=== PATIENT | female | born 1950 | race Caucasian/White ===

== ENCOUNTER 2016-10-23 12:01 | Outpatient (CLI) | payer MEDICAID, MEDICARE | END 2016-10-23 12:02 | disposition home or self-care (01) | DX: Z53.9 Procedure and treatment not carried out, unspecified reason (principal); N64.52 Nipple discharge; N64.4 Mastodynia ==

== ENCOUNTER 2016-10-30 15:55 | Outpatient (CLI) | payer MEDICARE, MEDICAID | END 2016-10-30 15:56 | disposition home or self-care (01) | DX: J44.9 Chronic obstructive pulmonary disease, unspecified (principal); R05 Cough ==

== ENCOUNTER 2016-12-09 07:22 | Day surgery (SDC) | payer MEDICARE, MEDICAID ==
[2016-12-09] MEDS ORDERED: LACTATED RINGERS 1,000 ML IV ONE (08:04)
[2016-12-09] MEDS ORDERED: BUPIVACAINE 0.25% PF 30 ML VIAL SUBQ ONE (09:28)
[2016-12-09] MEDS ORDERED: LIDOCAINE 1%-EPI 1:100000 20 ML MDV SUBQ ONE (09:28)
[2016-12-09] MEDS ORDERED: GLYCOPYRROLATE 1 MG/5 ML VIAL IVP ONE (09:30)
[2016-12-09] MEDS ORDERED: KETAMINE 500 MG/10 ML VIAL IVP ONE (09:30)
[2016-12-09] MEDS ORDERED: MIDAZOLAM 2 MG/2 ML VIAL IVP ONE (09:30)
[2016-12-09] MEDS ORDERED: ceFAZolin 1 GM VIAL IV ONE (09:30)
== END 2016-12-09 07:23 | disposition home or self-care (01) ==
PROC: 0JBL0ZZ Excision of Right Upper Leg Subcutaneous Tissue and Fascia, Open Approach (ICD-10-PCS; principal; 2016-12-09 08:30)
DX: D17.1 Benign lipomatous neoplasm of skin and subcutaneous tissue of trunk (principal); Z82.49 Family history of ischemic heart disease and other diseases of the circulatory system; Z81.1 Family history of alcohol abuse and dependence; Z87.891 Personal history of nicotine dependence; Z90.710 Acquired absence of both cervix and uterus; Z90.79 Acquired absence of other genital organ(s); Z90.722 Acquired absence of ovaries, bilateral; Z88.0 Allergy status to penicillin; J44.9 Chronic obstructive pulmonary disease, unspecified; E78.5 Hyperlipidemia, unspecified
CPT/HCPCS: 27043; 88304; J7120

== ENCOUNTER 2017-01-21 00:48 | Emergency (ER) | payer MEDICARE, MEDICAID | END 2017-01-21 03:19 | disposition home or self-care (01) | DX: N13.2 Hydronephrosis with renal and ureteral calculous obstruction (principal); Z87.442 Personal history of urinary calculi; K57.30 Diverticulosis of large intestine without perforation or abscess without bleeding; E78.00 Pure hypercholesterolemia, unspecified; J44.9 Chronic obstructive pulmonary disease, unspecified; E03.9 Hypothyroidism, unspecified; M19.90 Unspecified osteoarthritis, unspecified site ==

== ENCOUNTER 2017-02-20 17:52 | Outpatient (CLI) | payer MEDICARE, MEDICAID ==
[2017-02-20] MEDS ORDERED: IOPAMIDOL-300 100 ML VIAL IVP ONE (18:24)
--- NOTE | 2017-02-21 18:13 | CT Report ---
CONTRAST ENHANCED CT EXAM OF THE CHEST: 02/20/2017 CLINICAL HISTORY: Multiple pulmonary nodules. TECHNIQUE: Patient received 100 mL of Isovue-300 as a contrast agent. A CAT scan of the chest was o btained with axial, coronal and sagittal reconstruction images done at 5 x 5 mm intervals. FINDINGS: Mediastinum demonstrates no significant adenopathy is seen. Normal cardiac size is noted. No significant coronary artery calcification is seen. Axillary regions show no significant abnormality. Lung windows demonstrate multiple pulmonary nodules bilaterally. The largest nodule lies within the lateral aspect of the superior segment of the lingula. This nodule has spiculated margins. It measu res 1.3 cm x 1.2 cm. This finding may have been present on an old portable chest x-ray dated 014. It was certainly present on a chest x-ray from 10/30/2016. Its size is not dramatically change d. The spiculated margins of this lesion raise concern in regard to malignancy. Considering it was possibly present on 06/05/2014 without dramatic change in size, suggests the possibility that it may be an atypical appearing benign nodule with a secondary consideration being a very slow growing malig loan. Other possibilities, of course, include infectious processes such as TB. At least 17 additio nal nodules are noted in the left lung, all of them smaller than the ones seen in the lateral aspect of the superior segment of the lingula. Right lung demonstrates at least 12 nodules, the largest of which is in the lateral segment of the right middle lobe and measures 0.6 cm. Adrenal glands demonstrate a small left adrenal mass having CT numbers of 54 and measuring 1.5 cm. The right kidney shows four calculi in association with its pyelocalyceal system. Three calculi are associated with the upper pole calices. They measure 0.2 cm, 0.3 cm, 0.8 cm. There is a partially o bstructing calculus in the right renal pelvis. Bones show no significant abnormality. If patient has any old chest CTs or even older chest x-rays, they should be obtained for comparison w ith present study. Otherwise, chest consult should be considered for further evaluation. IMPRESSION: NUMEROUS SMALL PULMONARY NODULES ARE NOTED IN THE LUNG [place]. THE LARGEST ONE IS LOCAT ED WITHIN THE LATERAL SEGMENT OF THE LINGULA AND MEASURES 1.3 CM X 1.2 CM. THIS LESION IS SPICULATED . FINDINGS SUGGEST THAT IT MAY HAVE BEEN PRESENT ON AN OLD CHEST X-RAY DATED FAR BACK 06/05/20 14 WITHOUT CHANGE. THIS SUGGESTS THE POSSIBILITY OF A BENIGN LESION SUCH A NONCALCIFIED GRANULOMA OR SARCOID. SLOW GROWING CARCINOMA OR METASTATIC DISEASE CANNOT BE COMPLETELY EXCLUDED. RECOMMEND OLD CHEST X-RAYS AND/OR CHEST CTS BE OBTAINED FOR COMPARISON. IF NONE ARE AVAILABLE, THEN A CHEST CO NSULT SHOULD BE CONSIDERED. OTHER OPTIONS FOR FURTHER WORKUP INCLUDE BRONCHOSCOPY, PET/CT, AND/OR CT -GUIDED LUNG BIOPSY. JOB #: [id number] EXT JOB #:[id number]
== END 2017-02-20 17:53 | disposition home or self-care (01) ==
LOC: DI 17:52
PROVIDERS: ATTEND Family Medicine
DX: R91.8 Other nonspecific abnormal finding of lung field (principal)
CPT/HCPCS: 71260; Q9967

== ENCOUNTER 2017-03-12 14:19 | Outpatient (CLI) | payer MEDICARE, MEDICAID ==
--- NOTE | 2017-03-12 16:52 | Mammography Report ---
DIGITAL DIAGNOSTIC BILATERAL MAMMOGRAM: 03/12/2017 CLINICAL INDICATION: Left breast pain, nipple discharge. COMPARISON: 01/07/2014, 04/11/2010. TECHNIQUE: Bilateral CC and MLO views, left true lateral view, laterally exaggerated craniocaudal vie w, and spot magnification view. FINDINGS: The breasts again demonstrate postoperative changes of reduction. Heterogeneous fibrogland ular parenchyma is again seen. Postoperative changes are stable. No suspicious masses, clustered micr ocalcifications, or regions of architectural distortion are identified. IMPRESSION: BENIGN FINDINGS. RECOMMENDATION: ROUTINE ANNUAL SCREENING UNLESS OTHERWISE CLINICALLY INDICATED. BIRADS CATEGORY 2-BENIGN FINDINGS. STANDARD QUALIFYING STATEMENTS 1. This examination was reviewed with the aid of Computer-Aided Detection (CAD). 2. A negative or benign imaging report should not delay biopsy if clinically suspicious findings are present. Consider surgical consultation if warranted. More than 5% of cancers are not identified by i maging. 3. Dense breasts may obscure an underlying neoplasm. JOB #: [id number] EXT JOB #:[id number]
== END 2017-03-12 14:20 | disposition home or self-care (01) ==
LOC: DI 14:19
PROVIDERS: ATTEND Family Medicine
DX: N64.52 Nipple discharge (principal); N64.4 Mastodynia
CPT/HCPCS: 77066

== ENCOUNTER 2017-04-14 06:40 | Outpatient (CLI) | payer MEDICARE, MEDICAID ==
[2017-04-14 12:52] LABS: BASOPHILS % (AUTO) 0.4 %; EOSINOPHILS # (AUTO) 0.2 10^3/uL (0.0-0.7); EOSINOPHILS % (AUTO) 2.9 %; HGB - HEMOGLOBIN 14.4 g/dL (12.0-16.0); LYMPHOCYTES # (AUTO) 1.6 10^3/uL (1.5-3.5); MEAN CORPUSCULAR HEMOGLOBIN 30.9 pg (27.0-31.0); MEAN CORPUSCULAR HGB CONC 33.4 g/dL (32.0-36.0); MEAN CORPUSCULAR VOLUME 92.5 fL (81.0-99.0); MEAN PLATELET VOLUME 9.9 fL (7.9-10.8); MONOCYTES # (AUTO) 0.6 10^3/uL (0.0-1.0); MONOCYTES % (AUTO) 11.5 %; NEUTROPHILS # (AUTO) 3.1 10^3/uL (1.5-6.6); NEUTROPHILS % (AUTO) 56.2 %; NUCLEATED RED BLOOD CELLS AUTO 0.1 /100WBC; RED BLOOD COUNT 4.64 10^6/uL (4.20-5.40); RED CELL DISTRIBUTION WIDTH 12.7 % (12.0-15.0); UNCORRECTED WHITE BLOOD COUNT 5.6 x10^3/uL; WHITE BLOOD COUNT 5.6 x10^3/uL (4.8-10.8)
[2017-04-14 13:23] LABS: ALBUMIN/GLOBULIN RATIO 1.1 (1.0-2.2); BILIRUBIN,TOTAL 0.4 mg/dL (0.2-1.0); BUN - BLOOD UREA NITROGEN 14 mg/dL (6-20); CALCIUM 9.8 mg/dL (8.5-10.3); CARBON DIOXIDE - CO2 29 mmol/L (21-32); CHLORIDE 103 mmol/L (101-111); CHOL/HDL RATIO 4.6 (<4.4); CHOLESTEROL 251 mg/dL; CREATININE 0.6 mg/dL (0.4-1.0); GFR - MDRD 100 (>89); GLUCOSE 124 mg/dL (70-100); HDL CHOLESTEROL 55 mg/dL; LDL/HDL RATIO 2.9 (<4.4); POTASSIUM 4.1 mmol/L (3.5-5.0); SODIUM 141 mmol/L (135-145); TOTAL PROTEIN 7.6 g/dL (6.7-8.2); TRIGLYCERIDES 196 mg/dL; VLDL CHOLESTEROL 39 mg/dL
== END 2017-04-14 06:41 | disposition home or self-care (01) ==
LOC: LAB.N 06:40
PROVIDERS: ATTEND Family Medicine
DX: L40.9 Psoriasis, unspecified (principal); E78.5 Hyperlipidemia, unspecified
CPT/HCPCS: 36415; 80053; 80061; 85025

== ENCOUNTER 2017-06-18 12:43 | Outpatient (CLI) | payer MEDICARE, MEDICAID | END 2017-06-18 12:44 | disposition critical access hospital (66) | LOC: EMS 12:43 | PROVIDERS: ATTEND Surgery | DX: R10.9 Unspecified abdominal pain (principal); R11.2 Nausea with vomiting, unspecified | CPT/HCPCS: A0425; A0427 ==

== ENCOUNTER 2017-06-18 12:59 | Emergency (ER) | payer MEDICARE, MEDICAID ==
[2017-06-18] MEDS ORDERED: KETOROLAC 60 MG/2 ML VIAL IVP STA (13:22)
[2017-06-18] MEDS ORDERED: ONDANSETRON 4 MG/2 ML VIAL IVP STA (13:22)
[2017-06-18] MEDS ORDERED: SODIUM CHLORIDE 0.9% 1,000 ML IV ONE (13:31)
[2017-06-18] MEDS ORDERED: KETOROLAC 30 MG/ML VIAL ONE ×2 (13:35→13:36)
[2017-06-18] MEDS ORDERED: ONDANSETRON 4 MG/2 ML VIAL ONE (13:35)
[2017-06-18 14:06] LABS: BILIRUBIN,URINE NEGATIVE (NEGATIVE); PH,URINE 5.5 PH (5.0-7.5)
[2017-06-18 14:07] LABS: UA w/ MICROSCOPIC CHARGE YES
[2017-06-18 14:10] LABS: BASOPHILS % (AUTO) 0.3 %; EOSINOPHILS # (AUTO) 0.1 10^3/uL (0.0-0.7); EOSINOPHILS % (AUTO) 1.3 %; HCT - HEMATOCRIT 43.7 % (37.0-47.0); HGB - HEMOGLOBIN 14.7 g/dL (12.0-16.0); LYMPHOCYTES # (AUTO) 1.2 10^3/uL (1.5-3.5); LYMPHOCYTES % (AUTO) 16.6 %; MEAN CORPUSCULAR HEMOGLOBIN 31.5 pg (27.0-31.0); MEAN CORPUSCULAR HGB CONC 33.7 g/dL (32.0-36.0); MEAN CORPUSCULAR VOLUME 93.3 fL (81.0-99.0); MEAN PLATELET VOLUME 9.4 fL (7.9-10.8); MONOCYTES # (AUTO) 0.7 10^3/uL (0.0-1.0); NEUTROPHILS # (AUTO) 5.3 10^3/uL (1.5-6.6); NEUTROPHILS % (AUTO) 72.8 %; RED BLOOD COUNT 4.68 10^6/uL (4.20-5.40); RED CELL DISTRIBUTION WIDTH 12.9 % (12.0-15.0); UNCORRECTED WHITE BLOOD COUNT 7.3 x10^3/uL; WHITE BLOOD COUNT 7.3 x10^3/uL (4.8-10.8)
--- NOTE | 2017-06-18 14:13 | ED Physician Documentation ---
History of Present Illness - Stated complaint Stated Complaint: FLANK PX - Chief complaint Chief Complaint: Abd Pain - Additonal information Additional information: hx from pt difficult to obatin hx 2/2 her pain seems she developed severe R flank and diffuse abd pain at 1215, no fever or chills, + nausea, no diarrhea, no urinary sx she states no pior surgery or hx of similar sx per EMR hx renal colic Review of Systems Constitutional: denies: Fever, Chills Cardiac: denies: Chest pain / pressure Respiratory: denies: Dyspnea, Cough GI: reports: Abdominal Pain, Nausea : denies: Dysuria Musculoskeletal: reports: Back pain Endocrine: denies: Easy bruising / bleeding Immunocompromised: denies: Immunocompromised PD PAST MEDICAL HISTORY - Past Medical History Past Medical History: No Cardiovascular: High cholesterol Respiratory: COPD Neuro: None Endocrine/Autoimmune: HyPOthyroidism GI: None : Kidney stones HEENT: Other Psych: None Musculoskeletal: Osteoarthritis, Chronic back pain Derm: Psoriasis - Past Surgical History Past Surgical History: Yes /[employer]ENDANT: Hysterectomy, Oophrectomy, Breast reduction HEENT: Tonsil/Adenoidectomy - Present Medications Home Medications: Ambulatory Orders Medication Instructions Recorded Confirmed Ibuprofen [Advil] 200 mg PO BID 12/09/16 12/09/16 Ondansetron Odt [Zofran] 4 mg TL Q6H PRN #14 tablet 01/21/17 Tamsulosin [Flomax] 0.4 mg PO DAILY #7 capsule 01/21/17 HYDROcod/ACETAM 5/325 [[place] 5/325] 1 ea PO Q6H PRN #6 tablet 06/18/17 Sulfamethox/Trimeth 800/160 1 cap PO BID #14 06/18/17 [Bactrim Ds 800/160] - Allergies Allergies/Adverse Reactions: Allergies Allergy/AdvReac Type Severity Reaction Status Date / Time aspirin Allergy Nausea Verified 01/21/17 01:02 Penicillins Allergy vomiting, Verified 01/21/17 01:02 visual changes - Social History Does the pt smoke?: No Smoking Status: Never smoker Does the pt drink ETOH?: Yes Does the pt have substance abuse?: No - POLST Patient has POLST: No PD ED PE NORMAL - Vitals Vital signs reviewed: Yes - General General: Alert and oriented X 3 - HEENT HEENT: PERRL - Neck Neck: Supple, no meningeal sign - Cardiac Cardiac: RRR - Respiratory Respiratory: No respiratory distress, Clear bilaterally - Abdomen Abdomen: Soft, Other (mod diffuse TTP without peritoneal signs) - Back Back: No spinal TTP - Derm Derm: Other (psoriaos to hands and back, no shingles) - Extremities Extremities: No deformity - Neuro Neuro: No motor deficit, No sensory deficit - Psych Psych: Other (angry and in pain) Results - Vitals Vitals: Vital Signs - 24 hr 06/18/17 13:04 Temperature 36.4 C L Heart Rate 99 Respiratory 19 Rate Blood Pressure 137/83 H O2 Saturation 94 Oxygen O2 Source Room air - Labs Labs: Laboratory Tests 06/18/17 06/18/17 06/18/17 13:20 13:46 13:46 WBC 7.3 RBC 4.68 Hgb 14.7 Hct 43.7 MCV 93.3 MCH 31.5 H MCHC 33.7 RDW 12.9 Plt Count 205 MPV 9.4 Neut # 5.3 Lymph # 1.2 L [place] # 0.7 Eos # 0.1 Baso # 0.0 Absolute Nucleated RBC 0.00 Nucleated RBCs 0.0 Sodium 141 Potassium 4.4 Chloride 103 Carbon Dioxide 25 Anion Gap 13.0 BUN 22 H Creatinine 0.7 Estimated GFR (MDRD) 83 L Glucose 147 H Calcium 9.9 Total Bilirubin 0.7 AST 20 ALT 27 Alkaline Phosphatase 61 Total Protein 8.0 Albumin 4.1 Globulin 3.9 Albumin/Globulin Ratio 1.1 Lipase 27 Urine Color YELLOW Urine Clarity CLOUDY Urine pH 5.5 Ur Specific [place] >=1.030 H Urine Protein 30 H Urine Glucose (UA) NEGATIVE Urine Ketones NEGATIVE Urine Occult Blood LARGE H Urine Nitrite NEGATIVE Urine Bilirubin NEGATIVE Urine Urobilinogen 0.2 (NORMAL) Ur Leukocyte Esterase SMALL H Urine RBC 11-25 H Urine WBC 11-25 H Ur Squamous Epith Cells MOD Squamous H Urine Bacteria Moderate H Ur Microscopic Review INDICATED Urine Culture Comments NOT INDICATED - Rads (name of study) CT AP Radiology: See rad report PD MEDICAL DECISION MAKING - ED course ED course: large blood and renal stones and flank pain - but no dydro or ureteral stone on CT - may recently passed (pain has resolved) also + for infection since no obstructive process feel safe to dc with antibiotics Departure - Departure Disposition: 01 Home, Self Care Clinical Impression: Pyelonephritis, Renal colic on right side Instructions: ED Stone Renal W Colic, ED Kidney Infec Female Follow-Up: Renny Dumont MD [Primary Care Provider] - (Friday for a recheck before the weekend) Prescriptions: Sulfamethox/Trimeth 800/160 [Bactrim Ds 800/160] 1 cap PO BID #14 HYDROcod/ACETAM 5/325 [[place] 5/325] 1 ea PO Q6H PRN #6 tablet PRN Reason: Severe Pain Comments: The urine shows blood and well as infection. The CT scan shows many kidney stones but none presently being passed So I think it is safe for you to go home with pain medication and antibiotics And please get your blood pressure rechecked - it was high today
[2017-06-18 14:24] LABS: UR CULTURE IF IND NOT INDICATED
[2017-06-18 14:27] LABS: ALBUMIN/GLOBULIN RATIO 1.1 (1.0-2.2); BILIRUBIN,TOTAL 0.7 mg/dL (0.2-1.0); CALCIUM 9.9 mg/dL (8.5-10.3); CREATININE 0.7 mg/dL (0.4-1.0); POTASSIUM 4.4 mmol/L (3.5-5.0)
--- NOTE | 2017-06-18 16:10 | CT Preliminary Report ---
Exam: CT Abdomen/Pelvis W/O IMPRESSION: 1. Multiple bilateral renal calculi similar to previous study, the largest in the right renal pelvis. No hydronephrosis. 2. Moderate diverticulosis and other chronic or incidental findings. [facility] SITE ID: [id number]
--- NOTE | 2017-06-18 16:13 | CT Report ---
EXAM: CT ABDOMEN AND PELVIS (CT KUB) EXAM DATE: 06/18/2017 03:46 PM. CLINICAL HISTORY: R flank pain hx stones. COMPARISONS: None. TECHNIQUE: Routine axial helical CT imaging was performed through the abdomen and pelvis without IV c ontrast. Reconstructions: Coronal and sagittal. In accordance with CT protocol optimization, one or more of the following dose reduction techniques w ere utilized for this exam: automated exposure control, adjustment of mA and/or KV based on patient s ize, or use of iterative reconstructive technique. FINDINGS: Lung Bases: Numerous small nodules, the largest measuring 6 mm, similar to previous study. No acute i nfiltrate, consolidation, or effusion. Right Kidney/Ureter: UVJ stone measuring 14 x 9 mm, similar to previous study. At least 6 additional nonobstructing renal calculi, the largest measuring 6 mm. No ureteral stone. Otherwise unremarkable. Left Kidney/Ureter: Nonobstructing lower pole stone measuring about 6 x 3 mm. Otherwise unremarkable. No hydronephrosis. Other Solid Organs: Small left adrenal adenoma. Otherwise unremarkable adrenals. Unremarkable liver, spleen, and pancreas. Gallbladder/Bile Ducts: Unremarkable. Peritoneal Cavity: Moderate colonic diverticulosis. No diverticulitis at this time. Normal appendix. No bowel dilation. No free fluid, free air, or lymphadenopathy. Pelvic Organs: No bladder stones or wall thickening. Noncontrast images of the visualized pelvic orga ns are unremarkable. Vasculature: Unremarkable. Other: None. IMPRESSION: 1. Multiple bilateral renal calculi similar to previous study, the largest in the right renal pelvis. No hydronephrosis. 2. Moderate diverticulosis and other chronic or incidental findings. [facility] Referring Provider Line: [phone] SITE ID: [id number]
[2017-06-18 16:53] VITALS: BP 135/84
== END 2017-06-18 17:00 | disposition home or self-care (01) ==
LOC: EDUNIT# → ED 12:59
DX: N20.0 Calculus of kidney (principal); E03.9 Hypothyroidism, unspecified
CPT/HCPCS: 36415; 74176; 80053; 81001; 81003; 83690; 85025; 87086; 96374; 96375; 99283; 99284

== ENCOUNTER 2017-08-13 13:37 | Outpatient (CLI) | payer MEDICARE, MEDICAID ==
--- NOTE | 2017-08-13 16:16 | XRAY Report ---
TWO VIEW CHEST: 08/13/2017 CLINICAL INDICATION: Cough. COMPARISON: Chest CT of 02/20/2017, chest film of 10/30/2016. FINDINGS: Frontal and lateral views of the chest demonstrate a normal cardiac silhouette. The lungs remain hyperinflated, compatible with COPD. Pulmonary nodules are stable from previous. No new consol idation, effusion, or pneumothorax is present. IMPRESSION: STABLE HYPERINFLATION AND PULMONARY NODULES. NO EVIDENCE OF ACUTE CARDIOPULMONARY DISEAS E. JOB #: [id number] EXT JOB #:[id number]
== END 2017-08-13 13:38 | disposition home or self-care (01) ==
LOC: DI.N 13:37
PROVIDERS: ATTEND Family Medicine
DX: R91.8 Other nonspecific abnormal finding of lung field (principal)
CPT/HCPCS: 71020

== ENCOUNTER 2017-12-28 10:27 | Emergency (ER) | payer MEDICARE, MEDICAID ==
[2017-12-28 10:37] VITALS: BP 127/63
--- NOTE | 2017-12-28 13:34 | ED Physician Documentation ---
PD HPI Fall - Stated complaint Stated Complaint: HEAD PX/GLF - Chief complaint Chief Complaint: Trauma Hd/Nk - History obtained from History obtained from: Patient, Family - History of Present Illness Mechanism of injury: Lost balance Fall distance: Standing position Where injury occurred: Home Timing - onset: Today Injury(ies) location: Face, Neck, Right Upper Extremity Quality of pain: Pain, Throbbing Associated symptoms: Nasal drainage, Neck pain. No: LOC, AMS, Amnesia, Seizures , Ear drainage, Weakness, Paresthesias, Dyspnea, Nausea / vomiting, Hematemesis , Abdominal distension Symptoms improve with: Rest Worsens with: Movement, Palpation Contributing factors: No: Anticoagulated Similar symptoms before: Has not had sx before Recently seen: Not recently seen - Additional information Additional information: 67 y/o female was in her kitchen today when her knees gave out and she collapsed to the floor face first. She did not have LOC but she has pain in her face over the right maxillary sinus. She denies any visual changes and she denies nausea or dizziness. She did have a nose bleed. She has pain in her neck and in her right clavicle. Review of Systems Constitutional: denies: Fever, Chills Eyes: denies: Loss of vision, Decreased vision, Discharge, Irritation Ears: denies: Ear pain Nose: reports: Congestion, Sinus pressure / pain. denies: Rhinorrhea / runny nose Throat: denies: Sore throat Cardiac: denies: Chest pain / pressure, Palpitations Respiratory: denies: Dyspnea, Cough GI: denies: Abdominal Pain, Nausea, Vomiting : denies: Dysuria, Frequency Skin: denies: Rash Musculoskeletal: reports: Neck pain, Extremity pain, Joint pain. 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, Breast reduction HEENT: Tonsil/Adenoidectomy - Present Medications Home Medications: Ambulatory Orders Medication Instructions Recorded Confirmed Ibuprofen [Advil] 100 mg PO 12/28/17 cefUROXime axetil [Ceftin] 250 mg PO Q12H #10 tablet 12/28/17 - Allergies Allergies/Adverse Reactions: Allergies Allergy/AdvReac Type Severity Reaction Status Date / Time aspirin Allergy Nausea Verified 12/28/17 10:37 Penicillins Allergy vomiting, Verified 12/28/17 10:37 visual changes - Social History Does the pt smoke?: No Smoking Status: Never smoker Does the pt drink ETOH?: Yes Does the pt have substance abuse?: No - Immunizations Immunizations are current?: Yes - POLST Patient has POLST: No PD ED PE NORMAL - Vitals Vital signs reviewed: Yes (normal ) - General General: Alert and oriented X 3, No acute distress, Well developed/nourished - HEENT HEENT: PERRL, EOMI, Ears normal, Other (dry mucous membranes pain to palpation to the right maxillary sinus. There is no crepitance or deformity noticed and there is no entrapment present. There is not tenderness to the orbital rim except to the medial superior portion. ) - Neck Neck: Supple, no meningeal sign, Other (There is bony point tenderness to the right lower cervical spine. ) - Cardiac Cardiac: RRR, No murmur - Respiratory Respiratory: No respiratory distress, Clear bilaterally - Abdomen Abdomen: Soft, Non tender - Back Back: No CVA TTP, No spinal TTP - Derm Derm: Normal color, Warm and dry, No rash - Extremities Extremities: No deformity, No edema, Other (There is tenderness without deformity or crepitance to the right proximal clavicle. ) Results - Vitals Vitals: Vital Signs - 24 hr 12/28/17 10:32 Temperature 36.2 C L Heart Rate 89 Respiratory 16 Rate Blood Pressure 127/63 O2 Saturation 99 Oxygen O2 Source Room air - Rads (name of study) CT cervical spine without Radiology: Prelim report reviewed (Impression: 1. No acute osseous findings. Advanced multilevel cervical spondylosis, seen previously by MRI 12/08/2014. 2. Left carotid calcific atherosclerotic disease.), EMP read indepedently, See rad report Rt clavicle Radiology: Prelim report reviewed (Impression: No acute osseous abnormality.), EMP read indepedently, See rad report CT facial bones Radiology: Prelim report reviewed (Impression: 1. Slightly displaced, slightly depressed fracture of the anterior wall of the right maxillary sinus (series 3 image 83) with blood within the right maxillary sinus. 2. No CT evidence of additional facial fractures.), EMP read indepedently, See rad report Procedures - IVC sono (time) 1105 Bedside IVC sono: IVC measures (cm) (1.21), IVC collapsed c insp (cm) (complete) , Dehydration (mild est 1 liter) PD MEDICAL DECISION MAKING - ED course Complexity details: reviewed results, re-evaluated patient, considered differential, d/w patient, d/w family ED course: 67-year-old female with a face first fall does appear to have fracture through the right maxillary sinus with blood pooling in the sinus. Departure - Departure Disposition: 01 Home, Self Care Clinical Impression: Dehydration Fracture of maxillary sinus Qualifiers: Encounter type: initial encounter Fracture type: closed Qualified Code(s): S02.401A - Maxillary fracture, unspecified side, initial encounter for closed fracture Condition: Stable Instructions: ED Dehydration, ED Fx Face Follow-Up: Renny Dumont MD [Primary Care Provider] - Jerrell Rocha DMD [Physician No Access] - Prescriptions: cefUROXime axetil [Ceftin] 250 mg PO Q12H #10 tablet Discharge Date/Time: 12/28/17 14:16
--- NOTE | 2017-12-28 15:30 | CT Report ---
EXAM: CT CERVICAL SPINE WITHOUT CONTRAST DATE: 12/28/2017 11:47 AM. HISTORY: Fall with face injury, neck pain. COMPARISONS: Prior CT study chest 02/20/2017, prior plain film right clavicle 12/28/2017, prior MRI c ervical spine 12/08/2014. TECHNIQUE: Thin-section axial images were acquired of the cervical spine without contrast. Post-proce ssing: Coronal and sagittal reformats. Other: None. In accordance with CT protocol optimization, one or more of the following dose reduction techniques w ere utilized for this exam: automated exposure control, adjustment of mA and/or KV based on patient s ize, or use of iterative reconstructive technique. Findings: Relevant images are indicated (image number, series number). There is slight grade 1 anterolisthesis C2 on C3, grade 1 retrolisthesis C3 on C4, C4 and C5. There i s alignment C5-C6, C6-C7 with slight grade 1 anterolisthesis C7 on T1. There are no acute osseous findings. There is no fracture. There is mild left posterior atlantoaxial subluxation C1 on C2 with corresponding mild anterior subluxation on the right C1-C2 atlantoaxial art iculation. These degenerative changes appear present on the prior MRI cervical spine 12/08/2014. There is no prevertebral soft tissue swelling. Upper airway appears patent. There is no cervical para spinal mass or collection. Thyroid not enlarged. Mildly dense left carotid calcific atherosclerotic d isease. Impressions: 1. No acute osseous findings. Advanced multilevel cervical spondylosis, seen previously by MRI 2014. 2. Left carotid calcific atherosclerotic disease. [facility] Referring Provider Line: [phone] SITE ID: [id number]
--- NOTE | 2017-12-28 15:30 | XRAY Report ---
EXAM: RIGHT CLAVICLE RADIOGRAPHY EXAM DATE: 12/28/2017 11:59 AM. CLINICAL HISTORY: Fall right clavicle pain. COMPARISON: None. TECHNIQUE: 2 views. FINDINGS: Bones: No definite acute fracture. No focal osseous lesion. Joints: Moderate-severe acromioclavicular joint DJD. Soft Tissues: Unremarkable. IMPRESSION: No acute osseous abnormality. [facility] Referring Provider Line: [phone] SITE ID: [id number]
--- NOTE | 2017-12-28 15:30 | CT Preliminary Report ---
Exam: CT CERVICAL SPINE W/O Impressions: 1. No acute osseous findings. Advanced multilevel cervical spondylosis, seen previously by MRI 2014. 2. Left carotid calcific atherosclerotic disease. [facility] SITE ID: [id number]
--- NOTE | 2017-12-28 15:30 | CT Report ---
EXAM: CT MAXILLOFACIAL WITHOUT CONTRAST EXAM DATE: 12/28/2017 12:06 PM. CLINICAL HISTORY: Fall right maxillary and right orbital rim pain. COMPARISONS: CT sinuses 04/27/2014 TECHNIQUE: Thin-section axial images were acquired of the face without contrast. Post-processing: Cor onal and sagittal reformats. Other: None. In accordance with CT protocol optimization, one or more of the following dose reduction techniques w ere utilized for this exam: automated exposure control, adjustment of mA and/or KV based on patient s ize, or use of iterative reconstructive technique. FINDINGS: Soft Tissue: The infratemporal fossa and parapharyngeal spaces are unremarkable. Orbits: Status post right lens replacement surgery. Otherwise unremarkable. Bones/sinuses: There is a slightly displaced, slightly depressed fracture of the anterior wall of the right maxillary sinus (series 3 image 83) with blood within the right maxillary sinus. In addition, there is a large mucous retention cyst/polyp within the right maxillary sinus. Temporomandibular Joints: The temporomandibular joints are symmetric and normally located. Other: Moderate degenerative spondylosis visualized upper cervical spine. IMPRESSION: 1. Slightly displaced, slightly depressed fracture of the anterior wall of the right maxillary sinus (series 3 image 83) with blood within the right maxillary sinus. 2. No CT evidence of additional facial fractures. [facility] Referring Provider Line: [phone] SITE ID: [id number]
--- NOTE | 2017-12-28 15:30 | XRAY Preliminary Report ---
Exam: XR CLAVICLE RT IMPRESSION: No acute osseous abnormality. [facility] SITE ID: [id number]
== END 2017-12-28 14:16 | disposition home or self-care (01) ==
LOC: ED 10:27
DX: E86.0 Dehydration (principal); S02.401A Maxillary fracture, unspecified side, initial encounter for closed fracture; W18.30XA Fall on same level, unspecified, initial encounter; W22.09XA Striking against other stationary object, initial encounter; Y92.000 Kitchen of unspecified non-institutional (private) residence as the place of occurrence of the external cause; E05.90 Thyrotoxicosis, unspecified without thyrotoxic crisis or storm; E78.00 Pure hypercholesterolemia, unspecified
CPT/HCPCS: 70486; 72125; 99283; 99284

== ENCOUNTER 2018-03-18 14:26 | Outpatient (CLI) | payer MEDICARE, MEDICAID ==
--- NOTE | 2018-03-19 20:01 | CT Report ---
Procedure Date: 03/18/2018 Accession Number: [id number] / [id number] Procedure: CT - Chest W/O CPT Code: FULL RESULT: EXAM: CT CHEST WITHOUT CONTRAST. EXAM DATE: 03/18/2018 02:51 PM. CLINICAL HISTORY: Multiple pulmonary nodules. COMPARISONS: Chest CT 02/20/2017. TECHNIQUE: Routine helical CT imaging was performed through the chest. IV contrast: None. Reconstructions: Coronal and sagittal. In accordance with CT protocol optimization, one or more of the following dose reduction techniques were utilized for this exam: automated exposure control, adjustment of mA and/or KV based on patient size, or use of iterative reconstructive technique. FINDINGS: Lungs/Pleura: Multiple bilateral pulmonary nodules appear unchanged. Largest nodule in left upper lobe measures 12 x 10 mm (27/4), previously reported as superior lingular nodule. Other largest nodules 6 mm in right middle lobe (41) and left lower lobe (48). No new nodule or airspace opacity. Stable reticular scarring mainly of the lung bases. No central endobronchial obstructing lesion or bronchiectasis. No pneumothorax or pleural effusion. Mediastinum: No mediastinal or hilar adenopathy. Normal heart size without pericardial effusion. Stable caliber mediastinal vasculature. No esophageal dilatation. Bones: Mild scoliosis and degenerative changes of the spine. No aggressive bone destructive process. Visualized Abdomen: Stable low density left adrenal thickening including 1.5 cm nodular thickening of the body, likely benign adenoma. Unremarkable right adrenal. Other: Asymmetric fibroglandular tissue in the breasts. IMPRESSION: 1. Stable bilateral pulmonary nodules compared to 02/20/2017, largest 12 x 10 mm in left upper lobe. Recommend further follow-up at 18-24 months per Fleischner Society guidelines 2. No pathologic adenopathy. 3. Stable small left adrenal nodule compatible with benign adenoma. [facility]
== END 2018-03-18 14:27 | disposition home or self-care (01) ==
LOC: DI 14:26
PROVIDERS: ATTEND Family Medicine
DX: R91.8 Other nonspecific abnormal finding of lung field (principal); E27.8 Other specified disorders of adrenal gland
CPT/HCPCS: 71250

== ENCOUNTER 2018-04-06 15:44 | Emergency (ER) | payer MEDICARE, MEDICAID ==
--- NOTE | 2018-04-06 16:17 | ED Physician Documentation ---
PD HPI DYSPNEA - Stated complaint Stated Complaint: SOA - Chief complaint Chief Complaint: Cardiac - History obtained from History obtained from: Patient - History of Present Illness Timing - onset: How many days ago (3) Timing - onset during: Rest Timing - details: Intermittant Worsened by: Exertion. No: Laying flat, Coughing Similar symptoms before: No diagnosis Recently seen: Not recently seen - Additional information Additional information: Patient is a 67 year old female who is presenting to the emergency department for dyspnea on exertion. Patient states that it has been going on for over a few weeks. patient states that she followed up with her doctor and they did a ct and it was normal. Patient states that her symptoms persisted and so she came to the emergency department for evaluation. Review of Systems Ten Systems: 10 systems reviewed and negative Cardiac: reports: Chest pain / pressure. denies: Palpitations, Calf pain Respiratory: reports: Dyspnea. denies: Cough, Wheezing GI: reports: Abdominal Pain. 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 HEENT: Tonsil/Adenoidectomy - Present Medications Home Medications: Ambulatory Orders Medication Instructions Recorded Confirmed Ibuprofen [Advil] 100 mg PO 12/28/17 cefUROXime axetil [Ceftin] 250 mg PO Q12H #10 tablet 12/28/17 - Allergies Allergies/Adverse Reactions: Allergies Allergy/AdvReac Type Severity Reaction Status Date / Time aspirin Allergy Nausea Verified 12/28/17 10:37 Penicillins Allergy vomiting, Verified 12/28/17 10:37 visual changes - Social History Does the pt smoke?: No Smoking Status: Never smoker Does the pt drink ETOH?: Yes Does the pt have substance abuse?: No - Immunizations Immunizations are current?: Yes - POLST Patient has POLST: No PD ED PE NORMAL - Vitals Vital signs reviewed: Yes - General General: Alert and oriented X 3, No acute distress - HEENT HEENT: Atraumatic, PERRL, Moist mucous membranes - Neck Neck: No JVD - Cardiac Cardiac: RRR, No murmur - Respiratory Respiratory: No respiratory distress, Clear bilaterally - Abdomen Abdomen: Soft, Non tender, Non distended - Derm Derm: Normal color, Warm and dry, No rash - Extremities Extremities: No deformity, No calf tenderness / cord - Neuro Neuro: Alert and oriented X 3, No motor deficit, Normal speech Eye Opening: Spontaneous Results - Vitals Vitals: Vital Signs - 24 hr 04/06/18 04/06/18 15:49 19:22 Temperature 35.4 C L Heart Rate 109 H 88 Respiratory 26 H 18 Rate Blood Pressure 146/89 H 139/95 H O2 Saturation 96 95 Oxygen O2 Source Room air - EKG (time done) 1605 Rate: Rate (enter#) (105) Rhythm: Sinus tachycardia Libby: Normal Intervals: Normal VA Ischemia: Normal ST segments Compare to prior EKG: Unchanged from prior EKG 1839 Rate: Rate (enter#) (86) Rhythm: NSR [place]: Normal Intervals: Normal VA QRS: Normal Other comments: Other comments (tachycardia resolved) - Labs Labs: Laboratory Tests 04/06/18 04/06/18 04/06/18 16:30 16:30 16:30 WBC 4.3 L RBC 4.69 Hgb 14.7 Hct 44.1 MCV 93.9 MCH 31.3 H MCHC 33.3 RDW 12.9 Plt Count 205 MPV 9.4 Neut # (Auto) 2.8 Lymph # (Auto) 1.0 L [place] # (Auto) 0.4 Eos # (Auto) 0.1 Baso # (Auto) 0.0 Absolute Nucleated RBC 0.01 Nucleated RBC % 0.2 Sodium 140 Potassium 4.1 Chloride 102 Carbon Dioxide 29 Anion Gap 9.0 BUN 14 Creatinine 0.8 Estimated GFR (MDRD) 71 L Glucose 211 H Calcium 9.4 Phosphorus 3.6 Magnesium 1.8 Total Bilirubin 0.6 AST 25 ALT 24 Alkaline Phosphatase 51 Troponin I < 0.04 B-Natriuretic Peptide Total Protein 7.5 Albumin 3.7 Globulin 3.8 Albumin/Globulin Ratio 1.0 Lipase 27 04/06/18 04/06/18 16:30 18:35 WBC RBC Hgb Hct MCV MCH MCHC RDW Plt Count MPV Neut # (Auto) Lymph # (Auto) [place] # (Auto) Eos # (Auto) Baso # (Auto) Absolute Nucleated RBC Nucleated RBC % Sodium Potassium Chloride Carbon Dioxide Anion Gap BUN Creatinine Estimated GFR (MDRD) Glucose Calcium Phosphorus Magnesium Total Bilirubin AST ALT Alkaline Phosphatase Troponin I < 0.04 B-Natriuretic Peptide 24 Total Protein Albumin Globulin Albumin/Globulin Ratio Lipase - Rads (name of study) ct chest angio Radiology: Final report received (no PE appreciated) PD MEDICAL DECISION MAKING - ED course Complexity details: reviewed old records, reviewed results, re-evaluated patient , considered differential, d/w patient ED course: patient was seen and examined at bedside. IV access was gained and labs were drawn. ekg was performed and showed sinus tach, but no ischemic changes. Imaging was ordered. When patient returned from imaging results were reviewed. there was no acute pe. repeat ekg and troponin were unremarkable. patient's other diagnostics showed no acute abnormalities. Patient required no further inpatient work up and was stable for discharge with outpatient follow up. - Sepsis Event Vital Signs: Vital Signs - 24 hr 04/06/18 04/06/18 15:49 19:22 Temperature 35.4 C L Heart Rate 109 H 88 Respiratory 26 H 18 Rate Blood Pressure 146/89 H 139/95 H O2 Saturation 96 95 Oxygen O2 Source Room air Departure - Departure Disposition: 01 Home, Self Care Clinical Impression: Atypical chest pain Condition: Good Instructions: ED Chest Pain Atypical Unkn Cause Follow-Up: Renny Dumont MD [Primary Care Provider] - Within 3 Days Comments: Your diagnostics today were within normal limits. there was no sign of a heart attack or blood clots. the next steps in your care would be for an echocardiogram and a stress test. you should call your doctor tomorrow to schedule the follow up visits and tests. You may return to the emergency department at any time for new, worsening or uncontrollable symptoms. Discharge Date/Time: 04/06/18 19:57
[2018-04-06 16:36] LABS: BASOPHILS % (AUTO) 0.7 %; EOSINOPHILS # (AUTO) 0.1 10^3/uL (0.0-0.7); HGB - HEMOGLOBIN 14.7 g/dL (12.0-16.0); LYMPHOCYTES % (AUTO) 22.4 %; MEAN CORPUSCULAR HEMOGLOBIN 31.3 pg (27.0-31.0); MEAN CORPUSCULAR HGB CONC 33.3 g/dL (32.0-36.0); MEAN CORPUSCULAR VOLUME 93.9 fL (81.0-99.0); MEAN PLATELET VOLUME 9.4 fL (7.9-10.8); MONOCYTES # (AUTO) 0.4 10^3/uL (0.0-1.0); MONOCYTES % (AUTO) 9.5 %; NEUTROPHILS # (AUTO) 2.8 10^3/uL (1.5-6.6); NEUTROPHILS % (AUTO) 64.4 %; PLT - PLATELET COUNT 205 10^3/uL (130-450); RED BLOOD COUNT 4.69 10^6/uL (4.20-5.40); RED CELL DISTRIBUTION WIDTH 12.9 % (12.0-15.0); WHITE BLOOD COUNT 4.3 x10^3/uL (4.8-10.8)
[2018-04-06] MEDS ORDERED: IOPAMIDOL-300 100 ML VIAL ONE (16:42)
[2018-04-06 16:51] LABS: ALBUMIN 3.7 g/dL (3.2-5.5); BILIRUBIN,TOTAL 0.6 mg/dL (0.2-1.0); CALCIUM 9.4 mg/dL (8.5-10.3); CREATININE 0.8 mg/dL (0.4-1.0); MAGNESIUM 1.8 mg/dL (1.7-2.8); PHOSPHORUS 3.6 mg/dL (2.5-4.6); TOTAL PROTEIN 7.5 g/dL (6.7-8.2)
[2018-04-06] MEDS ORDERED: IOPAMIDOL-300 100 ML VIAL IVP ONE (17:42)
--- NOTE | 2018-04-06 18:22 | CT Report ---
Procedure Date: 04/06/2018 Accession Number: [id number] / [id number] Procedure: CT - Chest Angio (PE) CPT Code: FULL RESULT: EXAM: CT ANGIOGRAM CHEST EXAM DATE: 04/06/2018 05:26 PM. CLINICAL HISTORY: Dyspnea COMPARISON: 03/18/2018. TECHNIQUE: Routine helical imaging was performed through the chest in the pulmonary arterial phase. IV Contrast: 80 ML ISOVUE 300. Reconstructions: Coronal 3-D MIP reconstructions.Sagittal and coronal. In accordance with CT protocol optimization, one or more of the following dose reduction techniques were utilized for this exam: automated exposure control, adjustment of mA and/or KV based on patient size, or use of iterative reconstructive technique. FINDINGS: Pulmonary Arteries: Diagnostic quality: Adequate through the segmental arteries. No evidence for acute or chronic pulmonary emboli. Lungs/Pleura: No evidence of acute consolidation or effusion. There are numerous stable pulmonary nodules within the lungs. Index examples include left upper lobe 1.1 x 1.2 cm image 62 series 5,, left lower lobe 0.6 cm image 91, and right middle lobe 0.5 cm image 101. No central airway abnormalities are seen. No pneumothorax. Mediastinum: Normal. No cardiac enlargement or adenopathy. Thoracic Aorta: Unremarkable. Upper Abdomen: Unremarkable. Other: None. IMPRESSION: 1. No evidence of acute pulmonary embolism. 2. No acute pulmonary process. 3. No thoracic aortic dissection or aneurysm. 4. Stable pulmonary nodules within the lungs. RADIA
[2018-04-06 19:24] VITALS: BP 139/95
== END 2018-04-06 19:57 | disposition home or self-care (01) ==
LOC: ED 15:44
DX: R07.89 Other chest pain (principal); R00.0 Tachycardia, unspecified; E03.9 Hypothyroidism, unspecified; E78.00 Pure hypercholesterolemia, unspecified; J44.9 Chronic obstructive pulmonary disease, unspecified
CPT/HCPCS: 36415; 71275; 80053; 83690; 83735; 83880; 84100; 84484; 85025; 93005; 99283; 99284; Q9967

== ENCOUNTER 2018-04-12 11:33 | Emergency (ER) | payer MEDICARE, MEDICAID ==
[2018-04-12] MEDS ORDERED: MORPHINE 10 MG/ML VIAL IVP STA (12:17)
[2018-04-12] MEDS ORDERED: ONDANSETRON 4 MG/2 ML VIAL IVP STA (12:17)
--- NOTE | 2018-04-12 12:18 | ED Physician Documentation ---
PD HPI ABD PAIN - Stated complaint Stated Complaint: R SIDE PX - Chief complaint Chief Complaint: Abd Pain - History obtained from History obtained from: Patient - History of Present Illness Timing - onset: Last night (67-year-old woman with history of total hysterectomy and kidney stones presents with right-sided abdominal pain that started last night. It is very difficult for her to localize, sometimes she is grabbing in her right upper quadrant but when asked her to focus on the source of the pain she points the right lower quadrant. It radiates to the back and is associated with nausea and bloating but no vomiting or changes in bowel movements. She also has not had any urinary complaints. No fevers or chills. She says this is unlike prior renal colic.) Review of Systems Ten Systems: 10 systems reviewed and negative Constitutional: denies: Fever, Chills Cardiac: denies: Chest pain / pressure, Palpitations Respiratory: reports: Dyspnea GI: reports: Abdominal Pain, Nausea. 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 HEENT: Tonsil/Adenoidectomy - Present Medications Home Medications: Ambulatory Orders Medication Instructions Recorded Confirmed Ibuprofen [Advil] 100 mg PO 12/28/17 cefUROXime axetil [Ceftin] 250 mg PO Q12H #10 tablet 12/28/17 Ciprofloxacin HCl [Cipro] 500 mg PO BID #14 tablet 04/12/18 HYDROcod/ACETAM 5/325 [[place] 5/325] 1 - 2 ea PO Q6H PRN #15 tablet 04/12/18 - Allergies Allergies/Adverse Reactions: Allergies Allergy/AdvReac Type Severity Reaction Status Date / Time aspirin Allergy Nausea Verified 12/28/17 10:37 Penicillins Allergy vomiting, Verified 12/28/17 10:37 visual changes - Living Situation Living Situation: reports: With spouse/s.o. - Social History Does the pt smoke?: No Smoking Status: Never smoker Does the pt drink ETOH?: Yes Does the pt have substance abuse?: No - Family History Family history: reports: Non contributory - Immunizations Immunizations are current?: Yes - POLST Patient has POLST: No PD ED PE NORMAL - Vitals Vital signs reviewed: Yes - General General: Alert and oriented X 3, No acute distress - HEENT HEENT: PERRL, EOMI - Neck Neck: Supple, no meningeal sign, No bony TTP - Cardiac Cardiac: RRR, No murmur - Respiratory Respiratory: No respiratory distress, Clear bilaterally - Abdomen Abdomen: Normal bowel sounds, Soft, Other (I examined her several times, she seems most tender in the right upper quadrant but she points to the right lower quadrant as the source of pain. She is morbidly obese.) - Back Back: No CVA TTP, No spinal TTP - Derm Derm: Normal color, Warm and dry - Extremities Extremities: No edema, No calf tenderness / cord - Neuro Neuro: Alert and oriented X 3, Normal speech Results - Vitals Vitals: Vital Signs - 24 hr 04/12/18 04/12/18 04/12/18 11:37 13:26 16:17 Temperature 36.0 C L 36.7 C Heart Rate 84 84 83 Respiratory 18 16 20 Rate Blood Pressure 130/76 132/72 H 125/84 H O2 Saturation 95 92 93 Oxygen O2 Source Room air - Labs Labs: Laboratory Tests 04/12/18 04/12/18 04/12/18 12:24 12:24 12:45 WBC 8.4 RBC 4.54 Hgb 14.3 Hct 41.9 MCV 92.2 MCH 31.5 H MCHC 34.1 RDW 12.9 Plt Count 191 MPV 9.0 Neut # (Auto) 5.8 Lymph # (Auto) 1.4 L [place] # (Auto) 1.0 Eos # (Auto) 0.2 Baso # (Auto) 0.0 Absolute Nucleated RBC 0.01 Nucleated RBC % 0.1 Sodium 138 Potassium 3.9 Chloride 103 Carbon Dioxide 28 Anion Gap 7.0 BUN 17 Creatinine 0.9 Estimated GFR (MDRD) 62 L Glucose 116 H Calcium 9.5 Total Bilirubin 0.6 AST 17 ALT 21 Alkaline Phosphatase 59 Total Protein 7.5 Albumin 4.0 Globulin 3.5 Albumin/Globulin Ratio 1.1 Lipase 31 Urine Color YELLOW Urine Clarity SL. CLOUDY Urine pH 6.5 Ur Specific [place] 1.010 Urine Protein 30 H Urine Glucose (UA) NEGATIVE Urine Ketones NEGATIVE Urine Occult Blood LARGE H Urine Nitrite NEGATIVE Urine Bilirubin NEGATIVE Urine Urobilinogen 0.2 (NORMAL) Ur Leukocyte Esterase SMALL H Urine RBC TNTC H Urine WBC 11-25 H Ur Squamous Epith Cells MANY Squamous H Urine Bacteria Few Ur Microscopic Review INDICATED Urine Culture Comments NOT INDICATED 04/12/18 15:40 WBC RBC Hgb Hct MCV MCH MCHC RDW Plt Count MPV Neut # (Auto) Lymph # (Auto) [place] # (Auto) Eos # (Auto) Baso # (Auto) Absolute Nucleated RBC Nucleated RBC % Sodium Potassium Chloride Carbon Dioxide Anion Gap BUN Creatinine Estimated GFR (MDRD) Glucose Calcium Total Bilirubin AST ALT Alkaline Phosphatase Total Protein Albumin Globulin Albumin/Globulin Ratio Lipase Urine Color YELLOW Urine Clarity CLOUDY Urine pH 6.0 Ur Specific [place] 1.010 Urine Protein 30 H Urine Glucose (UA) NEGATIVE Urine Ketones NEGATIVE Urine Occult Blood LARGE H Urine Nitrite NEGATIVE Urine Bilirubin NEGATIVE Urine Urobilinogen 0.2 (NORMAL) Ur Leukocyte Esterase SMALL H Urine RBC TNTC H Urine WBC >25 H Ur Squamous Epith Cells NONE SEEN Urine Bacteria Few Ur Microscopic Review INDICATED Urine Culture Comments INDICATED - Rads (name of study) CT KUB Radiology: EMP read contemporaneously (Right-sided perinephric stranding and mild hydronephrosis with multiple stones noted bilaterally with a 1.4 cm stone in the right renal pelvis, stable pulmonary nodules and diverticula.) PD MEDICAL DECISION MAKING - ED course ED course: She presents with hard to localize his right-sided abdominal pain, after evaluation it seems likely this is related to the kidney, findings are not typical of renal colic, but likely business center representative of that. She has hydronephrosis. However she does not seem to have an obstructing kidney stone. She is very mild signs of urinary infection, trace leukocyte esterase and few bacteria. This really is not consistent with an infected kidney stone with normal white count no fever. She is certainly not septic. I will put her on Cipro pending the cultures though. - Sepsis Event Vital Signs: Vital Signs - 24 hr 04/12/18 04/12/18 04/12/18 11:37 13:26 16:17 Temperature 36.0 C L 36.7 C Heart Rate 84 84 83 Respiratory 18 16 20 Rate Blood Pressure 130/76 132/72 H 125/84 H O2 Saturation 95 92 93 Oxygen O2 Source Room air Departure - Departure Disposition: 01 Home, Self Care Clinical Impression: Renal colic on right side Condition: Good Record reviewed to determine appropriate education?: Yes Instructions: ED Stone Renal W Colic Prescriptions: Ciprofloxacin HCl [Cipro] 500 mg PO BID #14 tablet HYDROcod/ACETAM 5/325 [[place] 5/325] 1 - 2 ea PO Q6H PRN #15 tablet PRN Reason: Pain Comments: As discussed, the right kidney is inflamed, with large stones in its. Given the findings you will need to follow-up with urologist. The closest urology clinic is in [place], call [phone] for an appointment. Discharge Date/Time: 04/12/18 16:19
[2018-04-12 12:40] LABS: BASOPHILS % (AUTO) 0.4 %; EOSINOPHILS # (AUTO) 0.2 10^3/uL (0.0-0.7); HGB - HEMOGLOBIN 14.3 g/dL (12.0-16.0); LYMPHOCYTES # (AUTO) 1.4 10^3/uL (1.5-3.5); LYMPHOCYTES % (AUTO) 16.1 %; MEAN CORPUSCULAR HEMOGLOBIN 31.5 pg (27.0-31.0); MEAN CORPUSCULAR HGB CONC 34.1 g/dL (32.0-36.0); MEAN CORPUSCULAR VOLUME 92.2 fL (81.0-99.0); MONOCYTES % (AUTO) 12.4 %; NEUTROPHILS # (AUTO) 5.8 10^3/uL (1.5-6.6); NEUTROPHILS % (AUTO) 69.1 %; PLT - PLATELET COUNT 191 10^3/uL (130-450); RED BLOOD COUNT 4.54 10^6/uL (4.20-5.40); RED CELL DISTRIBUTION WIDTH 12.9 % (12.0-15.0); WHITE BLOOD COUNT 8.4 x10^3/uL (4.8-10.8)
[2018-04-12 12:49] LABS: ALBUMIN/GLOBULIN RATIO 1.1 (1.0-2.2); BILIRUBIN,TOTAL 0.6 mg/dL (0.2-1.0); CALCIUM 9.5 mg/dL (8.5-10.3); CREATININE 0.9 mg/dL (0.4-1.0); TOTAL PROTEIN 7.5 g/dL (6.7-8.2)
[2018-04-12 13:01] LABS: BILIRUBIN,URINE NEGATIVE (NEGATIVE); GLUCOSE, URINE (UA) NEGATIVE (NEGATIVE); KETONES,URINE (UA) NEGATIVE (NEGATIVE); LEUKOCYTE ESTERASE, URINE SMALL (NEGATIVE); NITRITE,URINE NEGATIVE (NEGATIVE); OCCULT BLOOD,URINE LARGE (NEGATIVE); PH,URINE 6.5 PH (5.0-7.5); PROTEIN,URINE 30 mg/dL (NEGATIVE); UROBILINOGEN,URINE 0.2 (NORMAL) E.U./dL (NORMAL)
[2018-04-12 13:03] LABS: CLARITY,URINE SL. CLOUDY (CLEAR)
[2018-04-12 13:16] LABS: RBC,URINE TNTC /HPF (0-5); SQUAMOUS EPITHELIAL CELL,UR MANY Squamous (<= Few)
[2018-04-12 13:17] LABS: BACTERIA,URINE Few /HPF (None Seen)
--- NOTE | 2018-04-12 14:43 | CT Report ---
Procedure Date: 04/12/2018 Accession Number: [id number] / [id number] Procedure: CT - Abdomen/Pelvis W/O CPT Code: FULL RESULT: EXAM: CT ABDOMEN AND PELVIS EXAM DATE: 04/12/2018 02:15 PM. CLINICAL HISTORY: Right lower quadrant pain. COMPARISONS: Previous exam of 06/18/2017. TECHNIQUE: Routine helical CT imaging was performed through the abdomen and pelvis. IV contrast: None. Enteric contrast: No. Reconstructions: Coronal and sagittal. In accordance with CT protocol optimization, one or more of the following dose reduction techniques were utilized for this exam: automated exposure control, adjustment of mA and/or KV based on patient size, or use of iterative reconstructive technique. FINDINGS: Lung Bases: Multiple noncalcified pulmonary nodules present, similar to exam of 04/06/2018. Liver: Normal. No masses. Gallbladder/Bile Ducts: Unremarkable. Spleen: Normal. Pancreas: Normal. Adrenal Glands: Right adrenal gland is unremarkable. Stable left adrenal gland adenoma measuring 1.6 cm. Kidneys: Stable appearance of the left kidney, with nonobstructing stones seen in the renal pelvis. There has been interval development of perinephric stranding adjacent to the right kidney, with dominant stone seen in the right renal pelvis measuring up to 1.4 cm. No evidence of distal ureteric stones seen. Peritoneal Cavity/Bowel: Scattered diverticulosis noted without evidence of acute diverticulitis. No free fluid, free air or adenopathy. No masses or acute inflammatory process. Appendix not conclusively seen. Pelvic Organs: Patient is status post NAYELI/BSO. Urinary bladder is unremarkable. Vasculature: No aneurysms or other significant abnormality. Bones: Mild bony degenerative changes present. Other: None. IMPRESSION: 1. Interval development of right-sided perinephric stranding and mild hydronephrosis, with multiple stones noted bilaterally, largest measuring up to 1.4 cm and the right renal pelvis. No evidence of ureteric or urinary bladder stones noted. 2. Stable multiple pulmonary nodules, compared to CT scan from 04/06/2018. 3. Stable left adrenal adenoma. 4. Scattered diverticulosis without evidence of acute diverticulitis. 5. Mild bony degenerative changes noted. RADIA
[2018-04-12 15:48] LABS: BILIRUBIN,URINE NEGATIVE (NEGATIVE); GLUCOSE, URINE (UA) NEGATIVE (NEGATIVE); KETONES,URINE (UA) NEGATIVE (NEGATIVE); LEUKOCYTE ESTERASE, URINE SMALL (NEGATIVE); NITRITE,URINE NEGATIVE (NEGATIVE); OCCULT BLOOD,URINE LARGE (NEGATIVE); PROTEIN,URINE 30 mg/dL (NEGATIVE); UROBILINOGEN,URINE 0.2 (NORMAL) E.U./dL (NORMAL)
[2018-04-12 15:50] LABS: CLARITY,URINE CLOUDY (CLEAR)
[2018-04-12 16:01] LABS: BACTERIA,URINE Few /HPF (None Seen); RBC,URINE TNTC /HPF (0-5); SQUAMOUS EPITHELIAL CELL,UR NONE SEEN (<= Few)
[2018-04-12] MEDS ORDERED: CIPROFLOXACIN 250 MG TABLET PO STA (16:08)
[2018-04-12 16:19] VITALS: BP 125/84
== END 2018-04-12 16:19 | disposition home or self-care (01) ==
LOC: ED 11:33
DX: N23 Unspecified renal colic (principal); N13.30 Unspecified hydronephrosis; N20.0 Calculus of kidney; E66.01 Morbid (severe) obesity due to excess calories; Z87.442 Personal history of urinary calculi
CPT/HCPCS: 36415; 74176; 80053; 81001; 83690; 85025; 87086; 96374; 96375; 99283; A9270; 81003

== ENCOUNTER 2018-04-27 12:59 | Outpatient (CLI) | payer MEDICARE, MEDICAID ==
[2018-04-27 19:24] LABS: HB2 TOTAL 16.6 g/dL; HEMOGLOBIN A1C 0.67 g/dL; HEMOGLOBIN A1C % 5.8 % (4.6-6.2)
[2018-04-27 20:00] LABS: ALBUMIN 3.7 g/dL (3.2-5.5); ALBUMIN/GLOBULIN RATIO 0.9 (1.0-2.2); ALKALINE PHOSPHATASE 52 IU/L (42-121); ALT ALANINE AMINOTRANSFERASE 22 IU/L (10-60); AST ASPARTATE AMINOTRANSFERASE 20 IU/L (10-42); BUN - BLOOD UREA NITROGEN 14 mg/dL (6-20); CALCIUM 9.7 mg/dL (8.5-10.3); CARBON DIOXIDE - CO2 30 mmol/L (21-32); CHLORIDE 103 mmol/L (101-111); CHOL/HDL RATIO 4.7 (<4.4); CHOLESTEROL 264 mg/dL; CREATININE 0.7 mg/dL (0.4-1.0); GFR - MDRD 83 (>89); GLUCOSE 124 mg/dL (70-100); HDL CHOLESTEROL 56 mg/dL; LDL CHOLESTEROL,CALCULATED 159 mg/dL; LDL/HDL RATIO 2.8 (<4.4); SODIUM 140 mmol/L (135-145); TOTAL PROTEIN 7.7 g/dL (6.7-8.2); VLDL CHOLESTEROL 49 mg/dL
== END 2018-04-27 13:00 | disposition home or self-care (01) ==
LOC: LAB.N 12:59
PROVIDERS: ATTEND Family Medicine
DX: R73.01 Impaired fasting glucose (principal); E78.5 Hyperlipidemia, unspecified
CPT/HCPCS: 36415; 80053; 80061; 83036; 83721

== ENCOUNTER 2018-05-15 11:51 | Emergency (ER) | payer MEDICARE, MEDICAID ==
[2018-05-15 12:28] VITALS: BP 138/91
[2018-05-15] MEDS ORDERED: MINERAL OIL ENEMA 133 ML BOTTLE RC STA ×2 (13:33→14:59)
[2018-05-15] MEDS ORDERED: KETOROLAC 60 MG/2 ML VIAL IVP STA (13:33)
[2018-05-15] MEDS ORDERED: ACETAMINOPHEN 325 MG TABLET PO STA (13:34)
[2018-05-15 13:44] LABS: BASOPHILS % (AUTO) 0.2 %; EOSINOPHILS # (AUTO) 0.1 10^3/uL (0.0-0.7); EOSINOPHILS % (AUTO) 1.7 %; HGB - HEMOGLOBIN 15.9 g/dL (12.0-16.0); LYMPHOCYTES # (AUTO) 1.2 10^3/uL (1.5-3.5); LYMPHOCYTES % (AUTO) 17.7 %; MEAN CORPUSCULAR HEMOGLOBIN 31.3 pg (27.0-31.0); MEAN CORPUSCULAR HGB CONC 33.6 g/dL (32.0-36.0); MEAN CORPUSCULAR VOLUME 93.1 fL (81.0-99.0); MEAN PLATELET VOLUME 9.4 fL (7.9-10.8); MONOCYTES # (AUTO) 0.7 10^3/uL (0.0-1.0); MONOCYTES % (AUTO) 10.6 %; NEUTROPHILS # (AUTO) 4.5 10^3/uL (1.5-6.6); NEUTROPHILS % (AUTO) 69.8 %; PLT - PLATELET COUNT 237 10^3/uL (130-450); RED BLOOD COUNT 5.08 10^6/uL (4.20-5.40); RED CELL DISTRIBUTION WIDTH 13.8 % (12.0-15.0); WHITE BLOOD COUNT 6.5 x10^3/uL (4.8-10.8)
[2018-05-15 13:51] LABS: ALBUMIN 4.5 g/dL (3.2-5.5); ALBUMIN/GLOBULIN RATIO 1.2 (1.0-2.2); CALCIUM 10.2 mg/dL (8.5-10.3); CREATININE 0.7 mg/dL (0.4-1.0); TOTAL PROTEIN 8.3 g/dL (6.7-8.2)
[2018-05-15 15:28] LABS: GLUCOSE, URINE (UA) NEGATIVE (NEGATIVE); KETONES,URINE (UA) TRACE mg/dL (NEGATIVE); LEUKOCYTE ESTERASE, URINE MODERATE (NEGATIVE); NITRITE,URINE NEGATIVE (NEGATIVE); OCCULT BLOOD,URINE LARGE (NEGATIVE); PH,URINE 6.5 PH (5.0-7.5); PROTEIN,URINE >=300 mg/dL (NEGATIVE); UROBILINOGEN,URINE 0.2 (NORMAL) E.U./dL (NORMAL)
[2018-05-15 15:31] LABS: CLARITY,URINE CLOUDY (CLEAR)
[2018-05-15 15:32] LABS: BILIRUBIN,URINE NEGATIVE (NEGATIVE); ICTOTEST,URINE NEGATIVE
[2018-05-15 16:08] LABS: BACTERIA,URINE Rare /HPF (None Seen); RBC,URINE TNTC /HPF (0-5); SQUAMOUS EPITHELIAL CELL,UR FEW Squamous (<= Few)
--- NOTE | 2018-05-15 17:01 | ED Physician Documentation ---
PD HPI ABD PAIN - Stated complaint Stated Complaint: CONSTIPATION/SHAKING/POST OP - Chief complaint Chief Complaint: Abd Pain - History obtained from History obtained from: Patient - History of Present Illness Timing - onset: How many days ago (5) Timing - duration: Days (5) Timing - details: Gradual onset, Still present (she had cystoscopy and stent placed 5 days ago. Had had BM the day before that but none sicne. Some pain med use at the time of recovery room and the few days after. Stopped pain meds and is taking stool softeners to try to have BM. Having feeling of rectal fullness/ pain with pushing for BM. No general abd pain nor vomiting. Having blood in urine.) Quality: Cramping, Aching (lower abd and rectal area. Not generally painful.) Location: Suprapubic, Other (lower) Radiation: No: Lower back Associated symptoms: Hematuria. No: Fever, Nausea, Vomiting, Dysuria Recently seen: Surgery (cystoscopy with stent placement and attempt to get to stone, but not able to get it out. Will get lithopripsy in about 2 weeks.) Review of Systems Constitutional: denies: Fever, Chills Nose: denies: Rhinorrhea / runny nose, Congestion Throat: denies: Sore throat Cardiac: denies: Chest pain / pressure Respiratory: denies: Cough GI: reports: Abdominal Pain, Constipation. denies: Nausea, Vomiting, Diarrhea, Bloody / black stool : reports: Hematuria. 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 HEENT: Tonsil/Adenoidectomy - Present Medications Home Medications: Ambulatory Orders Medication Instructions Recorded Confirmed Ibuprofen [Advil] 100 mg PO 12/28/17 cefUROXime axetil [Ceftin] 250 mg PO Q12H #10 tablet 12/28/17 Ciprofloxacin HCl [Cipro] 500 mg PO BID #14 tablet 04/12/18 HYDROcod/ACETAM 5/325 [[place] 5/325] 1 - 2 ea PO Q6H PRN #15 tablet 04/12/18 Sulfamethox/Trimeth 800/160 1 each PO BID #14 tablet 05/15/18 [Bactrim Ds 800/160] - Allergies Allergies/Adverse Reactions: Allergies Allergy/AdvReac Type Severity Reaction Status Date / Time aspirin Allergy Nausea Verified 12/28/17 10:37 Penicillins Allergy vomiting, Verified 12/28/17 10:37 visual changes - Social History Does the pt smoke?: No Smoking Status: Current every day smoker Does the pt drink ETOH?: Yes Does the pt have substance abuse?: No - Immunizations Immunizations are current?: Yes - POLST Patient has POLST: No PD ED PE NORMAL - Vitals Vital signs reviewed: Yes - General General: Alert and oriented X 3, No acute distress, Well developed/nourished - HEENT HEENT: Pharynx benign - Neck Neck: Supple, no meningeal sign, No adenopathy - Cardiac Cardiac: RRR, No murmur - Respiratory Respiratory: Clear bilaterally - Abdomen Abdomen: Soft, Non tender, Non distended. No: Normal bowel sounds (diminished) - Female Female : Deferred - Rectal Rectal: Other (baseball sized firm stool ball at rectal opening, digitally broken up by me. Guiac negative. ) - Back Back: No CVA TTP - Derm Derm: Normal color, Warm and dry, No rash - Neuro Neuro: Alert and oriented X 3, No motor deficit, Normal speech Results - Vitals Vitals: Oxygen O2 Source Room air - Labs Labs: Microbiology 05/15/18 15:10 Urine Culture - Final Urine,Clean Catch >100,000 COLONIES/ML Polymicrobial growth including potential pathogens. This is suggestive of skin or other contamination. Laboratory Tests 05/15/18 05/15/18 05/15/18 12:40 12:40 15:10 WBC 6.5 RBC 5.08 Hgb 15.9 Hct 47.3 H MCV 93.1 MCH 31.3 H MCHC 33.6 RDW 13.8 Plt Count 237 MPV 9.4 Neut # (Auto) 4.5 Lymph # (Auto) 1.2 L [place] # (Auto) 0.7 Eos # (Auto) 0.1 Baso # (Auto) 0.0 Absolute Nucleated RBC 0.00 Nucleated RBC % 0.1 Sodium 141 Potassium 3.8 Chloride 103 Carbon Dioxide 26 Anion Gap 12.0 BUN 13 Creatinine 0.7 Estimated GFR (MDRD) 83 L Glucose 142 H Calcium 10.2 Total Bilirubin 1.0 AST 22 ALT 23 Alkaline Phosphatase 52 Total Protein 8.3 H Albumin 4.5 Globulin 3.8 Albumin/Globulin Ratio 1.2 Lipase 29 Urine Color LT RED Urine Clarity CLOUDY Urine pH 6.5 Ur Specific [place] 1.025 Urine Protein >=300 H Urine Glucose (UA) NEGATIVE Urine Ketones TRACE Urine Occult Blood LARGE H Urine Nitrite NEGATIVE Urine Bilirubin NEGATIVE Urine Urobilinogen 0.2 (NORMAL) Ur Leukocyte Esterase MODERATE H Urine RBC TNTC H Urine WBC 11-25 H Ur Squamous Epith Cells FEW Squamous Urine Bacteria Rare Ur Microscopic Review INDICATED Urine Culture Comments INDICATED PD MEDICAL DECISION MAKING - ED course Complexity details: reviewed results (some WBCs in urine (RBCs as expected). Does not seem septic. Main issue was the constipation. She had stool impaction that was broken up digitally and then sequentially better stool out with enemas. Feeling improved at time of discharge.), re-evaluated patient (having some stool out with enemas and then felt blocked again. Repeat digital exam found another smaller ball of stool, also digitially broken up and repeat enema getting lots of stool out per patient.), considered differential, d/w patient - Sepsis Event Vital Signs: Oxygen O2 Source Room air Departure - Departure Disposition: 01 Home, Self Care Clinical Impression: Lower abdominal pain, Status post placement of ureteral stent Constipation Qualifiers: Constipation type: drug induced constipation Qualified Code(s): K59.03 - Drug induced constipation UTI (urinary tract infection) Qualifiers: Urinary tract infection type: site unspecified Hematuria presence: with hematuria Qualified Code(s): N39.0 - Urinary tract infection, site not specified Condition: Stable Record reviewed to determine appropriate education?: Yes Instructions: ED Constipation, ED UTI Cystitis Female Follow-Up: Renny Dumont MD [Primary Care Provider] - Chapis Jeffrey MD [Physician No Access] - Prescriptions: Sulfamethox/Trimeth 800/160 [Bactrim Ds 800/160] 1 each PO BID #14 tablet Comments: There were some white cells and a few bacteria in your urine test suggestive of early infection. Take Bactrim twice daily for a week for that. Drink lots of fluids and continue the stool softeners for the constipation. I think now that it is starting to have some good stool output it will continue. Naproxen or ibuprofen is okay for pains. Add Tylenol if needed. Follow-up with the urologist as planned. Discharge Date/Time: 05/15/18 18:37
[2018-05-15] MEDS ORDERED: SULFAMETH/TRIMETH DS 800/160 MG TABLET PO STA (17:02)
[2018-05-15] MEDS ORDERED: SALINE ENEMA 133 ML BOTTLE RC STA (17:42)
== END 2018-05-15 18:37 | disposition home or self-care (01) ==
LOC: ED 11:51
DX: K59.03 Drug induced constipation (principal); N39.0 Urinary tract infection, site not specified; N20.0 Calculus of kidney; Z96.0 Presence of urogenital implants; F17.200 Nicotine dependence, unspecified, uncomplicated
CPT/HCPCS: 36415; 80053; 81001; 83690; 85025; 87086; 96374; 99283; A9270; 81003

== ENCOUNTER 2019-04-02 11:14 | Emergency (ER) | payer MEDICARE, MEDICAID ==
--- NOTE | 2019-04-02 12:57 | ED Physician Documentation ---
PD HPI UPPER EXT INJURY - Stated complaint Stated Complaint: R SHOULDER INJ - Chief complaint Chief Complaint: Ext Problem - History obtained from History obtained from: Patient - History of Present Illness Location: Right (Slip and fall at home on the stairs 2 weeks ago with persistent upper humeral and right elbow pain that is limiting her function. Its not improving, but not getting worse either today. The change that necessitated a visit today was that she was in too much pain to write a check but she was able to drive here.) Review of Systems Constitutional: denies: Fever, Chills Cardiac: denies: Chest pain / pressure, Palpitations Respiratory: denies: Dyspnea, Cough GI: denies: Abdominal Pain PD PAST MEDICAL HISTORY - Past Medical History Cardiovascular: High cholesterol Respiratory: COPD Neuro: None Endocrine/Autoimmune: HyPOthyroidism GI: None SHANK SANDER: None : Kidney stones HEENT: Other Psych: None Musculoskeletal: Osteoarthritis, Chronic back pain Derm: Eczema, Psoriasis - Past Surgical History Past Surgical History: Yes /SHANK SANDER: Hysterectomy, Oophrectomy, Breast reduction HEENT: Tonsil/Adenoidectomy - Present Medications Home Medications: Ambulatory Orders Medication Instructions Recorded Confirmed Ibuprofen [Advil] 100 mg PO 12/28/17 Hydrocodone/Acetaminophen 1 - 2 each PO Q6H PRN #14 tablet 04/02/19 [Hydrocodon-Acetaminophen 5-325] tiZANidine [Zanaflex] 04/02/19 - Allergies Allergies/Adverse Reactions: Allergies Allergy/AdvReac Type Severity Reaction Status Date / Time aspirin Allergy Nausea Verified 04/02/19 11:20 Penicillins Allergy vomiting, Verified 12/28/17 10:37 visual changes - Social History Does the pt smoke?: No Smoking Status: Never smoker Does the pt drink ETOH?: Yes Does the pt have substance abuse?: No - Immunizations Immunizations are current?: Yes - POLST Patient has POLST: No PD ED PE NORMAL - Vitals Vital signs reviewed: Yes - General General: Alert and oriented X 3, No acute distress - Neck Neck: Other (There is no cervical spine bony tenderness. Mild tenderness of the right sternocleidomastoid) - Cardiac Cardiac: Other (No rib tenderness) - Abdomen Abdomen: Non tender - Extremities Extremities: Other (She is tender to the upper humerus and the supracondylar area of the right elbow. She is unable to abduct more than about 30 degrees actively. Normal neurovascular function in the hand.) - Neuro Neuro: Alert and oriented X 3, Normal speech Results - Vitals Vitals: Vital Signs - 24 hr 04/02/19 11:16 Temperature 36.1 C L Heart Rate 120 H Respiratory 20 Rate Blood Pressure 144/97 H O2 Saturation 96 Oxygen O2 Source Room air - Rads (name of study) XR R shoulder/elbow Radiology: EMP read contemporaneously (NAD) PD MEDICAL DECISION MAKING - ED course ED course: 68-year-old woman with injuries to the right arm 2 weeks after a fall. No clinical evidence of cervical spine or rib injury. X-rays negative for acute fracture. Rotator cuff pathology is a possibility, but unable to test due to lack of range of motion to get her into the necessary clinical positions to test. Placed in a sling and advised on exercises to do to maintain range of motion and prevent a frozen shoulder. Referred to orthopedics. Departure - Departure Disposition: 01 Home, Self Care Clinical Impression: Shoulder injury Qualifiers: Encounter type: initial encounter Laterality: right Qualified Code(s): S49.91XA - Unspecified injury of right shoulder and upper arm, initial encounter Contusion of elbow, right Qualifiers: Encounter type: initial encounter Qualified Code(s): S50.01XA - Contusion of right elbow, initial encounter Condition: Good Record reviewed to determine appropriate education?: Yes Health Concerns: Injuries to the right arm after a fall 2 weeks ago Plan of Treatment: X-rays done and negative for fracture. Rotator cuff issue is a possibility. Referral to orthopedics and pain control. Return if worse. Do not drink or drive while taking narcotic pain medication. Note that many narcotic pain relievers also contain Tylenol/acetaminophen. Please ensure that your total dose of acetaminophen from all sources does not exceed 3 g (3000 mg) per day. You may get constipated while on this medication. Take a stool softener such as Colace twice a day while you are on it. Also add an [id number]-[id number] laxative such as senna or MiraLAX on any day that you do not have a bowel movement. If you received a narcotic pain medication or sedative while in the emergency department, do not drive for the next 24 hours. Care Goals: pain control Assessment: as above Instructions: ED Contusion Shoulder Follow-Up: [facility] [Provider Group] Prescriptions: Hydrocodone/Acetaminophen [Hydrocodon-Acetaminophen 5-325] 1 - 2 each PO Q6H PRN #14 tablet PRN Reason: pain
[2019-04-02] MEDS: IBUPROFEN 800 MG TABLET PO STA ×2 (12:59→13:00)
[2019-04-02] MEDS: ACETAMINOPHEN 325 MG TABLET PO STA ×2 (12:59→13:00)
--- NOTE | 2019-04-02 13:49 | XRAY Report ---
Reason: shoulder/elbow inj Procedure Date: 04/02/2019 Accession Number: [id number] / [id number] Procedure: XR - Shoulder 3 View RT CPT Code: FULL RESULT: EXAM: RIGHT SHOULDER RADIOGRAPHY EXAM DATE: 04/02/2019 01:28 PM. CLINICAL HISTORY: Shoulder/elbow inj. Persistent pain after injury COMPARISON: None. TECHNIQUE: 4 views. FINDINGS: Bones: Normal. No fracture or bone lesion. Joints: AC joint hypertrophy. Glenohumeral osteophyte without joint space narrowing. Soft tissues: The visualized hemithorax is unremarkable. No soft tissue swelling. IMPRESSION: Mild DJD RADIA
--- NOTE | 2019-04-02 13:56 | XRAY Report ---
Reason: shoulder/elbow inj Procedure Date: 04/02/2019 Accession Number: [id number] / [id number] Procedure: XR - Elbow 3 View RT CPT Code: FULL RESULT: EXAM: RIGHT ELBOW RADIOGRAPHY EXAM DATE: 04/02/2019 01:36 PM. CLINICAL HISTORY: Right elbow injury. COMPARISON: None available. TECHNIQUE: 3 views. FINDINGS: Bones: No acute fracture or dislocation. There is some mild ossific irregularity at the lateral epicondyle of the distal humerus, which is likely chronic. Joints: No joint effusion visualized, although no true lateral image was obtained. Joint spaces appear preserved. Soft Tissues: Unremarkable. IMPRESSION: No acute fracture or dislocation visualized. RADIA
[2019-04-02 14:26] VITALS: BP 129/88
== END 2019-04-02 14:28 | disposition home or self-care (01) ==
LOC: ED 11:14
DX: S50.01XA Contusion of right elbow, initial encounter (principal); S49.91XA Unspecified injury of right shoulder and upper arm, initial encounter; W10.9XXA Fall (on) (from) unspecified stairs and steps, initial encounter; Y92.009 Unspecified place in unspecified non-institutional (private) residence as the place of occurrence of the external cause
CPT/HCPCS: 73030; 73080; 99283; A9270

== ENCOUNTER 2019-07-29 13:00 | Outpatient (CLI) | payer MEDICARE, MEDICAID ==
[2019-07-29 13:36] LABS: BASOPHILS % (AUTO) 0.5 %; EOSINOPHILS # (AUTO) 0.1 10^3/uL (0.0-0.7); EOSINOPHILS % (AUTO) 2.1 %; HGB - HEMOGLOBIN 14.6 g/dL (12.0-16.0); LYMPHOCYTES # (AUTO) 1.3 10^3/uL (1.5-3.5); LYMPHOCYTES % (AUTO) 20.8 %; MEAN CORPUSCULAR HEMOGLOBIN 31.4 pg (27.0-31.0); MEAN CORPUSCULAR HGB CONC 33.4 g/dL (32.0-36.0); MEAN PLATELET VOLUME 10.4 fL (7.9-10.8); MONOCYTES # (AUTO) 0.7 10^3/uL (0.0-1.0); MONOCYTES % (AUTO) 11.4 %; PLT - PLATELET COUNT 253 10^3/uL (130-450); RED BLOOD COUNT 4.65 10^6/uL (4.20-5.40); RED CELL DISTRIBUTION WIDTH 11.9 % (12.0-15.0); WHITE BLOOD COUNT 6.1 x10^3/uL (4.8-10.8)
[2019-07-29 13:43] LABS: ALBUMIN 4.5 g/dL (3.2-5.5); ALBUMIN/GLOBULIN RATIO 1.3 (1.0-2.2); BILIRUBIN,TOTAL 0.9 mg/dL (0.2-1.0); CALCIUM 9.9 mg/dL (8.5-10.3); CREATININE 0.8 mg/dL (0.4-1.0)
[2019-07-29] MEDS ORDERED: IOVERSOL 320 100 ML VIAL IVP ONE ×2 (13:46→13:50)
[2019-07-29 14:26] LABS: CA 125 8.6 U/mL (0.0-35.0)
[2019-07-29 15:17] LABS: CA 15-3 6.7 U/mL (0.0-31.3)
--- NOTE | 2019-07-29 15:28 | CT Report ---
Reason: MULTIPLE LUNG NODULES Procedure Date: 07/29/2019 Accession Number: [id number] / [id number] Procedure: CT - CHEST W CPT Code: Final Report FULL RESULT: EXAM: CT CHEST EXAM DATE: 07/29/2019 01:48 PM. CLINICAL HISTORY: MULTIPLE LUNG NODULES. COMPARISONS: CHEST ANGIO 04/06/2018 5:26 PM. TECHNIQUE: Routine helical CT imaging was performed through the chest. IV contrast: None. Reconstructions: Coronal and sagittal. In accordance with CT protocol optimization, one or more of the following dose reduction techniques were utilized for this exam: automated exposure control, adjustment of mA and/or KV based on patient size, or use of iterative reconstructive technique. FINDINGS: Lungs/Pleura: Lung nodules: Right upper lobe, 3 mm, image 106 of series 4, unchanged. Middle lobe, 7 mm, image 2 of 6 of series 4, unchanged. Right lower lobe, 4 mm, image 218 of series 4, unchanged. Left lower lobe, 3 mm, image 249 of series 4, unchanged. Left lower lobe, 5 mm, image 240 series 4, unchanged. Right upper lobe, 13 x 10 mm, image 145 series 4, unchanged. Multiple other nodules are noted without significant change. There is no infiltrate, pleural effusion or pneumothorax seen. Mediastinum: No mediastinal mass is identified. There is [place] since of the aorta. Bones: There are degenerative changes of the thoracic spine. Visualized Abdomen: The visualized upper abdominal organs are without evidence of an enhancing mass. IMPRESSION: Multiple stable bilateral pulmonary nodules. RADIA
[2019-07-30 07:26] LABS: CA 19-9 <3 U/mL (<34); CA 27.29 14 U/mL (<38)
== END 2019-07-29 13:01 | disposition home or self-care (01) ==
LOC: DI 13:00
PROVIDERS: ATTEND Internal Medicine Hematology & Oncology
DX: R91.8 Other nonspecific abnormal finding of lung field (principal)
CPT/HCPCS: 36415; 71260; 80053; 82378; 83615; 85025; 86300; 86301; 86304; Q9967

== ENCOUNTER 2019-08-05 13:16 | Outpatient (CLI) | payer MEDICARE, MEDICAID ==
[~2019-08-05 13:16] MED LIST: ALBUTEROL NEB 2.5 MG/3 ML INH SCH
== END 2019-08-05 13:17 | disposition home or self-care (01) ==
LOC: RT 13:16
PROVIDERS: ATTEND Thoracic Surgery (Cardiothoracic Vascular Surgery)
DX: R91.1 Solitary pulmonary nodule (principal)
CPT/HCPCS: 94010; 94727; 94729

== ENCOUNTER 2019-11-10 01:49 | Emergency (ER) | payer MEDICARE, MEDICAID ==
[2019-11-10] MEDS ORDERED: ALBUTEROL NEB 2.5 MG/3 ML INH STA (02:04)
--- NOTE | 2019-11-10 03:40 | ED Physician Documentation ---
PD HPI DYSPNEA - Stated complaint Stated Complaint: DIFF BREATHING - Chief complaint Chief Complaint: Resp - History obtained from History obtained from: Patient - History of Present Illness Timing - onset: How many hours ago (2) Timing - onset during: Light activity Timing - details: Abrupt onset Pain level now: 0 Inciting event(s): Other (patient feels Strongly that her symptoms are due to exposure to smoke; specifically, she states that her symptoms started when he son was smoking marijuana in the house tonight) Associated symptoms: Cough, Wheezing. No: Fever, Hemoptysis, Bilateral edema, Unilateral edema (asthma) Similar symptoms before: Diagnosis (S[place]ia) Recently seen: Not recently seen Review of Systems Constitutional: reports: Reviewed and negative Cardiac: reports: Reviewed and negative Respiratory: reports: Dyspnea, Cough, Wheezing, Reviewed and negative. 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: None : Kidney stones HEENT: Other Psych: None Musculoskeletal: Osteoarthritis, Chronic back pain Derm: Eczema, Psoriasis - Past Surgical History Past Surgical History: Yes /LOCKSTITCHER: Hysterectomy, Oophrectomy, Breast reduction HEENT: Tonsil/Adenoidectomy - Present Medications Home Medications: Ambulatory Orders Medication Instructions Recorded Confirmed Ibuprofen [Advil] 100 mg PO 12/28/17 Hydrocodone/Acetaminophen 1 - 2 each PO Q6H PRN #14 tablet 04/02/19 [Hydrocodon-Acetaminophen 5-325] tiZANidine [Zanaflex] 04/02/19 Albuterol Sulf [Ventolin Hfa 1 - 2 puffs INH Q4HR PRN #1 inhaler 11/10/19 Inhaler] predniSONE [Prednisone] 40 mg PO DAILY 3 Days #6 tablet 11/10/19 - Allergies Allergies/Adverse Reactions: Allergies Allergy/AdvReac Type Severity Reaction Status Date / Time aspirin Allergy Nausea Verified 04/02/19 11:20 Penicillins Allergy vomiting, Verified 12/28/17 10:37 visual changes - Social History Does the pt smoke?: No Smoking Status: Never smoker Does the pt drink ETOH?: Yes Does the pt have substance abuse?: No - Immunizations Immunizations are current?: Yes - POLST Patient has POLST: No PD ED PE NORMAL - Vitals Vital signs reviewed: Yes - General General: Alert and oriented X 3, No acute distress, Well developed/nourished - Neck Neck: Supple, no meningeal sign - Cardiac Cardiac: RRR, No murmur, No gallop, No rub - Respiratory Respiratory: No respiratory distress, Clear bilaterally Results - Vitals Vitals: Oxygen O2 Source Room air PD MEDICAL DECISION MAKING - ED course Complexity details: re-evaluated patient, considered differential, d/w patient Departure - Departure Disposition: 01 Home, Self Care Clinical Impression: Dyspnea Condition: Good Instructions: ED Dyspnea Shortness of Breath Follow-Up: Roseline Rogers MD [Primary Care Provider] - Prescriptions: Albuterol Sulf [Ventolin Hfa Inhaler] 1 - 2 puffs INH Q4HR PRN #1 inhaler PRN Reason: Shortness Of Air/Wheezing predniSONE [Prednisone] 40 mg PO DAILY 3 Days #6 tablet Comments: Start the steroid (prednisone) only if the inhaler alone fails to control your symptoms (difficulty breathing, wheezing) Discharge Date/Time: 11/10/19 04:04
[2019-11-10 04:04] VITALS: BP 121/69
== END 2019-11-10 04:04 | disposition home or self-care (01) ==
LOC: ED 01:49
DX: J44.9 Chronic obstructive pulmonary disease, unspecified (principal)
CPT/HCPCS: 94640; 99283

== ENCOUNTER 2020-02-29 04:59 | Inpatient (IN) | payer MEDICARE, MEDICAID ==
[2020-02-29 05:15] LABS: BASOPHILS % (AUTO) 0.3 %; EOSINOPHILS # (AUTO) 0.2 10^3/uL (0.0-0.7); EOSINOPHILS % (AUTO) 1.9 %; HGB - HEMOGLOBIN 14.2 g/dL (12.0-16.0); LYMPHOCYTES # (AUTO) 1.4 10^3/uL (1.5-3.5); LYMPHOCYTES % (AUTO) 13.9 %; MEAN CORPUSCULAR HGB CONC 33.3 g/dL (32.0-36.0); MEAN CORPUSCULAR VOLUME 93.2 fL (81.0-99.0); MEAN PLATELET VOLUME 10.2 fL (7.9-10.8); MONOCYTES # (AUTO) 1.1 10^3/uL (0.0-1.0); MONOCYTES % (AUTO) 10.9 %; NEUTROPHILS # (AUTO) 7.5 10^3/uL (1.5-6.6); NEUTROPHILS % (AUTO) 72.7 %; PLT - PLATELET COUNT 242 10^3/uL (130-450); RED BLOOD COUNT 4.58 10^6/uL (4.20-5.40); RED CELL DISTRIBUTION WIDTH 12.6 % (12.0-15.0); WHITE BLOOD COUNT 10.3 x10^3/uL (4.8-10.8)
[2020-02-29] MEDS ORDERED: MORPHINE 2 MG/ML CARPUJECT IVP STA (05:37)
[2020-02-29 05:47] LABS: ALBUMIN 4.3 g/dL (3.2-5.5); ALBUMIN/GLOBULIN RATIO 1.2 (1.0-2.2); ALKALINE PHOSPHATASE 62 IU/L (42-121); ALT ALANINE AMINOTRANSFERASE 124 IU/L (10-60); AST ASPARTATE AMINOTRANSFERASE 196 IU/L (10-42); BILIRUBIN,TOTAL 1.3 mg/dL (0.2-1.0); BUN - BLOOD UREA NITROGEN 17 mg/dL (6-20); CALCIUM 10.3 mg/dL (8.5-10.3); CARBON DIOXIDE - CO2 26 mmol/L (21-32); CHLORIDE 104 mmol/L (101-111); CREATININE 0.8 mg/dL (0.4-1.0); GLUCOSE 151 mg/dL (70-100); LIPASE > 4800 U/L (22-51); SODIUM 140 mmol/L (135-145); TOTAL PROTEIN 7.9 g/dL (6.7-8.2)
[2020-02-29 05:51] LABS: GLUCOSE, URINE (UA) NEGATIVE (NEGATIVE); KETONES,URINE (UA) NEGATIVE (NEGATIVE); LEUKOCYTE ESTERASE, URINE TRACE (NEGATIVE); NITRITE,URINE NEGATIVE (NEGATIVE); OCCULT BLOOD,URINE LARGE (NEGATIVE); PROTEIN,URINE NEGATIVE (NEGATIVE); UROBILINOGEN,URINE 0.2 (NORMAL) E.U./dL (NORMAL)
[2020-02-29 05:52] LABS: BILIRUBIN,URINE NEGATIVE (NEGATIVE); CLARITY,URINE CLEAR (CLEAR); ICTOTEST,URINE NEGATIVE
[2020-02-29 05:57] LABS: BACTERIA,URINE Rare /HPF (None Seen); SQUAMOUS EPITHELIAL CELL,UR MOD Squamous (<= Few)
[2020-02-29] MEDS ORDERED: HYDROmorphone 1 MG/ML CARPUJECT IVP STA ×2 (06:08→07:51)
[2020-02-29] MEDS ORDERED: KETOROLAC 30 MG/ML VIAL IVP STA (06:08)
--- NOTE | 2020-02-29 06:28 | ED Physician Documentation ---
History of Present Illness - Stated complaint Stated Complaint: ABD PX - Chief complaint Chief Complaint: Abd Pain - Additonal information Additional information: Patient comes emergency department complaining of mid abdominal pain that is go tten progressively worse since yesterday. Patient states she felt nauseated earlier in the course and did vomit a little, but is not currently nauseated. She did dysuria or back pain. No chest pain or shortness of breath. Patient denies any fevers or chills. She states that she ate a pizza 2 days ago but thinks this is too long ago to have caused her symptoms. Patient states she still has her gallbladder. No other complaints at this time. Review of Systems Ten Systems: 10 systems reviewed and negative Constitutional: reports: Reviewed and negative Eyes: reports: Reviewed and negative Ears: reports: Reviewed and negative Nose: reports: Reviewed and negative Throat: reports: Reviewed and negative Cardiac: reports: Reviewed and negative Respiratory: reports: Reviewed and negative GI: reports: Abdominal Pain, Nausea : reports: Reviewed and negative Skin: reports: Reviewed and negative Musculoskeletal: reports: Reviewed and negative Neurologic: reports: Reviewed and negative Psychiatric: reports: Reviewed and negative Endocrine: reports: Reviewed and negative Immunocompromised: reports: Reviewed and negative PD PAST MEDICAL HISTORY - Past Medical History Cardiovascular: High cholesterol Respiratory: COPD Neuro: None Endocrine/Autoimmune: HyPOthyroidism GI: None 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: None : Kidney stones HEENT: Other Psych: None Musculoskeletal: Osteoarthritis, Chronic back pain Derm: Eczema, Psoriasis - Past Surgical History Past Surgical History: Yes /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: Hysterectomy, Oophrectomy, Breast reduction HEENT: Tonsil/Adenoidectomy - Present Medications Home Medications: Ambulatory Orders Medication Instructions Recorded Confirmed Ibuprofen [Advil] 100 mg PO 12/28/17 Hydrocodone/Acetaminophen 1 - 2 each PO Q6H PRN #14 tablet 04/02/19 [Hydrocodon-Acetaminophen 5-325] tiZANidine [Zanaflex] 04/02/19 Albuterol Sulf [Ventolin Hfa 1 - 2 puffs INH Q4HR PRN #1 inhaler 11/10/19 Inhaler] predniSONE [Prednisone] 40 mg PO DAILY 3 Days #6 tablet 11/10/19 - Allergies Allergies/Adverse Reactions: Allergies Allergy/AdvReac Type Severity Reaction Status Date / Time aspirin Allergy Nausea Verified 04/02/19 11:20 Penicillins Allergy vomiting, Verified 12/28/17 10:37 visual changes - Social History Does the pt smoke?: No Smoking Status: Never smoker Does the pt drink ETOH?: Yes Does the pt have substance abuse?: No - Immunizations Immunizations are current?: Yes - POLST Patient has POLST: No PD ED PE NORMAL - Vitals Vital signs reviewed: Yes - General General: Alert and oriented X 3 - HEENT HEENT: Atraumatic, PERRL, EOMI, Moist mucous membranes - Neck Neck: Supple, no meningeal sign - Cardiac Cardiac: RRR, No murmur - Respiratory Respiratory: Clear bilaterally - Abdomen Abdomen: Soft, Other (Marked tenderness over the epigastric region with moderate tenderness over the left upper quadrant and right upper quadrant. No CVA tenderness. 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, No motor deficit, No sensory deficit, Normal speech - Psych Psych: Normal mood, Normal affect Results - Vitals Vitals: Vital Signs - 24 hr 02/29/20 05:05 Temperature 36.7 C Heart Rate 105 H Respiratory 22 Rate Blood Pressure 181/92 H O2 Saturation 94 Oxygen O2 Source Room air - Labs Labs: Laboratory Tests 02/29/20 02/29/20 02/29/20 05:08 05:08 05:08 WBC 10.3 RBC 4.58 Hgb 14.2 Hct 42.7 MCV 93.2 MCH 31.0 MCHC 33.3 RDW 12.6 Plt Count 242 MPV 10.2 Neut # (Auto) 7.5 H Lymph # (Auto) 1.4 L [place] # (Auto) 1.1 H Eos # (Auto) 0.2 Baso # (Auto) 0.0 Absolute Nucleated RBC 0.00 Nucleated RBC % 0.0 Sodium 140 Potassium 4.1 Chloride 104 Carbon Dioxide 26 Anion Gap 10.0 BUN 17 Creatinine 0.8 Estimated GFR (MDRD) 71 L Glucose 151 H Calcium 10.3 Total Bilirubin 1.3 H AST 196 H ALT 124 H Alkaline Phosphatase 62 Troponin I High Sens 5.2 Total Protein 7.9 Albumin 4.3 Globulin 3.6 Albumin/Globulin Ratio 1.2 Lipase > 4800 H Urine Color Urine Clarity Urine pH Ur Specific [place] Urine Protein Urine Glucose (UA) Urine Ketones Urine Occult Blood Urine Nitrite Urine Bilirubin Urine Urobilinogen Ur Leukocyte Esterase Urine RBC Urine WBC Ur Squamous Epith Cells Urine Bacteria Ur Microscopic Review Urine Culture Comments 02/29/20 05:35 WBC RBC Hgb Hct MCV MCH MCHC RDW Plt Count MPV Neut # (Auto) Lymph # (Auto) [place] # (Auto) Eos # (Auto) Baso # (Auto) Absolute Nucleated RBC Nucleated RBC % Sodium Potassium Chloride Carbon Dioxide Anion Gap BUN Creatinine Estimated GFR (MDRD) Glucose Calcium Total Bilirubin AST ALT Alkaline Phosphatase Troponin I High Sens Total Protein Albumin Globulin Albumin/Globulin Ratio Lipase Urine Color YELLOW Urine Clarity CLEAR Urine pH 6.0 Ur Specific [place] 1.020 Urine Protein NEGATIVE Urine Glucose (UA) NEGATIVE Urine Ketones NEGATIVE Urine Occult Blood LARGE H Urine Nitrite NEGATIVE Urine Bilirubin NEGATIVE Urine Urobilinogen 0.2 (NORMAL) Ur Leukocyte Esterase TRACE H Urine RBC 6-10 H Urine WBC 4-5 Ur Squamous Epith Cells MOD Squamous H Urine Bacteria Rare Ur Microscopic Review INDICATED Urine Culture Comments NOT INDICATED PD MEDICAL DECISION MAKING - ED course Complexity details: reviewed old records, reviewed results, re-evaluated patient, considered differential, d/w patient ED course: Patient was worked up with labs, which showed an elevated lipase at 4800 and elevated bilirubin and LFTs. I felt it was likely that the patient gallstone pancreatitis, and as such, I did order an ultrasound of the patient's upper abdomen. Patient was given first morphine and then Dilaudid and Toradol for symptomatic relief. She signed out to the oncoming emergency physician, pending this, and for reevaluation and final disposition.
[2020-02-29] MEDS ORDERED: SODIUM CHLORIDE 0.9% 1,000 ML IV STA ×2 (07:51→08:53)
--- NOTE | 2020-02-29 08:42 | Ultrasound Report ---
Reason: upper abd pain, elevated LFT's Procedure Date: 02/29/2020 Accession Number: [id number] / [id number] Procedure: US - Abdomen Limited CPT Code: Final Report FULL RESULT: PROCEDURE: Abdomen Limited INDICATIONS: upper abd pain, elevated LFT's TECHNIQUE: Real-time focused scanning was performed of the right upper quadrant no gallstones, gallbladder wall thickening, or pericholecystic fluid., with image documentation. COMPARISON: CT abdomen pelvis 04/12/2018. FINDINGS: The liver demonstrates diffusely increased parenchymal echogenicity with coarse sonographic echotexture compatible with fatty infiltration. There is a small oval hypoechoic focus within the left lobe measuring up to 0.7 x 0.7 x 0.7 cm. No definitive posterior acoustic enhancement demonstrated. No internal vascularity on color Doppler interrogation. Gallbladder demonstrates no definite stones or gallbladder wall thickening. There is internal hypoechoic debris compatible with biliary sludge. No pericholecystic fluid. No intrahepatic biliary ductal dilatation. The visualized common bile duct is within normal size limits measuring 0.6 to 0.7 cm. The visualized pancreatic head appears unremarkable sonographically. Right kidney measures 11.4 cm. No hydronephrosis. No discrete shadowing renal stones identified. IMPRESSION: 1. Increased hepatic echogenicity with coarse sonographic echotexture likely represents steatosis. 2. Biliary sludge without evidence of cholelithiasis or cholecystitis. Reviewed by: Tr Davis MD on 02/29/2020 8:41 AM PDT Approved by: Tr Davis MD on 02/29/2020 8:41 AM PDT Station ID: [id number]
[2020-02-29] MEDS ORDERED: ACETAMINOPHEN 325 MG TABLET PO PRN (08:56)
[2020-02-29] MEDS ORDERED: ZOLPIDEM 5 MG TABLET PO PRN (08:56)
[2020-02-29] MEDS ORDERED: SODIUM CHLORIDE FLUSH 0.9% 10 ML SYRINGE IVP PRN (08:56)
--- NOTE | 2020-02-29 08:57 | ED Physician Documentation ---
ED Addendum - Addendum Addendum: 02/29/20 08:55 The patient needed repeat dosing of pain medicine. This was provided IV. She is not nauseous at this time. Her pain is better improved again. Her labs are showing significant pancreatitis. Her ultrasound report was showing some perhaps sludge in the gallbladder but no stones and no ductal dilatation. No signs of acute cholecystitis. The pancreatic duct appeared normal. At this point would presume primary pancreatitis. She is not a drinker. Her medications including gabapentin and primidone as well as a new supplement K MARGE are not associated with pancreatitis (the Internet does suggest possible liver involvement with kava). I talked with the hospitalist who will admit the patient for further treatment. Diagnoses acute pancreatitis #2 upper abdominal pain, and severe note Disposition the patient is admitted to the hospital and the hospitalist care
[2020-02-29] MEDS ORDERED: SODIUM CHLORIDE 0.9% 1,000 ML IV SCH (09:00)
[2020-02-29] MEDS ORDERED: ALBUTEROL NEB 2.5 MG/3 ML INH PRN (09:01)
[2020-02-29 09:19] LABS: CHOL/HDL RATIO 4.3 (<4.4); CHOLESTEROL 257 mg/dL; HDL CHOLESTEROL 60 mg/dL; LDL CHOLESTEROL,CALCULATED 153 mg/dL; LDL/HDL RATIO 2.6 (<4.4); VLDL CHOLESTEROL 44 mg/dL
--- NOTE | 2020-02-29 10:02 | HISTORY & PHYSICAL EXAMINATION ---
Chief Complaint - Chief Complaint Chief Complaint: abdominal pain History of Present Illness - History Obtained From History obtained from: pt - History of Present Illness HPI Comment/Other: This is a 89- years old female with a past medical history significant for hyperlipidemia, hypothyroidism, COPD, chronic back pain, psoriasis, who Who presents ER for complaint of abdominal pain. patient report she had onset of abdominal pain early this morning in the home, patient report there was nothing unusual before she started to have abdominal pain. She reported nauseated, and a small amount vomiting, no diarrhea. She reports abdominal pain located in up GI then radiated to bilateral abdomen.She denies fever chill, chest pain, difficulty breathing without other complaints. In routine test lab Lipase is over 4800. Her total bilirubin, AST, ALT all elevated. Her ultrasound report was showing some perhaps sludge in the gallbladder but without stones or ductal dilatation, and no signs of acute cholecystitis. The pancreatic duct appeared normal. pt refused to have CXR. pt report her pain is controlled now after pt was given pain medications in ER. pt is admitted for further medical management. History - Past Medical History Cardiovascular: reports: High cholesterol Respiratory: reports: COPD Neuro: reports: None Endocrine/Autoimmune: reports: HyPOthyroidism GI: reports: None ABE TEACHER: reports: None : reports: Kidney stones HEENT: reports: Other Psych: reports: None Musculoskeletal: reports: Osteoarthritis, Chronic back pain Derm: reports: Eczema, Psoriasis MRSA Hx?: No - Past Surgical History /ABE TEACHER: reports: Hysterectomy, Oophrectomy, Breast reduction HEENT: reports: Tonsil/Adenoidectomy - Family & Social History Family History: Mother: , Father: Family History Comment/Other: Her mother had a RI 70 years old, at the age 83 from CAD. her father at age 91 due to age related multiple medical problems Social History Notes: Patient smoke half of a pack per day for many years she quit in September 2013, she drink an occatinal glass of wine, denies any drug use. 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, - POLST Patient has POLST: No Meds/Allgy - Home Medications Home Medications: Ambulatory Orders Medication Instructions Recorded Confirmed Ibuprofen [Advil] 100 mg PO 12/28/17 Hydrocodone/Acetaminophen 1 - 2 each PO Q6H PRN #14 tablet 04/02/19 [Hydrocodon-Acetaminophen 5-325] tiZANidine [Zanaflex] 04/02/19 Albuterol Sulf [Ventolin Hfa 1 - 2 puffs INH Q4HR PRN #1 inhaler 11/10/19 Inhaler] predniSONE [Prednisone] 40 mg PO DAILY 3 Days #6 tablet 11/10/19 - Allergies Allergies/Adverse Reactions: Allergies Allergy/AdvReac Type Severity Reaction Status Date / Time aspirin Allergy Nausea Verified 04/02/19 11:20 Penicillins Allergy vomiting, Verified 12/28/17 10:37 visual changes Review of Systems - Constitutional Constitutional: denies: Fatigue, Fever, Chills, Malaise, Weakness, Poor appetite, Diaphoresis, Night sweats - Eyes Eyes: denies: Pain, Blurred vision, Spots in vision, Field loss, Vision loss, Dipolpia - Ears, Nose & Throat Ears, Nose & Throat: denies: Ear pain, Hearing loss, Tinnitus, Vertigo, Nasal pain, Nosebleeds, Nasal obstruction, Nasal congestion, Sore throat, Mouth lesions, Bleeding gums - Cardiovascular Cariovascular: denies: Irregular heart rate, Palpitations, Chest pain, Edema, Lightheadedness, Syncope, Exertional dyspnea, Decr. exercise tolerance - Respiratory Respiratory: denies: Cough, Sputum production, Wheezing, Snoring, Hemoptysis, Orthopnea, SOB at rest, SOB with exertion - Gastrointestinal Gastrointestinal: reports: Abdominal pain, Nausea, Vomiting. denies: Abdominal distention, Constipation, Diarrhea, Change in bowel habits, Rectal bleeding, Black stools, Bloody stools, Bile emesis, Christopher blood emesis, Coffee grounds emesis, Reflux/heartburn, Bloating, Poor appetite - Genitourinary Genitourinary: denies: Dysuria, Frequency, Urgency, Hematuria, Incontinence, Flank pain, Nocturia, Urethral discharge - Musculoskeletal Musculoskeletal: denies: Muscle pain, Back pain, Muscle aches, Stiffness, Limited range of motion, Muscle weakness, Gout, Joint pain - Integumentary Integumentary: denies: Rash, Pruritis, Dryness, Lumps - Neurological Neurological: denies: General weakness, Focal weakness, Headache, Dizziness, Numbness, Memory problems, Pre-existing deficit, Abnormal gait, Seizures, Incoordination, Slurred speech - Psychiatric Psychiatric: denies: Depression, Anxiety, Suicidal, Delusions, Hallucinations - Endocrine Endocrine: denies: Polyuria, Polydypsia, Polyphagia - Hematologic/Lymphatic Hematologic/Lymphatic: denies: Anemia, Bruising, Petechiae, Blood clots, Lymphadenopathy, Bleeding tendencies Exam - Vital Signs Vital Signs: Vital Signs x48h Temp Pulse Pulse Resp BP BP Pulse Ox 02/29/20 09:51 36.6 C 101 H 20 151/92 H 92 02/29/20 09:22 36.7 C 91 16 139/64 H 100 02/29/20 08:23 100 02/29/20 08:22 85 16 112/98 H 88 L 02/29/20 07:31 36.9 C 97 18 143/84 H 94 02/29/20 05:05 36.7 C 105 H 22 181/92 H 94 - Physical Exam General Appearance: positive: No acute distress, Alert Eyes Bilateral: positive: Normal inspection, PERRL, No lid inflammation ENT: positive: ENT inspection nml, No signs of dehydration. negative: Purulent nasal drainage Neck: positive: Nml inspection, Thyroid nml, No JVD, Trachea midline. negative: Thyromegaly, Stiff neck, Tracheal deviation Respiratory: positive: Chest non-tender, No respiratory distress, Wheezes. negative: Breath sounds nml, Rales, Rhonchi Cardiovascular: positive: Regular rate & rhythm, No murmur, No gallop. negative: Tachycardia, Bradycardia, Systolic murmur, Diastolic murmur Peripheral Pulses: positive: 2+ Abdomen: positive: Non-tender, No organomegaly, Nml bowel sounds. negative: Tenderness, Guarding, Rebound, Abnml bowel sounds, Bruit Back: positive: Nml inspection. negative: CVA tenderness (R), CVA tenderness ( L) Skin: positive: Color nml, No rash, Warm, Dry. negative: Cyanosis, Diaphoresis, Pallor Extremities: positive: Non-tender, Nml appearance. negative: Calf tenderness, Shelly's sign/cords Neurologic/Psychiatric: positive: Oriented x3, Motor nml, Sensation nml. negative: Weakness, Sensory loss, Facial droop, Slurred/abnml speech, Depressed mood/affect Sepsis Event Note (H) - Evaluation Current Stage of Sepsis: Ruled out Conclusion/Plan - Problem List (1) Pancreatitis Conclusion/Plan: Patient report this is a first-time she has pancreatitis, patient denies she have alcohol issue, she report she did take some supplement called Kava. home medication list pt took muscle relaxants zanaflex. Kava can cause Hepatic toxical and elevated liver enzyme. We will test Lipid panel, we will have bowel rest and intravenous IV fluids, lipase daily test, glucose check when patient is n.p.o. and vital signs check. Patient is a NPO now, will gradually advance patient's diet as tolerated Qualifiers: Chronicity: acute Pancreatitis type: unspecified pancreatitis type Acute pancreatitis complication: no infection or necrosis Qualified Code(s): K85.90 - Acute pancreatitis without necrosis or infection, unspecified (2) Abdominal pain Conclusion/Plan: Patient abdominal pain is likely secondary to acute pancreatitis, ultrasound of abdomen review resolved without acute cholecystitis or dilation of the common bile duct. the tail of the pancreas seems normal in the ultrasound. Plan, bowel rest, pain control, intravenous IV fluids Qualifiers: Abdominal location: upper abdomen, unspecified Qualified Code(s): R10.10 - Upper abdominal pain, unspecified (3) History of COPD Conclusion/Plan: Patient has history of COPD, patient show slightly wheez, patient has a sats 92% on room air, unfortunately patient refused have chest x-ray , we will start with albuterol and duoneb with breathing treatment, consult with RT.We will start with patient home medications after verification by the pharmacy (4) HLD (hyperlipidemia) Conclusion/Plan: Patient has a history of hyperlipidemia, will check lipid panel, will follow up the test study. pancreatitis can be caused by high level of triglycerides, we will followup the test result. (5) Chronic pain Conclusion/Plan: Patient has history of for chronic pain, we will use pain medication to control the pain in the abdomen - Lab Results Fish Bones: 02/29/20 05:08 02/29/20 05:08 Core Measures - Anticipated LOS I expect patient to be DC'd or transferred within 96 hours.: Yes - DVT/VTE - Prophylaxis VTE/DVT Device ordered at admit?: Yes VTE/DVT Prophylaxis med ordered at admit?: Yes
[2020-02-29] MEDS: HYDROmorphone 0.5 MG/0.5 ML SYRINGE IVP PRN ×3 (10:13→17:30)
[2020-02-29] MEDS ORDERED: IPRATROPIUM/ALBUTEROL 3 ML NEB INH PRN (10:17)
[2020-02-29] MEDS: SODIUM CHLORIDE 0.9% 1,000 ML IV SCH ×2 (10:42→18:25)
[2020-02-29] MEDS: BENZOCAINE/MENTHOL LOZENGE MM PRN ×2 (11:45→17:30)
[2020-02-29] MEDS: SODIUM CHLORIDE FLUSH 0.9% 10 ML SYRINGE IVP SCH ×2 (12:06→17:26)
[2020-02-29] MEDS: ENOXAPARIN 40 MG/0.4 ML SYRINGE SUBQ SCH (12:06)
--- NOTE | 2020-02-29 12:08 | PHARMACY PROGRESS NOTE ---
- Best Possible Medication History Admit Date and Time: 02/29/20 0856 Processed by: Pharmacy Medication History completed: Yes Patient Interview: Completed Secondary Source(s): Pharmacy records, Insurance records As the person ultimately responsible for medication therapy, providers are able to order a medication from an existing home medication list in [facility] via the "Reconcile Routine" prior to Confirmation of that medication by direct support professional home health. Such practice is discouraged except when the physician, in their clinical judgment, deems that a medical need exists for a medication without regard to previous use.
[2020-02-29] MEDS ORDERED: SALIVA STIMULANT SPRAY 44.3 ML BOTTLE PO PRN (12:16)
[2020-02-29] MEDS: ACETAMINOPHEN 1,000 MG/100 ML 100 ML IV PRN (18:26)
[2020-02-29] MEDS: HYDROmorphone 1 MG/ML CARPUJECT IVP PRN (18:32)
[2020-02-29] MEDS: ATORVASTATIN 10 MG TABLET PO SCH (21:09)
[2020-02-29] MEDS: ACETAMINOPHEN 325 MG TABLET PO PRN (21:47)
[2020-02-29] MEDS: GABAPENTIN 100 MG CAPSULE PO PRN (21:56)
[2020-02-29] MEDS ORDERED: diphenhydrAMINE 25 MG CAPSULE PO PRN (22:17)
[2020-02-29] MEDS ORDERED: GABAPENTIN 100 MG CAPSULE PO STA (22:41)
[2020-03-01] MEDS: CALCIUM CARBONATE CHEW 500 MG TABLET PO PRN ×2 (00:15→02:34)
[2020-03-01] MEDS: ONDANSETRON 4 MG/2 ML VIAL IVP PRN ×3 (00:15→22:14)
[2020-03-01] MEDS: SODIUM CHLORIDE FLUSH 0.9% 10 ML SYRINGE IVP SCH ×3 (00:21→20:39)
[2020-03-01] MEDS: HYDROmorphone 1 MG/ML CARPUJECT IVP PRN (00:39)
[2020-03-01] MEDS: oxyCODONE 5 MG TABLET PO PRN ×2 (02:33→17:50)
[2020-03-01] MEDS: SODIUM CHLORIDE 0.9% 1,000 ML IV SCH ×3 (04:16→18:00)
[2020-03-01 05:12] LABS: BASOPHILS % (AUTO) 0.3 %; EOSINOPHILS # (AUTO) 0.2 10^3/uL (0.0-0.7); EOSINOPHILS % (AUTO) 2.3 %; HGB - HEMOGLOBIN 12.6 g/dL (12.0-16.0); MEAN CORPUSCULAR HGB CONC 31.4 g/dL (32.0-36.0); MEAN CORPUSCULAR VOLUME 95.5 fL (81.0-99.0); MEAN PLATELET VOLUME 10.6 fL (7.9-10.8); MONOCYTES # (AUTO) 0.7 10^3/uL (0.0-1.0); MONOCYTES % (AUTO) 10.3 %; NEUTROPHILS % (AUTO) 72.8 %; PLT - PLATELET COUNT 200 10^3/uL (130-450); RED CELL DISTRIBUTION WIDTH 12.9 % (12.0-15.0); WHITE BLOOD COUNT 6.9 x10^3/uL (4.8-10.8)
[2020-03-01 05:28] LABS: ALBUMIN 3.7 g/dL (3.2-5.5); CREATININE 0.6 mg/dL (0.4-1.0); TOTAL PROTEIN 7.3 g/dL (6.7-8.2)
[2020-03-01] MEDS: PANTOPRAZOLE 40 MG TABLET PO SCH (06:25)
[2020-03-01] MEDS ORDERED: HYDROmorphone 1 MG/ML CARPUJECT IVP PRN (07:19)
[2020-03-01] MEDS: ENOXAPARIN 40 MG/0.4 ML SYRINGE SUBQ SCH (08:19)
[2020-03-01] MEDS: ACETAMINOPHEN 1,000 MG/100 ML 100 ML IV PRN ×2 (08:20→23:55)
[2020-03-01] MEDS ORDERED: PROCHLORPERAZINE 10 MG/2 ML VIAL IVP PRN (08:45)
--- NOTE | 2020-03-01 09:57 | PROVIDER PROGRESS NOTE ---
Assessment/Plan - Problem List (1) Pancreatitis Qualifiers: Chronicity: acute Pancreatitis type: unspecified pancreatitis type Acute pancreatitis complication: no infection or necrosis Qualified Code(s): K85.90 - Acute pancreatitis without necrosis or infection, unspecified Assessment/Plan: 6/ Patient report abdominal pain is better, but she still complains nauseated and the headache, and a complain constipation for 2 days. Patient's lipase is running down to the 270 from over 4800 in the admission. Patient report she have abdominal pain after she started the Kava, Kava can affect the liver, can cause liver enzyme going up, also could affect to have pancreatitis. Kava has over 40 compounds, unknown which compounds could affect people to cause pancreatitis, patient reported she will stop take Kava. Continue intravenous of normal saline, continue with clear liquid diet we will advance diet as the patient tolerated, continue pain control, Continue lab monitor and lipase monitor, Tylenol for headache as needed, started on bowel movement protocol Patient report this is a first-time she has pancreatitis, patient denies she have alcohol issue, she report she did take some supplement called Kava. home medication list pt took muscle relaxants zanaflex. Kava can cause Hepatic tox ical and elevated liver enzyme. We will test Lipid panel, we will have bowel rest and intravenous IV fluids, lipase daily test, glucose check when patient is n.p.o. and vital signs check. Patient is a NPO now, will gradually advance patient's diet as tolerated (2) Abdominal pain Conclusion/Plan: 6/ Patient report abdominal pain is better, not like before squeezing pain in the abdomen, will continue pain control, continue intravenous of normal saline, continue lipase monitor Patient abdominal pain is likely secondary to acute pancreatitis, ultrasound of abdomen review resolved without acute cholecystitis or dilation of the common bile duct. the tail of the pancreas seems normal in the ultrasound. Plan, bowel rest, pain control, intravenous IV fluids (3) History of COPD Conclusion/Plan: 6/3 stable Patient has history of COPD, patient show slightly wheez, patient has a sats 92% on room air, unfortunately patient refused have chest x-ray , we will start with albuterol and duoneb with breathing treatment, consult with RT.We will start with patient home medications after verification by the pharmacy (4) HLD (hyperlipidemia) Conclusion/Plan: 6 Because patient has hyperlipidemia in the test, patient started on low dosage of Lipitor. Patient has a history of hyperlipidemia, will check lipid panel, will follow up the test study. pancreatitis can be caused by high level of triglycerides, we will followup the test result. (5) Chronic pain Conclusion/Plan: Patient has history of for chronic pain, we will use pain medication to control the pain in the abdomen (6)constipation pt report She had a 2 days no bowel movement, patient take opiates in the hospital, patient also take [place] in the home as her chronic pain, which also could affect the patient for bowel movement, discussed with pt and nurse, we will started with a bowel protocol. we will closely watch the patient if pt has bowel movement, will order meds if pt continue to have this problem (7) headache pt report she has chronic migraine headache,Patient had worsening headache after she was admitted to the hospital, with pancreatitis. we will start intravenous Tylenol as needed because of the patient nauseated with PO medication. patient does not show any unilateral focal neurological deficit at this point. (2) Abdominal pain Qualifiers: Abdominal location: upper abdomen, unspecified Qualified Code(s): R10.10 - Upper abdominal pain, unspecified - Current Meds Current Meds: Current Medications Generic Name Dose Route Start Last Admin Trade Name Freq PRN Reason Stop Dose Admin Acetaminophen 650 mg 02/29/20 21:37 02/29/20 21:47 Tylenol PO 650 mg Q6HR PRN Administration Pain or Fever > 38C (100.4F) Atorvastatin Calcium 20 mg 02/29/20 21:00 02/29/20 21:09 Lipitor PO 20 mg QPM XAVIER Administration Calcium Carbonate/Glycine 500 mg 02/29/20 23:17 03/01/20 02:34 Tums PO 500 mg BID PRN Administration Heartburn Enoxaparin Sodium 40 mg 02/29/20 09:00 03/01/20 08:19 Lovenox SUBQ 40 mg DAILY XAVIER Administration Gabapentin 100 mg 02/29/20 13:10 02/29/20 21:56 Neurontin PO 100 mg BID PRN Administration PAIN Sodium Chloride 1,000 mls @ 125 mls/hr 02/29/20 10:04 03/01/20 04:16 Normal Saline 0.9% IV 125 mls/hr .Q8H XAVIER Administration Acetaminophen 100 mls @ 400 mls/hr 02/29/20 18:08 03/01/20 08:20 Ofirmev IV 400 mls/hr Q8HR PRN Administration PAIN Ondansetron HCl 4 mg 02/29/20 08:56 03/01/20 08:19 Zofran Inj IVP 4 mg Q6HR PRN Administration Nausea / Vomiting Oxycodone HCl 5 mg 02/29/20 08:56 03/01/20 02:33 Roxicodone PO 5 mg Q4HR PRN Administration Pain 5 to 7 Pantoprazole Sodium 40 mg 03/01/20 07:00 03/01/20 06:25 Protonix PO Not Given QDAC XAVIER Saliva Substitute 2 sprays 02/29/20 12:16 02/29/20 17:30 Biotene Moisturizing Mouth [place] PO 2 sprays Q4H PRN Administration DRY MOUTH Sodium Chloride 10 ml 02/29/20 09:00 03/01/20 00:21 Normal Saline Flush 0.9% IVP 10 ml 0100,0900,1700 XAVIER Administration Throat Lozenges 1 lozenge 02/29/20 10:41 02/29/20 17:30 Cepacol MM 1 lozenge Q2HR PRN Administration Throat pain - Lab Result Fish Bone Diagrams: 03/01/20 04:35 03/01/20 04:35 - Additional Planning My Orders: My Active Orders 02/29/20 08:58 SCDs [RC] QSHIFT 02/29/20 09:00 Enoxaparin [Lovenox] 40 mg SUBQ DAILY Sodium Chloride Flush 0.9% [Normal Saline Flush 0.9%] 10 ml IVP 0100,0900,1700 02/29/20 09:01 Albuterol 2.5 mg INH RTQ4H PRN 02/29/20 10:04 Sodium Chloride 0.9% [Normal Saline 0.9%] 1,000 ml IV 125 mls/hr 02/29/20 10:17 Nebulizer/MDI Tx. [RC] .QID Resp Teach Nebulizer/MDI [RC] .ONCE Ipratropium/Albuterol [Duoneb] 3 ml INH RTQID PRN 02/29/20 10:41 Benzocaine/Menthol [Cepacol] 1 lozenge MM Q2HR PRN 02/29/20 12:16 Saliva Stimulant [place] [Biotene Moisturizing Mouth [place]] 2 sprays PO Q4H PRN 02/29/20 13:10 Gabapentin [Neurontin] 100 mg PO BID PRN Primidone [Mysoline] 50 mg PO BID PRN 02/29/20 18:08 Acetaminophen 1,000 mg/100 ml [Ofirmev] 100 ml IV Q8HR 02/29/20 21:00 Atorvastatin [Lipitor] 20 mg PO QPM 03/01/20 07:00 Pantoprazole [Protonix] 40 mg PO QDAC 03/01/20 07:19 HYDROmorphone INJ CARP [Dilaudid Inj Carp] 1 mg IVP Q4H PRN 03/01/20 08:45 Prochlorperazine Inj [Compazine Inj] 10 mg IVP Q6HR PRN 03/01/20 09:00 polyethylene glycoL 3350 [Miralax] 17 gm PO DAILY 03/02/20 05:00 CBC - COMP BLD CT W/AUTO DIFF [HEME] DAILYLAB CMP [COMPREHENSIVE METABOLIC PANEL] [CHEM] DAILYLAB LIPASE [CHEM] DAILYLAB 03/03/20 05:00 CBC - COMP BLD CT W/AUTO DIFF [HEME] DAILYLAB CMP [COMPREHENSIVE METABOLIC PANEL] [CHEM] DAILYLAB LIPASE [CHEM] DAILYLAB 03/04/20 05:00 CBC - COMP BLD CT W/AUTO DIFF [HEME] DAILYLAB CMP [COMPREHENSIVE METABOLIC PANEL] [CHEM] DAILYLAB LIPASE [CHEM] DAILYLAB Subjective - Subjective Patient Reports: Feeling Better Objective Vital Signs: Vital Signs - 24 hr 02/29/20 03/01/20 03/01/20 17:23 00:00 08:28 Temperature 36.7 C 36.8 C 36.7 C Heart Rate [ 94 90 97 Brachial] Respiratory 20 18 18 Rate Blood Pressure 148/89 H 143/74 H 157/83 H [Right Brachial artery] O2 Saturation 95 94 94 Oxygen O2 Source Room air I&O (Last 24 Hrs): Intake and Output Totals x24h 02/28/20 02/29/20 03/01/20 23:59 23:59 23:59 Intake Total 2064.583 1000 Balance 2064.583 1000 General: Alert, Oriented x3, No acute distress HEENT: Atraumatic Neck: Supple Lymphatic: no adenopathy Neuro: Alert, Non Focal, Oriented Times 3 Cardiovascular: Regular rate, Normal S1, Normal S2 Respiratory: Chest non-tender, No respiratory distress Abdomen: Normal bowel sounds, Soft, No tenderness Extremities: Normal pulses - Results Results: Laboratory Results WBC 6.9 x10^3/uL (4.8-10.8) 03/01/20 04:35 RBC 4.20 10^6/uL (4.20-5.40) 03/01/20 04:35 Hgb 12.6 g/dL (12.0-16.0) 03/01/20 04:35 Hct 40.1 % (37.0-47.0) 03/01/20 04:35 MCV 95.5 fL (81.0-99.0) 03/01/20 04:35 MCH 30.0 pg (27.0-31.0) 03/01/20 04:35 MCHC 31.4 g/dL (32.0-36.0) L 03/01/20 04:35 RDW 12.9 % (12.0-15.0) 03/01/20 04:35 Plt Count 200 10^3/uL (130-450) 03/01/20 04:35 MPV 10.6 fL (7.9-10.8) 03/01/20 04:35 Neut # (Auto) 5.0 10^3/uL (1.5-6.6) 03/01/20 04:35 Lymph # (Auto) 1.0 10^3/uL (1.5-3.5) L 03/01/20 04:35 [place] # (Auto) 0.7 10^3/uL (0.0-1.0) 03/01/20 04:35 Eos # (Auto) 0.2 10^3/uL (0.0-0.7) 03/01/20 04:35 Baso # (Auto) 0.0 10^3/uL (0.0-0.1) 03/01/20 04:35 Absolute Nucleated RBC 0.00 x10^3/uL 03/01/20 04:35 Nucleated RBC % 0.0 /100WBC 03/01/20 04:35 Sodium 138 mmol/L (135-145) 03/01/20 04:35 Potassium 4.0 mmol/L (3.5-5.0) 03/01/20 04:35 Chloride 103 mmol/L (101-111) 03/01/20 04:35 Carbon Dioxide 27 mmol/L (21-32) 03/01/20 04:35 Anion Gap 8.0 (6-13) 03/01/20 04:35 BUN 11 mg/dL (6-20) 03/01/20 04:35 Creatinine 0.6 mg/dL (0.4-1.0) 03/01/20 04:35 Estimated GFR (MDRD) 99 (>89) 03/01/20 04:35 Glucose 120 mg/dL (70-100) H 03/01/20 04:35 Calcium 9.0 mg/dL (8.5-10.3) 03/01/20 04:35 Total Bilirubin 1.0 mg/dL (0.2-1.0) 03/01/20 04:35 AST 62 IU/L (10-42) H 03/01/20 04:35 ALT 109 IU/L (10-60) H 03/01/20 04:35 Alkaline Phosphatase 58 IU/L (42-121) 03/01/20 04:35 Troponin I High Sens 5.2 ng/L (2.3-14.8) 02/29/20 05:08 Total Protein 7.3 g/dL (6.7-8.2) 03/01/20 04:35 Albumin 3.7 g/dL (3.2-5.5) 03/01/20 04:35 Globulin 3.6 g/dL (2.1-4.2) 03/01/20 04:35 Albumin/Globulin Ratio 1.0 (1.0-2.2) 03/01/20 04:35 Triglycerides 219 mg/dL (-149) H 02/29/20 05:08 Cholesterol 257 mg/dL (-199) H 02/29/20 05:08 LDL Cholesterol, Calc 153 mg/dL (-129) H 02/29/20 05:08 VLDL Cholesterol 44 mg/dL 02/29/20 05:08 HDL Cholesterol 60 mg/dL (60-) 02/29/20 05:08 LDL/HDL Ratio 2.6 (<4.4) 02/29/20 05:08 Cholesterol/HDL Ratio 4.3 (<4.4) 02/29/20 05:08 Lipase 277 U/L (22-51) H 03/01/20 04:35 TSH 1.47 uIU/mL (0.34-5.60) 03/01/20 04:35 Urine Color YELLOW 02/29/20 05:35 Urine Clarity CLEAR (CLEAR) 02/29/20 05:35 Urine pH 6.0 PH (5.0-7.5) 02/29/20 05:35 Ur Specific [place] 1.020 (1.002-1.030) 02/29/20 05:35 Urine Protein NEGATIVE mg/dL (NEGATIVE) 02/29/20 05:35 Urine Glucose (UA) NEGATIVE mg/dL (NEGATIVE) 02/29/20 05:35 Urine Ketones NEGATIVE mg/dL (NEGATIVE) 02/29/20 05:35 Urine Occult Blood LARGE (NEGATIVE) H 02/29/20 05:35 Urine Nitrite NEGATIVE (NEGATIVE) 02/29/20 05:35 Urine Bilirubin NEGATIVE (NEGATIVE) 02/29/20 05:35 Urine Urobilinogen 0.2 (NORMAL) E.U./dL (NORMAL) 02/29/20 05:35 Ur Leukocyte Esterase TRACE (NEGATIVE) H 02/29/20 05:35 Urine RBC 6-10 /HPF (0-5) H 02/29/20 05:35 Urine WBC 4-5 /HPF (0-5) 02/29/20 05:35 Ur Squamous Epith Cells MOD Squamous (<= Few) H 02/29/20 05:35 Urine Bacteria Rare /HPF (None Seen) 02/29/20 05:35 Ur Microscopic Review INDICATED 02/29/20 05:35 Urine Culture Comments NOT INDICATED 02/29/20 05:35 Ethyl Alcohol < 5.0 mg/dL 02/29/20 05:08 - Procedures Procedures: Procedures EXCISION OF R UP LEG SUBCU/FASCIA, OPEN APPROACH (12/09/16) Sepsis Event Note (H) - Evaluation Current Stage of Sepsis: Ruled out ABX Reporting Has patient been on IV antibiotics over the past 48 hours?: No Current Medications - Current Medications Current Medications: Active Medications Acetaminophen (Tylenol) 650 mg PO Q6HR PRN PRN Reason: Pain or Fever > 38C (100.4F) Last Admin: 02/29/20 21:47 Dose: 650 mg Albuterol () 2.5 mg INH RTQ4H PRN PRN Reason: Wheezing Albuterol/Ipratropium (Duoneb) 3 ml INH RTQID PRN PRN Reason: Shortness of Air/Wheezing Atorvastatin Calcium (Lipitor) 20 mg PO QPM [facility] Last Admin: 02/29/20 21:09 Dose: 20 mg Calcium Carbonate/Glycine (Tums) 500 mg PO BID PRN PRN Reason: Heartburn Last Admin: 03/01/20 02:34 Dose: 500 mg Diphenhydramine HCl (Benadryl) 25 mg PO Q4HR PRN PRN Reason: Allergy Symptoms Enoxaparin Sodium (Lovenox) 40 mg SUBQ DAILY [facility] Last Admin: 03/01/20 08:19 Dose: 40 mg Gabapentin (Neurontin) 100 mg PO BID PRN PRN Reason: PAIN Last Admin: 02/29/20 21:56 Dose: 100 mg Hydromorphone HCl (Dilaudid Inj Carp) 1 mg IVP Q4H PRN PRN Reason: Pain 8 to 10 Sodium Chloride (Normal Saline 0.9%) 1,000 mls @ 125 mls/hr IV .Q8H [facility] Last Admin: 03/01/20 04:16 Dose: 125 mls/hr Acetaminophen (Ofirmev) 100 mls @ 400 mls/hr IV Q8HR PRN PRN Reason: PAIN Last Infusion: 03/01/20 10:03 Dose: Infused Ondansetron HCl (Zofran Inj) 4 mg IVP Q6HR PRN PRN Reason: Nausea / Vomiting Last Admin: 03/01/20 08:19 Dose: 4 mg Oxycodone HCl (Roxicodone) 5 mg PO Q4HR PRN PRN Reason: Pain 5 to 7 Last Admin: 03/01/20 02:33 Dose: 5 mg Pantoprazole Sodium (Protonix) 40 mg PO QDAC [facility] Last Admin: 03/01/20 06:25 Dose: Not Given Polyethylene Glycol (Miralax) 17 gm PO DAILY [facility] Primidone (Mysoline) 50 mg PO BID PRN PRN Reason: PAIN Prochlorperazine Edisylate (Compazine Inj) 10 mg IVP Q6HR PRN PRN Reason: Nausea / Vomiting Saliva Substitute (Biotene Moisturizing Mouth [place]) 2 sprays PO Q4H PRN PRN Reason: DRY MOUTH Last Admin: 02/29/20 17:30 Dose: 2 sprays Sodium Chloride (Normal Saline Flush 0.9%) 10 ml IVP PRN PRN PRN Reason: NEEDED PER PROVIDER ORDERS Sodium Chloride (Normal Saline Flush 0.9%) 10 ml IVP 0100,0900,1700 XAVIER Last Admin: 03/01/20 10:10 Dose: Not Given Throat Lozenges (Cepacol) 1 lozenge MM Q2HR PRN PRN Reason: Throat pain Last Admin: 02/29/20 17:30 Dose: 1 lozenge Acetaminophen [Tylenol Extra Strength] 500 mg PO QID PRN 02/29/20 Gabapentin 100 mg PO BID PRN 02/29/20 Ibuprofen [Advil] 200 mg PO DAILY PRN 02/29/20 Naproxen [Naprosyn] 500 mg PO DAILY PRN 02/29/20 Primidone [Mysoline] 50 mg PO BID PRN 02/29/20 Tizanidine HCl 4 mg PO DAILY PRN 02/29/20
[2020-03-01] MEDS: GABAPENTIN 100 MG CAPSULE PO PRN ×2 (10:41→20:38)
[2020-03-01] MEDS: polyethylene glycoL 3350 17 GM PACKET PO SCH (10:48)
[2020-03-01] MEDS: ACETAMINOPHEN 325 MG TABLET PO PRN ×2 (14:20→20:38)
[2020-03-01] MEDS: PRIMIDONE 50 MG TABLET PO PRN (16:50)
[2020-03-01] MEDS: ATORVASTATIN 10 MG TABLET PO SCH (20:38)
[2020-03-01] MEDS ORDERED: GABAPENTIN 100 MG CAPSULE PO SCH (22:00)
[2020-03-02] MEDS: SODIUM CHLORIDE FLUSH 0.9% 10 ML SYRINGE IVP SCH ×3 (00:01→16:01)
[2020-03-02] MEDS: SODIUM CHLORIDE 0.9% 1,000 ML IV SCH (01:40)
[2020-03-02] MEDS: ONDANSETRON 4 MG/2 ML VIAL IVP PRN (04:14)
[2020-03-02 05:08] LABS: BASOPHILS % (AUTO) 0.3 %; EOSINOPHILS # (AUTO) 0.1 10^3/uL (0.0-0.7); EOSINOPHILS % (AUTO) 1.8 %; HGB - HEMOGLOBIN 12.2 g/dL (12.0-16.0); LYMPHOCYTES # (AUTO) 0.7 10^3/uL (1.5-3.5); LYMPHOCYTES % (AUTO) 10.6 %; MEAN CORPUSCULAR HEMOGLOBIN 31.1 pg (27.0-31.0); MEAN CORPUSCULAR HGB CONC 32.2 g/dL (32.0-36.0); MEAN CORPUSCULAR VOLUME 96.7 fL (81.0-99.0); MEAN PLATELET VOLUME 10.6 fL (7.9-10.8); MONOCYTES # (AUTO) 0.7 10^3/uL (0.0-1.0); MONOCYTES % (AUTO) 10.6 %; NEUTROPHILS # (AUTO) 5.1 10^3/uL (1.5-6.6); NEUTROPHILS % (AUTO) 76.6 %; PLT - PLATELET COUNT 196 10^3/uL (130-450); RED BLOOD COUNT 3.92 10^6/uL (4.20-5.40); RED CELL DISTRIBUTION WIDTH 12.8 % (12.0-15.0); WHITE BLOOD COUNT 6.7 x10^3/uL (4.8-10.8)
[2020-03-02 05:19] LABS: ALBUMIN 3.7 g/dL (3.2-5.5); ALBUMIN/GLOBULIN RATIO 1.1 (1.0-2.2); BILIRUBIN,TOTAL 0.9 mg/dL (0.2-1.0); CALCIUM 8.9 mg/dL (8.5-10.3); CREATININE 0.6 mg/dL (0.4-1.0); TOTAL PROTEIN 7.2 g/dL (6.7-8.2)
[2020-03-02] MEDS: PANTOPRAZOLE 40 MG TABLET PO SCH (06:18)
[2020-03-02] MEDS ORDERED: SODIUM CHLORIDE 0.9% 1,000 ML IV SCH ×3 (07:20→13:05)
[2020-03-02] MEDS: ACETAMINOPHEN 325 MG TABLET PO PRN (07:28)
[2020-03-02] MEDS: ENOXAPARIN 40 MG/0.4 ML SYRINGE SUBQ SCH (08:33)
[2020-03-02] MEDS: polyethylene glycoL 3350 17 GM PACKET PO SCH (08:35)
[2020-03-02] MEDS: SACCHAROMYCES BOULARDII 250 MG CAPSULE PO SCH (08:37)
[2020-03-02] MEDS: ACETAMINOPHEN 1,000 MG/100 ML 100 ML IV PRN (10:35)
[2020-03-02] MEDS: CALCIUM CARBONATE CHEW 500 MG TABLET PO PRN (10:39)
[2020-03-02] MEDS: GABAPENTIN 100 MG CAPSULE PO PRN ×2 (11:16→18:21)
[2020-03-02] MEDS: HYDROcod/ACETAM 5/325 MG TABLET PO PRN ×2 (13:58→20:30)
--- NOTE | 2020-03-02 15:32 | PROVIDER PROGRESS NOTE ---
Subjective - Prog Note Date Prog Note Date: 03/02/20 - Subjective Pt reports feeling: Improved Subjective: pt complain of worsening headache, and still complain of some nausea. she denies fever, chill, focal neurological deficits, chest pain, shortness of breath. Current Medications - Current Medications Current Medications: Active Medications Hydrocodone Bitart/Acetaminophen ([place] 5/325) 1 tab PO Q4HR PRN PRN Reason: PAIN Last Admin: 03/02/20 13:58 Dose: 1 tab Albuterol () 2.5 mg INH RTQ4H PRN PRN Reason: Wheezing Albuterol/Ipratropium (Duoneb) 3 ml INH RTQID PRN PRN Reason: Shortness of Air/Wheezing Atorvastatin Calcium (Lipitor) 20 mg PO QPM [facility] Last Admin: 03/01/20 20:38 Dose: 20 mg Calcium Carbonate/Glycine (Tums) 500 mg PO BID PRN PRN Reason: Heartburn Last Admin: 03/02/20 10:39 Dose: 500 mg Diphenhydramine HCl (Benadryl) 25 mg PO Q4HR PRN PRN Reason: Allergy Symptoms Enoxaparin Sodium (Lovenox) 40 mg SUBQ DAILY [facility] Last Admin: 03/02/20 08:33 Dose: 40 mg Gabapentin (Neurontin) 100 mg PO TID PRN PRN Reason: neuropathy Last Admin: 03/02/20 11:16 Dose: 100 mg Sodium Chloride (Normal Saline 0.9%) 1,000 mls @ 85 mls/hr IV .[id number] [facility] Stop: 03/03/20 12:36 Last Admin: 03/02/20 13:40 Dose: Not Given Ondansetron HCl (Zofran Inj) 4 mg IVP Q6HR PRN PRN Reason: Nausea / Vomiting Last Admin: 03/02/20 04:14 Dose: 4 mg Pantoprazole Sodium (Protonix) 40 mg PO QDAC [facility] Last Admin: 03/02/20 06:18 Dose: Not Given Polyethylene Glycol (Miralax) 17 gm PO DAILY [facility] Last Admin: 03/02/20 08:35 Dose: 17 gm Primidone (Mysoline) 50 mg PO BID PRN PRN Reason: PAIN Last Admin: 03/01/20 16:50 Dose: 50 mg Prochlorperazine Edisylate (Compazine Inj) 10 mg IVP Q6HR PRN PRN Reason: Nausea / Vomiting Last Admin: 03/01/20 10:41 Dose: 10 mg Saccharomyces Boulardii (Florastor) 250 mg PO DAILY [facility] Last Admin: 03/02/20 08:37 Dose: 250 mg Saliva Substitute (Biotene Moisturizing Mouth [place]) 2 sprays PO Q4H PRN PRN Reason: DRY MOUTH Last Admin: 02/29/20 17:30 Dose: 2 sprays Sodium Chloride (Normal Saline Flush 0.9%) 10 ml IVP PRN PRN PRN Reason: NEEDED PER PROVIDER ORDERS Sodium Chloride (Normal Saline Flush 0.9%) 10 ml IVP 0100,0900,1700 [facility] Last Admin: 03/02/20 08:19 Dose: Not Given Throat Lozenges (Cepacol) 1 lozenge MM Q2HR PRN PRN Reason: Throat pain Last Admin: 02/29/20 17:30 Dose: 1 lozenge Acetaminophen [Tylenol Extra Strength] 500 mg PO QID PRN 02/29/20 Gabapentin 100 mg PO TID PRN 02/29/20 Ibuprofen [Advil] 200 mg PO DAILY PRN 02/29/20 Naproxen [Naprosyn] 500 mg PO BID PRN 02/29/20 Primidone [Mysoline] 50 mg PO BID PRN 02/29/20 Tizanidine HCl 4 mg PO DAILY PRN 02/29/20 Objective - Vital Signs/Intake & Output Reviewed Vital Signs: Yes Intake & Output: Intake & Output 02/28/20 02/29/20 03/01/20 03/02/20 23:59 23:59 23:59 23:59 Intake Total 4.583 4099.167 1655.833 Balance 4.583 4099.167 1655.833 - Objective General Appearance: positive: Alert, Mild distress. negative: Lethargic Eyes Bilateral: positive: Normal inspection, PERRL, No lid inflammation ENT: positive: ENT inspection nml, No signs of dehydration. negative: Purulent nasal drainage Neck: positive: Nml inspection, Thyroid nml, Trachea midline. negative: Thyromegaly, Stiff neck, Tracheal deviation Respiratory: positive: Chest non-tender, No respiratory distress, Breath sounds nml. negative: Wheezes, Rales, Rhonchi Cardiovascular: positive: Regular rate & rhythm, No murmur, No gallop. negative: Irregularly irregular, Tachycardia, Bradycardia, Systolic murmur, Diastolic murmur Peripheral Pulses: 2+ Radial (R), 2+ Radial (L) Abdomen: positive: Non-tender, No organomegaly, Nml bowel sounds, No distention. negative: Tenderness, Guarding, Rebound Back: positive: Nml inspection. negative: CVA tenderness (R), CVA tenderness (L) Skin: positive: Color nml, No rash, Warm, Dry. negative: Cyanosis, Diaphoresis, Pallor Extremities: positive: Non-tender, Full ROM, Nml appearance. negative: Calf tenderness, Shelly's sign/cords Neurologic/Psychiatric: positive: Oriented x3, Motor nml, Sensation nml. negative: Weakness, Facial droop, Slurred/abnml speech, Depressed mood/affect - Lab Results Fish Bones: 03/02/20 04:40 03/02/20 04:40 Other Labs: Lab Results x24hrs 03/02/20 03/02/20 Range/Units 04:40 04:40 WBC 6.7 (4.8-10.8) x10^3/uL RBC 3.92 L (4.20-5.40) 10^6/uL Hgb 12.2 (12.0-16.0) g/dL Hct 37.9 (37.0-47.0) % MCV 96.7 (81.0-99.0) fL MCH 31.1 H (27.0-31.0) pg MCHC 32.2 (32.0-36.0) g/dL RDW 12.8 (12.0-15.0) % Plt Count 196 (130-450) 10^3/uL MPV 10.6 (7.9-10.8) fL Neut # (Auto) 5.1 (1.5-6.6) 10^3/uL Lymph # (Auto) 0.7 L (1.5-3.5) 10^3/uL Wirt # (Auto) 0.7 (0.0-1.0) 10^3/uL Eos # (Auto) 0.1 (0.0-0.7) 10^3/uL Baso # (Auto) 0.0 (0.0-0.1) 10^3/uL Absolute Nucleated RBC 0.00 x10^3/uL Nucleated RBC % 0.0 /100WBC Sodium 141 (135-145) mmol/L Potassium 3.6 (3.5-5.0) mmol/L Chloride 103 (101-111) mmol/L Carbon Dioxide 29 (21-32) mmol/L Anion Gap 9.0 (6-13) BUN 7 (6-20) mg/dL Creatinine 0.6 (0.4-1.0) mg/dL Estimated GFR (MDRD) 99 (>89) Glucose 142 H (70-100) mg/dL Calcium 8.9 (8.5-10.3) mg/dL Total Bilirubin 0.9 (0.2-1.0) mg/dL AST 36 (10-42) IU/L ALT 72 H (10-60) IU/L Alkaline Phosphatase 59 (42-121) IU/L Total Protein 7.2 (6.7-8.2) g/dL Albumin 3.7 (3.2-5.5) g/dL Globulin 3.5 (2.1-4.2) g/dL Albumin/Globulin Ratio 1.1 (1.0-2.2) Lipase 93 H (22-51) U/L ABX Reporting Has patient been on IV antibiotics over the past 48 hours?: No Sepsis Event Note (H) - Evaluation Current Stage of Sepsis: Ruled out Assessment/Plan - Problem List (1) Pancreatitis Impression: / Patient report abdominal pain is better, but still report mild pain, and she is still complaining some nauseated, her lipase is 93 today, will continue intravenous IV fluids, continue anti-emesis as needed. pt tolerate diet. / Patient report abdominal pain is better, but she still complains nauseated and the headache, and a complain constipation for 2 days. Patient's lipase is running down to the 270 from over 4800 in the admission. Patient report she have abdominal pain after she started the Kava, Kava can affect the liver, can cause liver enzyme going up, also could affect to have pancreatitis. Kava has over 40 compounds, unknown which compounds could affect people to cause pancreatitis, patient reported she will stop take Kava. Continue intravenous of normal saline, continue with clear liquid diet we will advance diet as the patient tolerated, continue pain control, Continue lab mon itor and lipase monitor, Tylenol for headache as needed, started on bowel movement protocol Patient report this is a first-time she has pancreatitis, patient denies she have alcohol issue, she report she did take some supplement called Kava. home medication list pt took muscle relaxants zanaflex. Kava can cause Hepatic toxical and elevated liver enzyme. We will test Lipid panel, we will have bowel rest and intravenous IV fluids, lipase daily test, glucose check when patient is n.p.o. and vital signs check. Patient is a NPO now, will gradually advance patient's diet as tolerated (2) headache 03/02 Patient still complain headache, patient reported she have a chronic h eadache, she reported she usually takes [place]. it would be good control for her headache so we will resume patient home [place] for the patient, hopefully we could control patient headache, patient denies any focal neuro deficit, patient's headache is likely acute on chronic. 03/01 pt report she has chronic migraine headache,Patient had worsening headache after she was admitted to the hospital, with pancreatitis. we will start intravenous Tylenol as needed because of the patient nauseated with PO m edication. patient does not show any unilateral focal neurological deficit at this point. (3) Abdominal pain Conclusion/Plan: 03/02 Patient report abdominal pain is better, her lipase is down to 93 today, patient tolerated diet, continue pain control 03/01 Patient report abdominal pain is better, not like before squeezing pain in the abdomen, will continue pain control, continue intravenous of normal saline, continue lipase monitor Patient abdominal pain is likely secondary to acute pancreatitis, ultrasound of abdomen review resolved without acute cholecystitis or dilation of the common bile duct. the tail of the pancreas seems normal in the ultrasound. Plan, bowel rest, pain control, intravenous IV fluids (4) History of COPD Conclusion/Plan: 6 stable Patient has history of COPD, patient show slightly wheez, patient has a sats 92% on room air, unfortunately patient refused have chest x-ray , we will start with albuterol and duoneb with breathing treatment, consult with RT.We will start with patient home medications after verification by the pharmacy (5) HLD (hyperlipidemia) Conclusion/Plan: 6/3 Because patient has hyperlipidemia in the test, patient started on low dosage of Lipitor. Patient has a history of hyperlipidemia, will check lipid panel, will follow up the test study. pancreatitis can be caused by high level of triglycerides, we will followup the test result. (6) Chronic pain Conclusion/Plan: Patient has history of for chronic pain, we will use pain medication to control the pain in the abdomen (7)constipation pt report She had a 2 days no bowel movement, patient take opiates in the hospital, patient also take [place] in the home as her chronic pain, which also could affect the patient for bowel movement, discussed with pt and nurse, we will started with a bowel protocol. we will closely watch the patient if pt has bowel movement, will order meds if pt continue to have this problem Qualifiers: Chronicity: acute Pancreatitis type: unspecified pancreatitis type Acute pancreatitis complication: no infection or necrosis Qualified Code(s): K85.90 - Acute pancreatitis without necrosis or infection, unspecified (2) Abdominal pain Qualifiers: Abdominal location: upper abdomen, unspecified Qualified Code(s): R10.10 - Upper abdominal pain, unspecified
[2020-03-02] MEDS ORDERED: LACTULOSE 10 GM /15 ML UDC PO ONE (19:45)
[2020-03-02] MEDS: PRIMIDONE 50 MG TABLET PO PRN (19:48)
[2020-03-02] MEDS: ATORVASTATIN 10 MG TABLET PO SCH (20:31)
[2020-03-03] MEDS: SODIUM CHLORIDE FLUSH 0.9% 10 ML SYRINGE IVP SCH ×2 (00:32→07:50)
[2020-03-03] MEDS: HYDROcod/ACETAM 5/325 MG TABLET PO PRN ×3 (00:33→09:19)
[2020-03-03] MEDS: GABAPENTIN 100 MG CAPSULE PO PRN (00:33)
[2020-03-03 04:43] LABS: BASOPHILS % (AUTO) 0.4 %; EOSINOPHILS # (AUTO) 0.2 10^3/uL (0.0-0.7); EOSINOPHILS % (AUTO) 2.7 %; HGB - HEMOGLOBIN 11.5 g/dL (12.0-16.0); LYMPHOCYTES # (AUTO) 1.1 10^3/uL (1.5-3.5); LYMPHOCYTES % (AUTO) 14.5 %; MEAN CORPUSCULAR HEMOGLOBIN 30.3 pg (27.0-31.0); MEAN CORPUSCULAR HGB CONC 32.3 g/dL (32.0-36.0); MEAN CORPUSCULAR VOLUME 93.7 fL (81.0-99.0); MEAN PLATELET VOLUME 10.8 fL (7.9-10.8); MONOCYTES % (AUTO) 13.4 %; NEUTROPHILS # (AUTO) 5.1 10^3/uL (1.5-6.6); NEUTROPHILS % (AUTO) 68.6 %; PLT - PLATELET COUNT 187 10^3/uL (130-450); RED CELL DISTRIBUTION WIDTH 12.5 % (12.0-15.0); WHITE BLOOD COUNT 7.4 x10^3/uL (4.8-10.8)
[2020-03-03 04:58] LABS: ALBUMIN 3.5 g/dL (3.2-5.5); BILIRUBIN,TOTAL 0.4 mg/dL (0.2-1.0); CALCIUM 8.9 mg/dL (8.5-10.3); CREATININE 0.6 mg/dL (0.4-1.0); TOTAL PROTEIN 6.9 g/dL (6.7-8.2)
[2020-03-03] MEDS: PANTOPRAZOLE 40 MG TABLET PO SCH (05:59)
[2020-03-03] MEDS ORDERED: ACETAMINOPHEN 325 MG TABLET PO PRN (07:19)
[2020-03-03] MEDS: polyethylene glycoL 3350 17 GM PACKET PO SCH (07:50)
[2020-03-03] MEDS: ENOXAPARIN 40 MG/0.4 ML SYRINGE SUBQ SCH (07:50)
[2020-03-03] MEDS: SACCHAROMYCES BOULARDII 250 MG CAPSULE PO SCH (07:50)
[2020-03-03] MEDS ORDERED: POTASSIUM CHLORIDE 20 MEQ TABLET PO ONE (08:00)
[2020-03-03 08:25] VITALS: BP 140/80
--- NOTE | 2020-03-03 08:33 | Discharge Plan ---
Discharge Plan Problem Reviewed?: Yes Disposition: Home, Self Care Condition: Stable Prescriptions: Atorvastatin [Lipitor] 10 mg PO QPM #10 tablet Diet: Regular Activity Restrictions: Activity as Tolerated Shower Restrictions: No (fall precaution) Instruction Topics: Pancreatitis, Meds Cholesterol, Atorvastatin tablets Health Concerns: pancreatitis and hyperlipidemia Plan of Treatment: Your acute pancreatitis is resolved now. As you mentioned, your acute pancreatitis was likely caused by your dietary supplements such as Kava, advise you hold these home dietary and herbal supplements, and you agreed you will hold. Your triglycerides, cholesterol and LDL level had slight elevated, lower dosage of Lipitor is prescribed for you. Advised and Discussed with you about your health life style, safely exercise, and continue followup your PCP to monitor and manage your cholesterol level. Your liver enzyme was elevated in the admission, now it become normal, advised and discussed with you about safely taking your home medications. Care Goals: stabilization and improvement/resolve of your medical conditions. Assessment: discussed with you about the care plan, you understood. Additional Instructions or Follow Up instructions: you may followup your PCP in one week, and have CMP and lipid panel test to monitor your liver enzyme and lipid level. Should your symptoms return or worsen, you may present ER or call 911 for help. No Smoking: If you smoke, Please STOP! Call for help. Follow-up with: Roseline Rogers MD [Primary Care Provider] -
--- NOTE | 2020-03-03 08:56 | DISCHARGE SUMMARY ---
Discharge Summary Admit Date: 02/29/20 Discharge Date: 03/03/20 Discharging Provider: Jarret keyes Primary Care Provider: Russell Saldana Condition at Discharge: Stable Discharge Disposition: 01 Home, Self Care Discharge Facility Name: home - DIAGNOSES Admission Diagnoses: (1) Pancreatitis (2) Abdominal pain (3) History of COPD (4) HLD (hyperlipidemia) (5) Chronic pain Discharge Diagnoses with Status of Each Condition: (1) Pancreatitis resolved. lipase is normal. pt denies abdominal pain. pt tolerate diet without abdominal, nausea or vomiting. advise pt hold her home dietary supplements such as Kava, pt agreed. pt refused any change to her home meds. Pt had two NSAIDs PRN and Tylenol PRN, she state she took her home meds for long time and refused for any adjust. (2) headache chronic (3) Abdominal pain resolved (4) History of COPD stable, 98% sats on room air. (5) HLD (hyperlipidemia) pt has slight elevated triglycerides, cholesterol, and LDL. pt is prescribed lower dosage of lipitor. (6) Chronic pain chronic (7)constipation resolved. (8)elevated liver enzyme resolved. pt refused any change to her home medications. Pt had two NSAIDs PRN and Tylenol PRN, she state she took her home meds for long time, and refused for any adjust. advise pt hold her home dietary supplements such as Kava, pt agreed. - HPI History of Present Illness: This is a 89- years old female with a past medical history significant for hyperlipidemia, hypothyroidism, COPD, chronic back pain, psoriasis, who Who presents ER for complaint of abdominal pain. patient report she had onset of abdominal pain early this morning in the home, patient report there was nothing unusual before she started to have abdominal pain. She reported nauseated, and a small amount vomiting, no diarrhea. She reports abdominal pain located in up GI then radiated to bilateral abdomen.She denies fever chill, chest pain, difficulty breathing without other complaints. In routine test lab Lipase is over 4800. Her total bilirubin, AST, ALT all elevated. Her ultrasound report was showing some perhaps sludge in the gallbladder but without stones or ductal dilatation, and no signs of acute cholecystitis. The pancreatic duct appeared normal. pt refused to have CXR. pt report her pain is controlled now after pt was given pain medications in ER. pt is admitted for further medical management. - HOSPITAL COURSE Hospital Course: Patient was admitted for abdominal pain, patient was found her lipase was over 4800. pt was diagnosis of pancreatitis. patient was treated with bowel rest, intravenous of IV fluids. After treatment, patient abdominal pain was resolved, patient tolerated diet, without nausea vomiting,Lipase become normal. pt also w as found to have HLD. pt is prescribed lipitor. The detail hospital course is as the below. (1) Pancreatitis resolved. lipase is normal. pt denies abdominal pain. pt tolerate diet without abdominal, nausea or vomiting. advise pt hold her home dietary supplements such as Kava, pt agreed. pt refused any change to her home meds. Pt had two NSAIDs PRN and Tylenol PRN, she state she took her home meds for long time and refused for any adjust. (2) headache chronic (3) Abdominal pain resolved (4) History of COPD stable, 98% sats on room air. (5) HLD (hyperlipidemia) pt has slight elevated triglycerides, cholesterol, and LDL. pt is prescribed lower dosage of lipitor. (6) Chronic pain chronic (7)constipation resolved. (8)elevated liver enzyme resolved. pt refused any change to her home medications. Pt had two NSAIDs PRN and Tylenol PRN, she state she took her home meds for long time, and refused for any adjust. - ALLERGIES Allergies/Adverse Reactions: Allergies Allergy/AdvReac Type Severity Reaction Status Date / Time aspirin Allergy Nausea Verified 04/02/19 11:20 Penicillins Allergy vomiting, Verified 12/28/17 10:37 visual changes - MEDICATIONS Home Medications: Ambulatory Orders Medication Instructions Recorded Confirmed Acetaminophen [Tylenol Extra 500 mg PO QID PRN 02/29/20 02/29/20 Strength] Gabapentin 100 mg PO TID PRN 02/29/20 03/01/20 Ibuprofen [Advil] 200 mg PO DAILY PRN 02/29/20 02/29/20 Naproxen [Naprosyn] 500 mg PO BID PRN 02/29/20 03/01/20 Primidone [Mysoline] 50 mg PO BID PRN 02/29/20 02/29/20 Tizanidine HCl 4 mg PO DAILY PRN 02/29/20 02/29/20 Atorvastatin [Lipitor] 10 mg PO QPM #10 tablet 03/03/20 - PHYSICAL EXAM AT DISCHARGE General Appearance: positive: No acute distress, Alert. negative: Lethargic Eyes Bilateral: positive: Normal inspection, PERRL, No lid inflammation ENT: positive: ENT inspection nml, Pharynx nml, No signs of dehydration. negative: Purulent nasal drainage Neck: positive: Nml inspection, Thyroid nml, Trachea midline. negative: Thyromegaly, Stiff neck, Tracheal deviation Respiratory: positive: Chest non-tender, No respiratory distress, Breath sounds nml. negative: Wheezes, Rales, Rhonchi Cardiovascular: positive: Regular rate & rhythm, No murmur, No gallop. negative: Tachycardia, Bradycardia, Systolic murmur, Diastolic murmur Peripheral Pulses: positive: 2+ Abdomen: positive: Non-tender, No organomegaly, Nml bowel sounds, No distention. negative: Tenderness, Guarding, Rebound Back: positive: Nml inspection. negative: CVA tenderness (R), CVA tenderness (L) Skin: positive: Color nml, No rash, Warm, Dry. negative: Cyanosis, Diaphoresis, Pallor Extremities: positive: Non-tender, Full ROM, Nml appearance. negative: Calf tenderness, Shelly's sign/cords Neurologic/Psychiatric: positive: Oriented x3, Motor nml, Sensation nml. negative: Weakness, Sensory loss, Facial droop, Slurred/abnml speech, Depressed mood/affect - LABS Result Diagrams: 03/03/20 04:10 03/03/20 04:10 - SEPSIS Current Stage of Sepsis: Ruled out - FOLLOW UP Follow Up: Your acute pancreatitis is resolved now. As you mentioned, your acute pancreatitis was likely caused by your dietary supplements such as Kava, advise you hold these home dietary and herbal supplements, and you agreed you will hold. Your triglycerides, cholesterol and LDL level had slight elevated, lower dosage of Lipitor is prescribed for you. Advised and Discussed with you about your health life style, safely exercise, and continue followup your PCP to monitor and manage your cholesterol level. Your liver enzyme was elevated in the admission, now it become normal, advised and discussed with you about safely taking your home medications. you declined to have any adjustment. you may followup your PCP in one week, and have CMP and lipid panel test to monitor your liver enzyme and lipid level. Should your symptoms return or worsen, you may present ER or call 911 for help. - TIME SPENT Time Spent in Discharge (Minutes): 30
== END 2020-03-03 12:45 | disposition home or self-care (01) | DRG 440 ==
LOC: EDUNIT# → ED 04:59 → MS2 08:56
PROVIDERS: ADMIT Nurse Practitioner Gerontology; ATTEND Nurse Practitioner Gerontology
DX: K85.90 Acute pancreatitis without necrosis or infection, unspecified (principal); T50.995A Adverse effect of other drugs, medicaments and biological substances, initial encounter; Y92.009 Unspecified place in unspecified non-institutional (private) residence as the place of occurrence of the external cause; E78.00 Pure hypercholesterolemia, unspecified; J44.9 Chronic obstructive pulmonary disease, unspecified; E03.9 Hypothyroidism, unspecified; G89.29 Other chronic pain; R51 Headache; E78.5 Hyperlipidemia, unspecified; K59.00 Constipation, unspecified; M54.9 Dorsalgia, unspecified; M19.90 Unspecified osteoarthritis, unspecified site; Z91.14 Patient's other noncompliance with medication regimen; Z87.442 Personal history of urinary calculi; Z79.1 Long term (current) use of non-steroidal anti-inflammatories (NSAID)
CPT/HCPCS: 36415; 76705; 80053; 80061; 81001; 83690; 84443; 84484; 85025; 93005; 96361; 96374; 96375; 96376; 99285; A9270; J0131; J1170; J1650; 80320; 81003; 83721; 87086

== ENCOUNTER 2020-03-16 08:46 | Inpatient (IN) | payer MEDICARE, MEDICAID ==
[2020-03-16] MEDS ORDERED: MORPHINE 2 MG/ML CARPUJECT IVP STA ×3 (09:11→14:05)
[2020-03-16] MEDS ORDERED: ONDANSETRON 4 MG/2 ML VIAL IVP STA (09:11)
[2020-03-16] MEDS ORDERED: SODIUM CHLORIDE 0.9% 1,000 ML IV STA ×2 (09:11→09:27)
[2020-03-16 09:15] LABS: BASOPHILS % (AUTO) 0.2 %; EOSINOPHILS # (AUTO) 0.2 10^3/uL (0.0-0.7); EOSINOPHILS % (AUTO) 1.7 %; HGB - HEMOGLOBIN 14.6 g/dL (12.0-16.0); LYMPHOCYTES # (AUTO) 1.7 10^3/uL (1.5-3.5); LYMPHOCYTES % (AUTO) 12.5 %; MEAN CORPUSCULAR HEMOGLOBIN 30.9 pg (27.0-31.0); MEAN CORPUSCULAR HGB CONC 32.6 g/dL (32.0-36.0); MEAN CORPUSCULAR VOLUME 94.7 fL (81.0-99.0); MEAN PLATELET VOLUME 10.8 fL (7.9-10.8); MONOCYTES # (AUTO) 1.1 10^3/uL (0.0-1.0); MONOCYTES % (AUTO) 8.3 %; NEUTROPHILS # (AUTO) 10.3 10^3/uL (1.5-6.6); NEUTROPHILS % (AUTO) 76.9 %; PLT - PLATELET COUNT 302 10^3/uL (130-450); RED BLOOD COUNT 4.73 10^6/uL (4.20-5.40); RED CELL DISTRIBUTION WIDTH 12.3 % (12.0-15.0); WHITE BLOOD COUNT 13.4 x10^3/uL (4.8-10.8)
--- NOTE | 2020-03-16 09:18 | ED Physician Documentation ---
PD HPI ABD PAIN - Stated complaint Stated Complaint: ABD PX - Chief complaint Chief Complaint: Abd Pain - History obtained from History obtained from: Patient, Family - History of Present Illness Timing - onset: Enter time (629) Timing - duration: Hours Timing - details: Gradual onset, Still present Quality: Sharp, Pain Location: Epigastric Improved by: Laying still Worsened by: Eating, Moving, Breathing, Position, Palpation Associated symptoms: Nausea, Vomiting Similar symptoms before: Diagnosis (pancreatitis) Recently seen: Admitted - Additional information Additional information: 69-year-old female with a history of pancreatitis was recently admitted in the hospital. She had no evidence of gallstone pancreatitis and her pancreatitis was attributed possibly to the use of kava. She did discontinue the use of this and this morning at 630 she awoke again with pain and nausea. The pain is severe and she has come back to the emergency department. She last ate ice cream at about midnight. Review of Systems Constitutional: denies: Fever Eyes: denies: Decreased vision Ears: denies: Ear pain Nose: denies: Rhinorrhea / runny nose, Congestion Throat: denies: Sore throat Cardiac: denies: Chest pain / pressure, Palpitations Respiratory: denies: Dyspnea, Cough GI: reports: Abdominal Pain, Nausea. denies: Vomiting, Constipation, Diarrhea : denies: Dysuria, Frequency Skin: denies: Rash Musculoskeletal: reports: Back pain. 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 CARPENTER: None : Kidney stones HEENT: Other Psych: None Musculoskeletal: Osteoarthritis, Chronic back pain Derm: Eczema, Psoriasis - Past Surgical History Past Surgical History: Yes /APPRENTICE CARPENTER: Hysterectomy, Oophrectomy, Breast reduction HEENT: Tonsil/Adenoidectomy - Present Medications Home Medications: Ambulatory Orders Medication Instructions Recorded Confirmed Acetaminophen [Tylenol Extra 500 mg PO QID PRN 02/29/20 02/29/20 Strength] Gabapentin 100 mg PO TID PRN 02/29/20 03/01/20 Ibuprofen [Advil] 200 mg PO DAILY PRN 02/29/20 02/29/20 Naproxen [Naprosyn] 500 mg PO BID PRN 02/29/20 03/01/20 Primidone [Mysoline] 50 mg PO BID PRN 02/29/20 02/29/20 Tizanidine HCl 4 mg PO DAILY PRN 02/29/20 02/29/20 Atorvastatin [Lipitor] 10 mg PO QPM #10 tablet 03/03/20 - Allergies Allergies/Adverse Reactions: Allergies Allergy/AdvReac Type Severity Reaction Status Date / Time aspirin Allergy Nausea Verified 03/16/20 08:51 Penicillins Allergy vomiting, Verified 03/16/20 08:51 visual changes - Social History Does the pt smoke?: No Smoking Status: Never smoker Does the pt drink ETOH?: Yes Does the pt have substance abuse?: No - Immunizations Immunizations are current?: Yes - POLST Patient has POLST: No PD ED PE NORMAL - Vitals Vital signs reviewed: Yes (tachy and with diastolic hypertension mild) - General General: Alert and oriented X 3, Well developed/nourished, Other (overweight 69 y/o female with a short temper appears to be in pain ) - HEENT HEENT: Atraumatic, PERRL, EOMI - Neck Neck: Supple, no meningeal sign, No bony TTP - Cardiac Cardiac: No murmur, Other (tachy to 110) - Respiratory Respiratory: No respiratory distress, Clear bilaterally - Abdomen Abdomen: Soft, Other (obese with epigastric tenderness with mild garding. There is no other specific tenderness. ) - Back Back: No CVA TTP, No spinal TTP - Derm Derm: Normal color, Warm and dry, No rash - Extremities Extremities: No deformity, No tenderness to palpate, No edema, No calf tenderness / cord - Neuro Neuro: Alert and oriented X 3, steam gigger 2-12 intact, No motor deficit, No sensory deficit, Normal speech Eye Opening: Spontaneous Motor: Obeys Commands Verbal: Oriented GCS Score: 15 - Psych Psych: Normal mood, Normal affect Results - Vitals Vitals: Vital Signs - 24 hr 03/16/20 03/16/20 08:51 10:54 Temperature 36.4 C L Heart Rate 103 H 98 Respiratory 19 19 Rate Blood Pressure 107/88 H 149/101 H O2 Saturation 96 97 Oxygen O2 Source Room air - Labs Labs: Laboratory Tests 03/16/20 03/16/20 03/16/20 09:05 09:05 10:33 WBC 13.4 H RBC 4.73 Hgb 14.6 Hct 44.8 MCV 94.7 MCH 30.9 MCHC 32.6 RDW 12.3 Plt Count 302 MPV 10.8 Neut # (Auto) 10.3 H Lymph # (Auto) 1.7 Armstrong # (Auto) 1.1 H Eos # (Auto) 0.2 Baso # (Auto) 0.0 Absolute Nucleated RBC 0.00 Nucleated RBC % 0.0 Sodium 140 Potassium 4.0 Chloride 102 Carbon Dioxide 29 Anion Gap 9.0 BUN 20 Creatinine 0.7 Estimated GFR (MDRD) 83 L Glucose 150 H Calcium 10.1 Total Bilirubin 0.8 AST 165 H ALT 112 H Alkaline Phosphatase 71 Total Protein 8.3 H Albumin 4.5 Globulin 3.8 Albumin/Globulin Ratio 1.2 Lipase > 4800 H Urine Color YELLOW Urine Clarity CLEAR Urine pH 6.0 Ur Specific [place] 1.015 Urine Protein NEGATIVE Urine Glucose (UA) NEGATIVE Urine Ketones NEGATIVE Urine Occult Blood MODERATE H Urine Nitrite NEGATIVE Urine Bilirubin NEGATIVE Urine Urobilinogen 0.2 (NORMAL) Ur Leukocyte Esterase NEGATIVE Urine RBC 0-5 Urine WBC 0-3 Ur Squamous Epith Cells MOD Squamous H Urine Bacteria Few Ur Microscopic Review INDICATED Urine Culture Comments NOT INDICATED - Rads (name of study) CT ab/pel w Radiology: Prelim report reviewed (Impression: 1. Multiple small pulmonary nodules are present at each lung base. This was previously also identified during CT scanning on 07/29/2019. Please correlate clinically for etiology of this abnormality. Both granulomatous disease and multifocal stable metastatic disease could produce thi), EMP read indepedently, See rad report Procedures - Bedside sono Bedside sono by EMP: With use of bedside ultrasound the gallbladder is imaged it does appear distended there are no obvious stones there is no obvious pericholecystic fluid. It is sonographically tender but not the source of the patient's pain. - IVC sono (time) 0925 Bedside IVC sono: IVC measures (cm) (0.96), Dehydration (est 1-2 liter deficit) PD MEDICAL DECISION MAKING - ED course Complexity details: reviewed old records, reviewed results, re-evaluated patient, considered differential, d/w patient, d/w family ED course: 69-year-old female with a history of pancreatitis recently admitted has developed symptoms again and today her lipase is again over 4800 her alkaline phosphatase and bilirubin are normal and a CT scan of the abdomen and pelvis is obtained with results below. Impression: 1. Multiple small pulmonary nodules are present at each lung base. This was previously also identified during CT scanning on 07/29/2019. Please correlate clinically for etiology of this abnormality. Both granulomatous disease and multifocal stable metastatic disease could produce this appearance. 2 Asymmetric left-sided breast tissue, with only partial visualization of the breast parenchyma. Please correlate for whether a mass lesion at the left breast could be present. 3 Note is made of no sign of pancreatic duct distention or gallstones within the gallbladder lumen but there is acute pancreatitis involving the pancreatic head, neck and body and to a minimal degree the panc reatic tail. Etiology is uncertain. I did question the patient about her left breast she states that she has had a mammogram done on the left breast last year prior to having surgery done for tumors in her chest. Her impression of the tumors in her chest where they were cancerous surgically removed and her tumor markers have come down. Her oncologist was pleased with the result. She has had multiple pulmonary nodules that are being followed and they have been stable. Today in the emergency department she has relief with use of intravenous morphine and Zofran. She is administered intravenous saline and will need admission for bowel rest and pain control. Departure - Departure Disposition: [facility] DC/Mine Clinical Impression: Pancreatitis Qualifiers: Chronicity: acute Pancreatitis type: unspecified pancreatitis type Acute pavon creatitis complication: no infection or necrosis Qualified Code(s): K85.90 - Acute pancreatitis without necrosis or infection, unspecified Condition: Stable
[2020-03-16] MEDS ORDERED: IOVERSOL 320 100 ML VIAL IVP ONE ×2 (09:22→16:56)
[2020-03-16 10:21] LABS: ALBUMIN 4.5 g/dL (3.2-5.5); ALBUMIN/GLOBULIN RATIO 1.2 (1.0-2.2); ALKALINE PHOSPHATASE 71 IU/L (42-121); ALT ALANINE AMINOTRANSFERASE 112 IU/L (10-60); AST ASPARTATE AMINOTRANSFERASE 165 IU/L (10-42); BILIRUBIN,TOTAL 0.8 mg/dL (0.2-1.0); BUN - BLOOD UREA NITROGEN 20 mg/dL (6-20); CALCIUM 10.1 mg/dL (8.5-10.3); CARBON DIOXIDE - CO2 29 mmol/L (21-32); CHLORIDE 102 mmol/L (101-111); CREATININE 0.7 mg/dL (0.4-1.0); GLUCOSE 150 mg/dL (70-100); LIPASE > 4800 U/L (22-51); SODIUM 140 mmol/L (135-145); TOTAL PROTEIN 8.3 g/dL (6.7-8.2)
[2020-03-16 10:42] LABS: BILIRUBIN,URINE NEGATIVE (NEGATIVE); GLUCOSE, URINE (UA) NEGATIVE (NEGATIVE); KETONES,URINE (UA) NEGATIVE (NEGATIVE); LEUKOCYTE ESTERASE, URINE NEGATIVE (NEGATIVE); NITRITE,URINE NEGATIVE (NEGATIVE); OCCULT BLOOD,URINE MODERATE (NEGATIVE); PROTEIN,URINE NEGATIVE (NEGATIVE); UROBILINOGEN,URINE 0.2 (NORMAL) E.U./dL (NORMAL)
[2020-03-16 10:44] LABS: CLARITY,URINE CLEAR (CLEAR)
[2020-03-16 10:55] LABS: RBC,URINE 0-5 /HPF (0-5); SQUAMOUS EPITHELIAL CELL,UR MOD Squamous (<= Few)
[2020-03-16 10:56] LABS: BACTERIA,URINE Few /HPF (None Seen)
--- NOTE | 2020-03-16 12:01 | CT Report ---
PROCEDURE: Abdomen/Pelvis W INDICATIONS: pancreatitis CONTRAST: IV CONTRAST: Optiray 320 ml: 100 PO CONTRAST: *NO PO CONTRAST TECHNIQUE: After the administration of oral and intravenous contrast, 5 mm thick sections acquired from the diap hragms to the symphysis. 5 mm thick coronal and sagittal reformats were acquired. For radiation dos e reduction, the following was used: automated exposure control, adjustment of mA and/or kV accordin g to patient size. COMPARISON: Prior abdominal ultrasound 02/29/2020 reviewed, 04/12/2018 CT abdomen/pelvis, 07/29/[address] FINDINGS: Image quality: Excellent. ABDOMEN: Lung bases: Lung bases are abnormal with scattered small rounded nodules largest of which included i n the [id number] 6 mm. A number of these clearly were present on prior CT scanning of the chest . Heart size is normal. Note is made of asymmetric left-sided breast tissue, incompletely e valuated. Solid organs: Liver and spleen are normal in size and enhancement. Gallbladder appears normal Bili sidney system is non dilated. Pancreas enhances with indistinct margination and peripancreatic edema is present, consistent with pancreatitis extending along the pancreatic head, neck, body and to a lesse r degree the pancreatic tail. No abnormal peripancreatic fluid collection or ductal distention is fou nd.. No adrenal nodules. Kidneys demonstrate normal size and enhancement, without hydronephrosis bu t there are bilateral renal calculi the largest of which appears abnormal left renal pelvis measuring up to 6 x 9 mm.. Peritoneum and bowel: Bowel loops demonstrate normal wall thickness and caliber. No free fluid or a ir. Nodes and vessels: No retroperitoneal or mesenteric adenopathy by size criteria. Aorta and inferior vena cava are normal in size. Miscellaneous: No ventral hernias. PELVIS: Genitourinary: Bladder wall thickness is normal. Miscellaneous: No inguinal hernias or adenopathy. Bones: No suspicious bony lesions. No vertebral body compression fractures. IMPRESSION: 1. Multiple small pulmonary nodules are present at each lung base. This was previously also identifie d during CT scanning 07/29/2019. Please correlate clinically for etiology of this abnormality. Both g ranulomatous disease and multifocal stable metastatic disease could produce this appearance. 2. Asymmetric left-sided breast tissue, with only partial visualization of the breast parenchyma. Ple ase correlate for whether a mass lesion at the left breast could be present. 3. Note is made of no sign of pancreatic duct distention or gallstones within the gallbladder lumen b ut there is acute pancreatitis involving the pancreatic head, neck and body and to a minimal degree t he pancreatic tail. Etiology is uncertain. Reviewed by: Antonio Cook MD on 03/16/2020 10:59 AM AVNI Approved by: Antonio Cook MD on 03/16/2020 10:59 AM AKJAELYN Station ID: [id number]
[2020-03-16] MEDS ORDERED: MORPHINE 2 MG/ML CARPUJECT IVP PRN (12:54)
[2020-03-16] MEDS ORDERED: SODIUM CHLORIDE FLUSH 0.9% 10 ML SYRINGE IVP PRN (12:54)
[2020-03-16] MEDS ORDERED: oxyCODONE 5 MG TABLET PO PRN (12:54)
[2020-03-16] MEDS ORDERED: SODIUM CHLORIDE 0.9% 1,000 ML IV SCH (13:00)
--- NOTE | 2020-03-16 13:04 | HISTORY & PHYSICAL EXAMINATION ---
Chief Complaint - Chief Complaint Chief Complaint: abdominal pain History of Present Illness - Admitted From Admitted From:: ER - History Obtained From Records Reviewed: [facility] History obtained from: pt - History of Present Illness HPI Comment/Other: This is a 69-years old female with a past medical history significant for hyperlipidemia, hypothyroidism, COPD, chronic back pain, psoriasis, pancreatitis, multiple pulmonary nodules and followup with her oncologist, who Who presents ER for complaint of abdominal pain. Patient was admitted for pavon creatitis about 2 weeks ago. at the time patient report he take Kava supplemental medicine. she reported after she took Kava then she have abdominal pain, but today she denies she take any more. Today she reports she took 2 anti- allergy medicine bought [facility] on last night, Then she had abdominal pain on today morning. she state "I will never take any more all these meds again." she report her pain located at upper quadrant. The pain is like squeezing and similar with last time and does not radiate to other locations. On the last discharge, pt refused any change to her home meds. Pt had two NSAIDs PRN and Tylenol PRN, she state she took her home meds for long time and refused for any adjust. pt's lab test in the last time showed HLD, but pt stated to nurse she will not take any new prescribed meds. Patient reported she followed with her oncologist for her pulmonary nodule. she reported her surgeon removed her left upper lobe big nodule in the chest on last year. she will have PET scan in this April which was scheduled by her oncologist and she will follow-up with her oncologist. In routine test lab Lipase is over 4800. Her total bilirubin, AST, ALT all slightly were elevated. CAT scan of abdomen/pelvis Show multiple small nodules in the bilateral lung base, No sign of gallstone or pancreatic duct dilation, ther is acute pancreatitis involving pancreas head, neck and body. she denies chest pain, fever, chill, shortness of breath. pt is admitted for further medical management. 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 her father at age 91 due to age related multiple medical problems Social History Notes: Patient smoke half of a pack per day for many years she quit in September 2013, she drink an occatinal glass of wine, denies any drug use. 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 [email or web address], - POLST Patient has POLST: No Meds/Allgy - Home Medications Home Medications: Ambulatory Orders Medication Instructions Recorded Confirmed Acetaminophen [Tylenol Extra 500 - 1,000 mg PO TID PRN 02/29/20 03/16/20 Strength] Gabapentin 100 mg PO TID PRN 02/29/20 03/16/20 Ibuprofen [Advil] 200 mg PO DAILY PRN 02/29/20 03/16/20 Naproxen [Naprosyn] 500 mg PO BID PRN 02/29/20 03/16/20 Primidone [Mysoline] 50 mg PO BID PRN 02/29/20 03/16/20 Tizanidine HCl 4 mg PO DAILY PRN 02/29/20 03/16/20 Atorvastatin [Lipitor] 10 mg PO QPM #10 tablet 03/03/20 03/16/20 - Allergies Allergies/Adverse Reactions: Allergies Allergy/AdvReac Type Severity Reaction Status Date / Time aspirin Allergy Nausea Verified 03/16/20 08:51 Penicillins Allergy vomiting, Verified 03/16/20 08:51 visual changes Review of Systems - Constitutional Constitutional: denies: Fatigue, Fever, Chills, Malaise, Weakness, Poor appetite, Diaphoresis, Night sweats - Eyes Eyes: denies: Pain, Blurred vision, Spots in vision, Field loss, Vision loss, Dipolpia - Ears, Nose & Throat Ears, Nose & Throat: denies: Ear pain, Hearing loss, Hearing aids, Vertigo, Nasal discharge, Nosebleeds, Nasal obstruction, Nasal congestion, Postnasal drainage, Sore throat, Mouth lesions - Cardiovascular Cariovascular: denies: Irregular heart rate, Palpitations, Chest pain, Edema, Lightheadedness, Syncope, Exertional dyspnea, Decr. exercise tolerance - Respiratory Respiratory: denies: Cough, Sputum production, Wheezing, Snoring, Hemoptysis, Orthopnea, SOB at rest, SOB with exertion - Gastrointestinal Gastrointestinal: reports: Abdominal pain, Nausea. denies: Abdominal distention, Constipation, Diarrhea, Change in bowel habits, Rectal bleeding, Black stools, Bloody stools, Vomiting, Bile emesis, Christopher blood emesis, Coffee grounds emesis, Reflux/heartburn - Genitourinary Genitourinary: denies: Dysuria, Frequency, Urgency, Hematuria, Incontinence, Flank pain, Nocturia, Urethral discharge - Musculoskeletal Musculoskeletal: denies: Muscle pain, Back pain, Muscle aches, Stiffness, Limited range of motion, Muscle weakness, Gout, Joint pain - Integumentary Integumentary: denies: Rash, Pruritis, Lesions, Dryness, Lumps, Acne, Pigment changes, Nail changes - Neurological Neurological: denies: General weakness, Focal weakness, Headache, Dizziness, Numbness, Memory problems, Pre-existing deficit, Abnormal gait, Seizures, Incoordination, Slurred speech - Psychiatric Psychiatric: denies: Depression, Anxiety, Suicidal, Delusions, Hallucinations, Homicidal - Endocrine Endocrine: denies: Polyuria, Polydypsia, Polyphagia, Intolerance to cold - Hematologic/Lymphatic Hematologic/Lymphatic: denies: Anemia, Bruising, Petechiae, Blood clots, Lymphadenopathy, Bleeding tendencies Exam - Vital Signs Vital Signs: Vital Signs x48h Temp Pulse Resp BP Pulse Ox 03/16/20 10:54 98 19 149/101 H 97 03/16/20 08:51 36.4 C L 103 H 19 107/88 H 96 - Physical Exam General Appearance: positive: Alert, Mild distress. negative: Lethargic Eyes Bilateral: positive: Normal inspection, PERRL, No lid inflammation ENT: positive: ENT inspection nml, Pharynx nml, No signs of dehydration. negative: Purulent nasal drainage Neck: positive: Nml inspection, Thyroid nml, No JVD, Trachea midline. negative: Thyromegaly, Stiff neck, Tracheal deviation Respiratory: positive: Chest non-tender, No respiratory distress. negative: Wheezes, Rales, Rhonchi Cardiovascular: positive: Regular rate & rhythm, No murmur, No gallop. negative: Irregularly irregular, Tachycardia, Bradycardia, Systolic murmur, Dorcas stolic murmur Peripheral Pulses: positive: 2+ Abdomen: positive: Non-tender, No organomegaly, Nml bowel sounds, No distention, Tenderness. negative: Guarding, Rebound Back: positive: Nml inspection. negative: CVA tenderness (R), CVA tenderness (L) Skin: positive: Color nml, No rash, Warm, Dry. negative: Cyanosis, Diaphoresis, Pallor Extremities: positive: Non-tender, Full ROM, Nml appearance. negative: Calf tenderness, Shelly's sign/cords Neurologic/Psychiatric: positive: Oriented x3, Motor nml, Sensation nml, Mood/affect nml. negative: Weakness, Sensory loss, Facial droop, Slurred/abnml speech, Depressed mood/affect Sepsis Event Note (H) - Evaluation Current Stage of Sepsis: Ruled out Conclusion/Plan - Problem List (1) Pancreatitis Conclusion/Plan: (1) Pancreatitis Conclusion/Plan: Patient repeat to have pancreatitis. Unfortunately she repeat to take supplement medicines again although she state she will not take any more these supplement meds. We will let pt have bowel rest and intravenous IV fluids, lipase daily test, glucose check when patient is n.p.o. and vital signs check. Patient is a NPO now, will gradually advance patient's diet as tolerated (2) Abdominal pain Conclusion/Plan: Patient abdominal pain is likely secondary to acute pancreatitis. Plan, bowel rest, pain control, intravenous IV fluids (3) History of COPD Conclusion/Plan: Patient has history of COPD. patient has a sats 96% on room air without respiratory distress. will monitor pt and adjust meds as needed. (4) HLD (hyperlipidemia) Conclusion/Plan: Patient has a history of hyperlipidemia, Patient has hyperlipidemia on the last time admission lab test, but the patient refused to take Lipitor. (5) Chronic pain Conclusion/Plan: Patient has history of for chronic pain, we will use pain medication to control the pain in the abdomen (6)pulmonary nodules Patient has a history of pulmonary nodule. she quitted her smoking in 2013, Her pulmonary nodule is small size, she will have the PET scan in this April, she states she will follow-up with her oncologist. Qualifiers: Chronicity: acute Pancreatitis type: unspecified pancreatitis type Acute pancreatitis complication: no infection or necrosis Qualified Code(s): K85.90 - Acute pancreatitis without necrosis or infection, unspecified - Lab Results Fish Bones: 03/16/20 09:05 03/16/20 09:05 Core Measures - Anticipated LOS I expect patient to be DC'd or transferred within 96 hours.: Yes - DVT/VTE - Prophylaxis VTE/DVT Device ordered at admit?: Yes VTE/DVT Prophylaxis med ordered at admit?: Yes
--- NOTE | 2020-03-16 13:56 | PHARMACY PROGRESS NOTE ---
- Best Possible Medication History Admit Date and Time: 03/16/20 1254 Processed by: Pharmacy Medication History completed: Yes Patient Interview: Completed Secondary Source(s): Pharmacy records, Insurance records As the person ultimately responsible for medication therapy, providers are able to order a medication from an existing home medication list in [facility] via the "Reconcile Routine" prior to Confirmation of that medication by legal support assistant. Such practice is discouraged except when the physician, in their clinical judgment, deems that a medical need exists for a medication without regard to previous use.
[2020-03-16] MEDS ORDERED: PRIMIDONE 50 MG TABLET PO PRN (14:52)
[2020-03-16] MEDS: SODIUM CHLORIDE 0.9% 1,000 ML IV SCH (15:57)
[2020-03-16] MEDS: MORPHINE 2 MG/ML CARPUJECT IVP PRN ×3 (15:57→21:34)
[2020-03-16] MEDS: SODIUM CHLORIDE FLUSH 0.9% 10 ML SYRINGE IVP SCH (15:57)
[2020-03-16] MEDS: ONDANSETRON 4 MG/2 ML VIAL IVP PRN (21:35)
[2020-03-17] MEDS: ZOLPIDEM 5 MG TABLET PO PRN ×2 (00:28→20:48)
[2020-03-17] MEDS: MORPHINE 2 MG/ML CARPUJECT IVP PRN ×7 (00:28→23:55)
[2020-03-17] MEDS: SODIUM CHLORIDE FLUSH 0.9% 10 ML SYRINGE IVP SCH ×3 (00:30→16:03)
[2020-03-17] MEDS: SODIUM CHLORIDE 0.9% 1,000 ML IV SCH ×3 (01:38→22:27)
[2020-03-17] MEDS: ONDANSETRON 4 MG/2 ML VIAL IVP PRN (05:06)
[2020-03-17 05:47] LABS: BASOPHILS % (AUTO) 0.2 %; EOSINOPHILS # (AUTO) 0.1 10^3/uL (0.0-0.7); EOSINOPHILS % (AUTO) 0.7 %; HGB - HEMOGLOBIN 12.2 g/dL (12.0-16.0); LYMPHOCYTES % (AUTO) 8.9 %; MEAN CORPUSCULAR HEMOGLOBIN 29.8 pg (27.0-31.0); MEAN CORPUSCULAR HGB CONC 31.4 g/dL (32.0-36.0); MEAN CORPUSCULAR VOLUME 95.1 fL (81.0-99.0); NEUTROPHILS # (AUTO) 8.7 10^3/uL (1.5-6.6); NEUTROPHILS % (AUTO) 80.8 %; PLT - PLATELET COUNT 255 10^3/uL (130-450); RED BLOOD COUNT 4.09 10^6/uL (4.20-5.40); RED CELL DISTRIBUTION WIDTH 12.8 % (12.0-15.0); WHITE BLOOD COUNT 10.8 x10^3/uL (4.8-10.8)
[2020-03-17 06:20] LABS: ALBUMIN 3.7 g/dL (3.2-5.5); ALBUMIN/GLOBULIN RATIO 1.1 (1.0-2.2); BILIRUBIN,TOTAL 0.8 mg/dL (0.2-1.0); CALCIUM 8.9 mg/dL (8.5-10.3); CREATININE 0.6 mg/dL (0.4-1.0); TOTAL PROTEIN 7.1 g/dL (6.7-8.2)
[2020-03-17] MEDS: ACETAMINOPHEN 325 MG TABLET PO PRN ×4 (07:03→23:55)
[2020-03-17] MEDS: PANTOPRAZOLE 40 MG TABLET PO SCH (07:03)
[2020-03-17] MEDS: GABAPENTIN 100 MG CAPSULE PO PRN ×3 (07:03→20:04)
[2020-03-17] MEDS ORDERED: SODIUM CHLORIDE 0.9% 1,000 ML IV SCH ×2 (08:26→13:56)
[2020-03-17] MEDS ORDERED: IPRATROPIUM 0.2 MG/ML NEB INH PRN (08:28)
[2020-03-17] MEDS ORDERED: LEVALBUTEROL 1.25 MG/3 ML NEB INH PRN (08:28)
[2020-03-17 08:54] LABS: MUDS CUTOFF CONCENTRATIONS CUTOFF CONC BELOW:
[2020-03-17 09:08] LABS: AMPHETAMINE SCREEN,URINE NEGATIVE (NEGATIVE); BENZODIAZEPINES SCREEN, URINE NEGATIVE (NEGATIVE); COCAINE SCREEN URINE NEGATIVE (NEGATIVE); METHADONE SCREEN, URINE NEGATIVE (NEGATIVE); METHAMPHETAMINES SCREEN, URINE NEGATIVE (NEGATIVE); OPIATE SCREEN, URINE POSITIVE (NEGATIVE); OXYCODONE SCREEN, URINE NEGATIVE (NEGATIVE); PROPOXYPHENE SCREEN, URINE NEGATIVE (NEGATIVE); TRICYCLIC ANTIDEPRESSANT,URINE NEGATIVE (NEGATIVE)
[2020-03-17] MEDS: ENOXAPARIN 40 MG/0.4 ML SYRINGE SUBQ SCH (09:08)
[2020-03-17] MEDS ORDERED: PSEUDOEPHEDRINE 30 MG TABLET PO PRN (11:47)
[2020-03-17] MEDS ORDERED: LORATADINE 10 MG TABLET PO SCH (12:00)
--- NOTE | 2020-03-17 12:13 | PROVIDER PROGRESS NOTE ---
Subjective - Prog Note Date Prog Note Date: 03/17/20 - Subjective Pt reports feeling: Improved Subjective: Patient report she feels much better, abdominal pain is good control.Patient is O2 sats slightly decreases and patient has mild tachycardia on the morning, we ordered a chest x-ray, patient refused to have chest x-ray, patient has a history of COPD, unfortunately patient refused chest x-ray to assess her. This is a patient's second times to have pancreatitis in two weeks.In this two times of pancreatitis, we stop her home medication in the hospital with bowel rest and intravenous IV fluids, patient symptoms dramatically improved in the next day and her lipase is good down to close normally. Patient at this time she understand she wrongly takes some in the home, Either she take too many PRN medications in the home or she take some supplements medications in the home to cause her pancreatitis. patient had 7 medications at home but has 6 medication as needed, patient state she took the PRN medication as she needed. But she does not have a clear clues, how many times she took and how much dose that she took. She agree we will discuss with her one by one of her home meds, which one advise to keep and which one will be hold when she is discharged. she agreed she will not take any more supplemental medicines at home. Nurse still found she had KAVA supplement meds at her personal home meds package. really it is not clearly if pt is still taking Kava at home but she told me she did not take any more KAVA in the home when I assessed her and did HPI on yesterday. Pt is alert and oriented, so it is dependent on pt, if she listen medical advise. Current Medications - Current Medications Current Medications: Active Medications Acetaminophen (Tylenol) 650 mg PO Q4HR PRN PRN Reason: Pain 1 to 4 Last Admin: 03/17/20 07:03 Dose: 650 mg Documented by: Enoxaparin Sodium (Lovenox) 40 mg SUBQ DAILY [facility] Last Admin: 03/17/20 09:08 Dose: Not Given Documented by: Gabapentin (Neurontin) 100 mg PO TID PRN PRN Reason: Neuropathic Pain Last Admin: 03/17/20 07:03 Dose: 100 mg Documented by: Sodium Chloride (Normal Saline 0.9%) 1,000 mls @ 100 mls/hr IV .Q10H [facility] Last Admin: 03/17/20 09:11 Dose: 100 mls/hr Documented by: Ipratropium [place] (Atrovent) 0.5 mg INH RTQ4H PRN PRN Reason: Shortness of Air/Wheezing Levalbuterol HCl (Xopenex) 1.25 mg INH Q4H PRN PRN Reason: Shortness of Air/Wheezing Loratadine (Claritin) 10 mg PO DAILY [facility] Morphine Sulfate (Morphine (Carpuject)) 4 mg IVP Q2HR PRN PRN Reason: Pain 8 to 10 Last Admin: 03/17/20 11:47 Dose: 4 mg Documented by: Ondansetron HCl (Zofran Inj) 4 mg IVP Q6HR PRN PRN Reason: Nausea / Vomiting Last Admin: 03/17/20 05:06 Dose: 4 mg Documented by: Oxycodone HCl (Roxicodone) 10 mg PO Q4HR PRN PRN Reason: Pain 8 to 10 Pantoprazole Sodium (Protonix) 40 mg PO QDAC [facility] Last Admin: 03/17/20 07:03 Dose: 40 mg Documented by: Primidone (Mysoline) 50 mg PO BID PRN PRN Reason: [employer] Pseudoephedrine HCl (Sudafed) 30 mg PO Q6HR PRN PRN Reason: Cold Symptons Sodium Chloride (Normal Saline Flush 0.9%) 10 ml IVP PRN PRN PRN Reason: NEEDED PER PROVIDER ORDERS Sodium Chloride (Normal Saline Flush 0.9%) 10 ml IVP 0100,0900,1700 [facility] Last Admin: 03/17/20 09:11 Dose: Not Given Documented by: Zolpidem Tartrate (Ambien) 5 mg PO QPM PRN PRN Reason: Insomnia Last Admin: 03/17/20 00:28 Dose: 5 mg Documented by: Acetaminophen [Tylenol Extra Strength] 500 - 1,000 mg PO TID PRN 02/29/20 Gabapentin 100 mg PO TID PRN 02/29/20 Ibuprofen [Advil] 200 mg PO DAILY PRN 02/29/20 Naproxen [Naprosyn] 500 mg PO BID PRN 02/29/20 Primidone [Mysoline] 50 mg PO BID PRN 02/29/20 Tizanidine HCl 4 mg PO DAILY PRN 02/29/20 Objective - Vital Signs/Intake & Output Vital Signs: Vital Signs x48h Temp Pulse Resp BP Pulse Ox 03/17/20 07:59 115 H 18 126/83 H 93 03/17/20 05:00 37.4 C 113 H 16 131/75 H 93 Intake & Output: Intake & Output 03/14/20 03/15/20 03/16/20 03/17/20 23:59 23:59 23:59 23:59 Intake Total 2598.75 343.75 Balance 2598.75 343.75 - Objective General Appearance: positive: No acute distress, Alert. negative: Lethargic Eyes Bilateral: positive: Normal inspection, PERRL, No lid inflammation ENT: positive: ENT inspection nml, Pharynx nml, No signs of dehydration. negative: Purulent nasal drainage Neck: positive: Nml inspection, Thyroid nml, No JVD, Trachea midline. negative: Thyromegaly, Stiff neck, Tracheal deviation Respiratory: positive: Chest non-tender, No respiratory distress. negative: Wheezes, Rales Cardiovascular: positive: Regular rate & rhythm, No murmur, No gallop, Tachycardia. negative: Bradycardia, JVD present, Systolic murmur, Diastolic murmur - Lab Results Fish Bones: 03/17/20 05:25 03/17/20 05:25 Other Labs: Lab Results x24hrs 03/17/20 03/17/20 03/17/20 Range/Units 05:25 05:25 05:25 WBC 10.8 (4.8-10.8) x10^3/uL RBC 4.09 L (4.20-5.40) 10^6/uL Hgb 12.2 (12.0-16.0) g/dL Hct 38.9 (37.0-47.0) % MCV 95.1 (81.0-99.0) fL MCH 29.8 (27.0-31.0) pg MCHC 31.4 L (32.0-36.0) g/dL RDW 12.8 (12.0-15.0) % Plt Count 255 (130-450) 10^3/uL MPV 11.0 H (7.9-10.8) fL Neut # (Auto) 8.7 H (1.5-6.6) 10^3/uL Lymph # (Auto) 1.0 L (1.5-3.5) 10^3/uL [place] # (Auto) 1.0 (0.0-1.0) 10^3/uL Eos # (Auto) 0.1 (0.0-0.7) 10^3/uL Baso # (Auto) 0.0 (0.0-0.1) 10^3/uL Absolute Nucleated RBC 0.00 x10^3/uL Nucleated RBC % 0.0 /100WBC Sodium 139 (135-145) mmol/L Potassium 4.0 (3.5-5.0) mmol/L Chloride 104 (101-111) mmol/L Carbon Dioxide 27 (21-32) mmol/L Anion Gap 8.0 (6-13) BUN 11 (6-20) mg/dL Creatinine 0.6 (0.4-1.0) mg/dL Estimated GFR (MDRD) 99 (>89) Glucose 133 H (70-100) mg/dL POC Whole Bld Glucose (70 - 100) mg/dL Calcium 8.9 (8.5-10.3) mg/dL Total Bilirubin 0.8 (0.2-1.0) mg/dL AST 46 H (10-42) IU/L ALT 78 H (10-60) IU/L Alkaline Phosphatase 63 (42-121) IU/L Total Protein 7.1 (6.7-8.2) g/dL Albumin 3.7 (3.2-5.5) g/dL Globulin 3.4 (2.1-4.2) g/dL Albumin/Globulin Ratio 1.1 (1.0-2.2) Lipase 605 H (22-51) U/L TSH 1.25 (0.34-5.60) uIU/mL Urine Opiates Screen (NEGATIVE) Ur Oxycodone Screen (NEGATIVE) Urine Methadone Screen (NEGATIVE) Ur Propoxyphene Screen (NEGATIVE) Ur Barbiturates Screen (NEGATIVE) Ur Tricyclics Screen (NEGATIVE) Ur Phencyclidine Scrn (NEGATIVE) Ur Amphetamine Screen (NEGATIVE) U Methamphetamines Scrn (NEGATIVE) U Benzodiazepines Scrn (NEGATIVE) Urine Cocaine Screen (NEGATIVE) U Cannabinoids Screen (NEGATIVE) 03/16/20 03/16/20 03/16/20 Range/Units 23:55 17:52 10:33 WBC (4.8-10.8) x10^3/uL RBC (4.20-5.40) 10^6/uL Hgb (12.0-16.0) g/dL Hct (37.0-47.0) % MCV (81.0-99.0) fL MCH (27.0-31.0) pg MCHC (32.0-36.0) g/dL RDW (12.0-15.0) % Plt Count (130-450) 10^3/uL MPV (7.9-10.8) fL Neut # (Auto) (1.5-6.6) 10^3/uL Lymph # (Auto) (1.5-3.5) 10^3/uL [place] # (Auto) (0.0-1.0) 10^3/uL Eos # (Auto) (0.0-0.7) 10^3/uL Baso # (Auto) (0.0-0.1) 10^3/uL Absolute Nucleated RBC x10^3/uL Nucleated RBC % /100WBC Sodium (135-145) mmol/L Potassium (3.5-5.0) mmol/L Chloride (101-111) mmol/L Carbon Dioxide (21-32) mmol/L Anion Gap (6-13) BUN (6-20) mg/dL Creatinine (0.4-1.0) mg/dL Estimated GFR (MDRD) (>89) Glucose (70-100) mg/dL POC Whole Bld Glucose 128 H 115 H (70 - 100) mg/dL Calcium (8.5-10.3) mg/dL Total Bilirubin (0.2-1.0) mg/dL AST (10-42) IU/L ALT (10-60) IU/L Alkaline Phosphatase (42-121) IU/L Total Protein (6.7-8.2) g/dL Albumin (3.2-5.5) g/dL Globulin (2.1-4.2) g/dL Albumin/Globulin Ratio (1.0-2.2) Lipase (22-51) U/L TSH (0.34-5.60) uIU/mL Urine Opiates Screen POSITIVE H (NEGATIVE) Ur Oxycodone Screen NEGATIVE (NEGATIVE) Urine Methadone Screen NEGATIVE (NEGATIVE) Ur Propoxyphene Screen NEGATIVE (NEGATIVE) Ur Barbiturates Screen POSITIVE H (NEGATIVE) Ur Tricyclics Screen NEGATIVE (NEGATIVE) Ur Phencyclidine Scrn NEGATIVE (NEGATIVE) Ur Amphetamine Screen NEGATIVE (NEGATIVE) U Methamphetamines Scrn NEGATIVE (NEGATIVE) U Benzodiazepines Scrn NEGATIVE (NEGATIVE) Urine Cocaine Screen NEGATIVE (NEGATIVE) U Cannabinoids Screen NEGATIVE (NEGATIVE) Sepsis Event Note (H) - Evaluation Current Stage of Sepsis: Ruled out Assessment/Plan - Problem List (1) Pancreatitis Impression: 03/17, patient report she feels much better today, abdominal pain is good control, lipase down to the 600 from over 4800, will continue intravenous IV fluids, start clear liquid diet today. Continue hold home medications, continue lab monitor and lipase test Patient repeat to have pancreatitis. Unfortunately she repeat to take supplement medicines again although she state she will not take any more these supplement meds. We will let pt have bowel rest and intravenous IV fluids, lipase daily test, glucose check when patient is n.p.o. and vital signs check. Patient is a NPO now, will gradually advance patient's diet as tolerated (2)medical non-compliance 03/17 Patient at this time she understand she wrongly takes some in the home, Either she take too many PRN medications in the home or she take some suppl ements medications in the home to cause her pancreatitis. patient had 7 medications at home but has 6 medication as needed, patient state she took the PRN medication as she needed. But she does not have a clear clues, how many times she took and how much dose that she took. We will review with the patient one by one for her home medications, patient stated she will not take supplement meds any more, and she will take exactly as medical schedule. (2) Abdominal pain Conclusion/Plan: 03/17, patient reports abdominal pain is good control now, her lipase is down to the 600, We will continue pain control, continue intravenous IV fluids Patient abdominal pain is likely secondary to acute pancreatitis. Plan, bowel rest, pain control, intravenous IV fluids (3) History of COPD Conclusion/Plan: 619, patient has history of COPD and Patient has a history of pulmonary nodule. she has had slight down O2 sats in the morning and the patient has mild tachycardia, but the patient refused to have chest x-ray, we will add Xopenex and Ipro as needed, supplement O2 as need, and reduced IVF dosage to 75CC/H pt also refused to tele and EKG to be monitored Patient has history of COPD. patient has a sats 96% on room air without respiratory distress. will monitor pt and adjust meds as needed. (4) HLD (hyperlipidemia) Conclusion/Plan: Patient has a history of hyperlipidemia, Patient has hyperlipidemia on the last time admission lab test, but the patient refused to take Lipitor. (5) Chronic pain Conclusion/Plan: Patient has history of for chronic pain, we will use pain medication to control the pain in the abdomen (6)pulmonary nodules Patient has a history of pulmonary nodule. she quitted her smoking in 2013, Her pulmonary nodule is small size, she will have the PET scan in this April, she states she will follow-up with her oncologist. (7)tachycardia Patient has tachycardia at HR 115, patient denies chest pain, denies shortness of breathing, patient has no cough. pt refused to have CXR, tele and EKG. We will reduce intravenous IV fluids to 75 cc/h, continue vital signs monitor, we will discussed with the patient, hopefully patient agree to have chest x-ray at least. pt refused to have Lovenox as well. will check Troponin as well. Qualifiers: Chronicity: acute Pancreatitis type: unspecified pancreatitis type Acute pancreatitis complication: no infection or necrosis Qualified Code(s): K85.90 - Acute pancreatitis without necrosis or infection, unspecified
--- NOTE | 2020-03-17 14:34 | XRAY Report ---
PROCEDURE: Chest 1 View X-Ray INDICATIONS: SOB and fever TECHNIQUE: One view of the chest was acquired. COMPARISON: 2 views of the chest dated 08/13/2017. FINDINGS: Patient is slightly rotated. Surgical changes and devices: None. Lungs and pleura: No pleural effusions or pneumothorax. Lungs are clear. Mediastinum: Mediastinal contours appear normal. Heart size is normal. Bones and chest wall: No suspicious bony lesions. Overlying soft tissues appear unremarkable. IMPRESSION: No acute cardiopulmonary findings. Reviewed by: Oneida Albert MD on 03/17/2020 2:33 PM PDT Approved by: Oneida Albert MD on 03/17/2020 2:33 PM PDT Station ID: [id number]
[2020-03-17 19:56] LABS: BASOPHILS % (AUTO) 0.2 %; EOSINOPHILS # (AUTO) 0.2 10^3/uL (0.0-0.7); EOSINOPHILS % (AUTO) 2.3 %; HGB - HEMOGLOBIN 11.4 g/dL (12.0-16.0); LYMPHOCYTES % (AUTO) 10.8 %; MEAN CORPUSCULAR HEMOGLOBIN 31.2 pg (27.0-31.0); MEAN CORPUSCULAR VOLUME 97.5 fL (81.0-99.0); MEAN PLATELET VOLUME 10.5 fL (7.9-10.8); MONOCYTES # (AUTO) 0.9 10^3/uL (0.0-1.0); MONOCYTES % (AUTO) 9.6 %; NEUTROPHILS # (AUTO) 7.2 10^3/uL (1.5-6.6); NEUTROPHILS % (AUTO) 76.7 %; PLT - PLATELET COUNT 205 10^3/uL (130-450); RED BLOOD COUNT 3.65 10^6/uL (4.20-5.40); RED CELL DISTRIBUTION WIDTH 12.7 % (12.0-15.0); WHITE BLOOD COUNT 9.4 x10^3/uL (4.8-10.8)
[2020-03-18] MEDS: SODIUM CHLORIDE FLUSH 0.9% 10 ML SYRINGE IVP SCH ×4 (01:19→23:51)
[2020-03-18] MEDS: MORPHINE 2 MG/ML CARPUJECT IVP PRN ×5 (02:33→23:55)
[2020-03-18] MEDS: GABAPENTIN 100 MG CAPSULE PO PRN ×3 (02:34→19:51)
[2020-03-18] MEDS: ONDANSETRON 4 MG/2 ML VIAL IVP PRN ×2 (04:40→16:27)
[2020-03-18] MEDS: ACETAMINOPHEN 325 MG TABLET PO PRN ×3 (06:11→23:51)
[2020-03-18] MEDS: PANTOPRAZOLE 40 MG TABLET PO SCH (06:11)
[2020-03-18 07:31] LABS: BASOPHILS % (AUTO) 0.2 %; EOSINOPHILS # (AUTO) 0.4 10^3/uL (0.0-0.7); EOSINOPHILS % (AUTO) 3.9 %; HGB - HEMOGLOBIN 11.7 g/dL (12.0-16.0); LYMPHOCYTES % (AUTO) 10.9 %; MEAN CORPUSCULAR HGB CONC 31.3 g/dL (32.0-36.0); MEAN CORPUSCULAR VOLUME 95.9 fL (81.0-99.0); MEAN PLATELET VOLUME 11.1 fL (7.9-10.8); MONOCYTES # (AUTO) 0.9 10^3/uL (0.0-1.0); MONOCYTES % (AUTO) 10.4 %; NEUTROPHILS # (AUTO) 6.7 10^3/uL (1.5-6.6); NEUTROPHILS % (AUTO) 74.3 %; PLT - PLATELET COUNT 233 10^3/uL (130-450); RED CELL DISTRIBUTION WIDTH 12.6 % (12.0-15.0)
[2020-03-18 07:36] LABS: ALBUMIN 3.5 g/dL (3.2-5.5); BILIRUBIN,TOTAL 0.8 mg/dL (0.2-1.0); CALCIUM 8.9 mg/dL (8.5-10.3); CREATININE 0.5 mg/dL (0.4-1.0)
[2020-03-18] MEDS: ENOXAPARIN 40 MG/0.4 ML SYRINGE SUBQ SCH (10:51)
[2020-03-18] MEDS: SODIUM CHLORIDE 0.9% 1,000 ML IV SCH (11:21)
--- NOTE | 2020-03-18 12:03 | PROVIDER PROGRESS NOTE ---
Assessment/Plan - Problem List (1) Pancreatitis Qualifiers: Chronicity: acute Pancreatitis type: unspecified pancreatitis type Acute pancreatitis complication: no infection or necrosis Qualified Code(s): K85.90 - Acute pancreatitis without necrosis or infection, unspecified Assessment/Plan: 03/18, Patient still report she has diffused abdominal pain. And lipase is 83 on today. She also reported she have an allergy and she requests Benadryl. Today she reported she have a one-time chemotherapy for her pulmonary nodule, she is thinking this was happened 2015 which caused her pancreatitis. She reviewed her nausea is better.She request to D/C her intravenous IV fluids. We will continue pain control, continue laboratory monitoring, continue antiemesis as needed, continue check lipase. 03/17, patient report she feels much better today, abdominal pain is good control, lipase down to the 600 from over 4800, will continue intravenous IV fluids, start clear liquid diet today. Continue hold home medications, continue lab monitor and lipase test Patient repeat to have pancreatitis. Unfortunately she repeat to take supplement medicines again although she state she will not take any more these supplement meds. We will let pt have bowel rest and intravenous IV fluids, lipase daily test, glucose check when patient is n.p.o. and vital signs check. Patient is a NPO now, will gradually advance patient's diet as tolerated (2)medical non-compliance 03/18, patient has different story for every day, what kind of the medication she really took at home is mysterious. Advised the patient follow medical advice strictly, which will help her recurrence of pancreatitis 03/17 Patient at this time she understand she wrongly takes some in the home, Either she take too many PRN medications in the home or she take some supplements medications in the home to cause her pancreatitis. patient had 7 medications at home but has 6 medication as needed, patient state she took the PRN medication as she needed. But she does not have a clear clues, how many times she took and how much dose that she took. We will review with the patient one by one for her home medications, patient stated she will not take supplement meds any more, and she will take exactly as medical schedule. (2) Abdominal pain Conclusion/Plan: 03/18, patient still report she has diffuse abdominal pain, but her lipase is down to the 80s, close to the normal. She reports her nausea is good control now, she request soft solid diet. We will continue pain control, continue Lipitor to monitor 03/17, patient reports abdominal pain is good control now, her lipase is down to the 600, We will continue pain control, continue intravenous IV fluids Patient abdominal pain is likely secondary to acute pancreatitis. Plan, bowel rest, pain control, intravenous IV fluids (3) History of COPD Conclusion/Plan: 03/18, Patient has 93 and 94% sats on room air, patient does not show respiratory distress, stable. Chest x-ray from yesterday was unremarkable.Continue closely monitor patient and vital signs check for patient, Continue breathing treatment as needed 619, patient has history of COPD and Patient has a history of pulmonary nodule. she has had slight down O2 sats in the morning and the patient has mild tachycardia, but the patient refused to have chest x-ray, we will add Xopenex and Ipro as needed, supplement O2 as need, and reduced IVF dosage to 75CC/H pt also refused to tele and EKG to be monitored Patient has history of COPD. patient has a sats 96% on room air without respiratory distress. will monitor pt and adjust meds as needed. (4) HLD (hyperlipidemia) Conclusion/Plan: Patient has a history of hyperlipidemia, Patient has hyperlipidemia on the last time admission lab test, but the patient refused to take Lipitor. (5) Chronic pain Conclusion/Plan: Patient has history of for chronic pain, we will use pain medication to control the pain in the abdomen (6)pulmonary nodules Patient has a history of pulmonary nodule. she quitted her smoking in 2013, Her pulmonary nodule is small size, she will have the PET scan in this April, she states she will follow-up with her oncologist. (7)tachycardia 03/18,Resolved, a heart rate is 99 now.Patient denies palpitation or chest pain Patient has tachycardia at HR 115, patient denies chest pain, denies shortness of breathing, patient has no cough. pt refused to have CXR, tele and EKG. We will reduce intravenous IV fluids to 75 cc/h, continue vital signs monitor, we will discussed with the patient, hopefully patient agree to have chest x-ray at least. pt refused to have Lovenox as well. will check Troponin as well. Qualifiers: Chronicity: acute Pancreatitis type: unspecified pancreatitis type Acute pancreatitis complication: no infection or necrosis Qualified Code(s): K85.90 - Acute pancreatitis without necrosis or infection, unspecified - Current Meds Current Meds: Current Medications Generic Name Dose Route Start Last Admin Trade Name Freq PRN Reason Stop Dose Admin Acetaminophen 650 mg 03/16/20 12:54 03/18/20 06:11 Tylenol PO 650 mg Q4HR PRN Administration Pain 1 to 4 Enoxaparin Sodium 40 mg 03/17/20 09:00 03/18/20 10:51 Lovenox SUBQ Not Given DAILY XAVIER Gabapentin 100 mg 03/16/20 14:52 03/18/20 11:21 Neurontin PO 100 mg TID PRN Administration Neuropathic Pain Sodium Chloride 1,000 mls @ 85 mls/hr 03/17/20 15:06 03/18/20 11:21 Normal Saline 0.9% IV 85 mls/hr .[id number] XAVIER Administration Morphine Sulfate 2 mg 03/17/20 14:00 03/18/20 11:20 Morphine (Carpuject) IVP 2 mg Q2HR PRN Administration Pain 8 to 10 Ondansetron HCl 4 mg 03/16/20 12:54 03/18/20 04:40 Zofran Inj IVP 4 mg Q6HR PRN Administration Nausea / Vomiting Sodium Chloride 10 ml 03/16/20 17:00 03/18/20 02:34 Normal Saline Flush 0.9% IVP 10 ml 0100,0900,1700 XAVIER Administration Zolpidem Tartrate 5 mg 03/16/20 12:54 03/17/20 20:48 Ambien PO 5 mg QPM PRN Administration Insomnia - Lab Result Fish Bone Diagrams: 03/18/20 06:36 03/18/20 06:36 - Additional Planning My Orders: My Active Orders 03/17/20 14:00 Morphine Inj (Carpuject) [Morphine (Carpuject)] 2 mg IVP Q2HR PRN 03/17/20 15:06 Sodium Chloride 0.9% [Normal Saline 0.9%] 1,000 ml IV 85 mls/hr 03/17/20 15:42 Miscellaenous Nursing Order [RC] PRN 03/18/20 Breakfast Soft (Low Fiber) Diet [DIET] 03/18/20 11:35 diphenhydrAMINE [Benadryl] 25 mg PO Q4HR PRN 03/18/20 17:00 Saccharomyces Boclaredii [Florastor] 250 mg PO BIDWM 03/19/20 05:00 CBC - COMP BLD CT W/AUTO DIFF [HEME] DAILYLAB CMP [COMPREHENSIVE METABOLIC PANEL] [CHEM] DAILYLAB LIPASE [CHEM] DAILYLAB 03/20/20 05:00 CBC - COMP BLD CT W/AUTO DIFF [HEME] DAILYLAB CMP [COMPREHENSIVE METABOLIC PANEL] [CHEM] DAILYLAB LIPASE [CHEM] DAILYLAB 03/21/20 05:00 CBC - COMP BLD CT W/AUTO DIFF [HEME] DAILYLAB CMP [COMPREHENSIVE METABOLIC PANEL] [CHEM] DAILYLAB Subjective - Subjective Patient Reports: Abdominal Pain Objective Vital Signs: Vital Signs - 24 hr 03/17/20 03/17/20 03/17/20 12:29 15:42 19:45 Temperature 37.6 C H 37.4 C Heart Rate 109 H Heart Rate [ 109 H 115 H Radial] Respiratory 16 24 18 Rate Blood Pressure [Left Brachial artery] Blood Pressure 116/70 125/72 [Left Radial artery] O2 Saturation 86 L 92 03/17/20 03/17/20 03/18/20 20:54 23:55 04:05 Temperature 37.0 C 36.5 C 36.8 C Heart Rate Heart Rate [ 110 H 104 H 102 H Radial] Respiratory 18 18 16 Rate Blood Pressure 142/70 H 143/61 H [Left Brachial artery] Blood Pressure 119/75 [Left Radial artery] O2 Saturation 94 94 93 03/18/20 03/18/20 07:50 09:00 Temperature 36.8 C Heart Rate 103 H Heart Rate [ 99 Radial] Respiratory 16 16 Rate Blood Pressure [Left Brachial artery] Blood Pressure 141/87 H [Left Radial artery] O2 Saturation 87 L Oxygen O2 Source Room air I&O (Last 24 Hrs): Intake and Output Totals x24h 03/16/20 03/17/20 03/18/20 23:59 23:59 23:59 Intake Total 2598.75 3585.76 1240 Balance 2598.75 3585.76 1240 General: Alert, Oriented x3, No acute distress HEENT: Atraumatic Neck: Supple Lymphatic: no adenopathy Neuro: Alert, Non Focal, Oriented Times 3 Cardiovascular: Regular rate, Normal S1, Normal S2 Respiratory: Chest non-tender, No respiratory distress Abdomen: Normal bowel sounds, Soft, No tenderness Extremities: Normal pulses - Results Results: Laboratory Results WBC 9.0 x10^3/uL (4.8-10.8) 03/18/20 06:36 RBC 3.90 10^6/uL (4.20-5.40) L 03/18/20 06:36 Hgb 11.7 g/dL (12.0-16.0) L 03/18/20 06:36 Hct 37.4 % (37.0-47.0) 03/18/20 06:36 MCV 95.9 fL (81.0-99.0) 03/18/20 06:36 MCH 30.0 pg (27.0-31.0) 03/18/20 06:36 MCHC 31.3 g/dL (32.0-36.0) L 03/18/20 06:36 RDW 12.6 % (12.0-15.0) 03/18/20 06:36 Plt Count 233 10^3/uL (130-450) 03/18/20 06:36 MPV 11.1 fL (7.9-10.8) H 03/18/20 06:36 Neut # (Auto) 6.7 10^3/uL (1.5-6.6) H 03/18/20 06:36 Lymph # (Auto) 1.0 10^3/uL (1.5-3.5) L 03/18/20 06:36 [place] # (Auto) 0.9 10^3/uL (0.0-1.0) 03/18/20 06:36 Eos # (Auto) 0.4 10^3/uL (0.0-0.7) 03/18/20 06:36 Baso # (Auto) 0.0 10^3/uL (0.0-0.1) 03/18/20 06:36 Absolute Nucleated RBC 0.00 x10^3/uL 03/18/20 06:36 Nucleated RBC % 0.0 /100WBC 03/18/20 06:36 Sodium 140 mmol/L (135-145) 03/18/20 06:36 Potassium 3.8 mmol/L (3.5-5.0) 03/18/20 06:36 Chloride 100 mmol/L (101-111) L 03/18/20 06:36 Carbon Dioxide 28 mmol/L (21-32) 03/18/20 06:36 Anion Gap 12.0 (6-13) 03/18/20 06:36 BUN 7 mg/dL (6-20) 03/18/20 06:36 Creatinine 0.5 mg/dL (0.4-1.0) 03/18/20 06:36 Estimated GFR (MDRD) 122 (>89) 03/18/20 06:36 Glucose 119 mg/dL (70-100) H 03/18/20 06:36 POC Whole Bld Glucose 128 mg/dL (70 - 100) H 03/16/20 23:55 Lactic Acid 1.1 mmol/L (0.5-2.2) 03/17/20 19:52 Calcium 8.9 mg/dL (8.5-10.3) 03/18/20 06:36 Total Bilirubin 0.8 mg/dL (0.2-1.0) 03/18/20 06:36 AST 28 IU/L (10-42) 03/18/20 06:36 ALT 54 IU/L (10-60) 03/18/20 06:36 Alkaline Phosphatase 60 IU/L (42-121) 03/18/20 06:36 Troponin I High Sens 4.7 ng/L (2.3-14.8) 03/17/20 14:18 Total Protein 7.0 g/dL (6.7-8.2) 03/18/20 06:36 Albumin 3.5 g/dL (3.2-5.5) 03/18/20 06:36 Globulin 3.5 g/dL (2.1-4.2) 03/18/20 06:36 Albumin/Globulin Ratio 1.0 (1.0-2.2) 03/18/20 06:36 Lipase 83 U/L (22-51) H 03/18/20 06:36 TSH 1.25 uIU/mL (0.34-5.60) 03/17/20 05:25 Urine Color YELLOW 03/16/20 10:33 Urine Clarity CLEAR (CLEAR) 03/16/20 10:33 Urine pH 6.0 PH (5.0-7.5) 03/16/20 10:33 Ur Specific [place] 1.015 (1.002-1.030) 03/16/20 10:33 Urine Protein NEGATIVE mg/dL (NEGATIVE) 03/16/20 10:33 Urine Glucose (UA) NEGATIVE mg/dL (NEGATIVE) 03/16/20 10:33 Urine Ketones NEGATIVE mg/dL (NEGATIVE) 03/16/20 10:33 Urine Occult Blood MODERATE (NEGATIVE) H 03/16/20 10:33 Urine Nitrite NEGATIVE (NEGATIVE) 03/16/20 10:33 Urine Bilirubin NEGATIVE (NEGATIVE) 03/16/20 10:33 Urine Urobilinogen 0.2 (NORMAL) E.U./dL (NORMAL) 03/16/20 10:33 Ur Leukocyte Esterase NEGATIVE (NEGATIVE) 03/16/20 10:33 Urine RBC 0-5 /HPF (0-5) 03/16/20 10:33 Urine WBC 0-3 /HPF (0-5) 03/16/20 10:33 Ur Squamous Epith Cells MOD Squamous (<= Few) H 03/16/20 10:33 Urine Bacteria Few /HPF (None Seen) 03/16/20 10:33 Ur Microscopic Review INDICATED 03/16/20 10:33 Urine Culture Comments NOT INDICATED 03/16/20 10:33 Urine Opiates Screen POSITIVE (NEGATIVE) H 03/16/20 10:33 Ur Oxycodone Screen NEGATIVE (NEGATIVE) 03/16/20 10:33 Urine Methadone Screen NEGATIVE (NEGATIVE) 03/16/20 10:33 Ur Propoxyphene Screen NEGATIVE (NEGATIVE) 03/16/20 10:33 Ur Barbiturates Screen POSITIVE (NEGATIVE) H 03/16/20 10:33 Ur Tricyclics Screen NEGATIVE (NEGATIVE) 03/16/20 10:33 Ur Phencyclidine Scrn NEGATIVE (NEGATIVE) 03/16/20 10:33 Ur Amphetamine Screen NEGATIVE (NEGATIVE) 03/16/20 10:33 U Methamphetamines Scrn NEGATIVE (NEGATIVE) 03/16/20 10:33 U Benzodiazepines Scrn NEGATIVE (NEGATIVE) 03/16/20 10:33 Urine Cocaine Screen NEGATIVE (NEGATIVE) 03/16/20 10:33 U Cannabinoids Screen NEGATIVE (NEGATIVE) 03/16/20 10:33 - Procedures Procedures: Procedures EXCISION OF R UP LEG SUBCU/FASCIA, OPEN APPROACH (12/09/16) Sepsis Event Note (H) - Evaluation Current Stage of Sepsis: Ruled out ABX Reporting Has patient been on IV antibiotics over the past 48 hours?: No Current Medications - Current Medications Current Medications: Active Medications Acetaminophen (Tylenol) 650 mg PO Q4HR PRN PRN Reason: Pain 1 to 4 Last Admin: 03/18/20 06:11 Dose: 650 mg Documented by: Diphenhydramine HCl (Benadryl) 25 mg PO Q4HR PRN PRN Reason: Allergy Symptoms Enoxaparin Sodium (Lovenox) 40 mg SUBQ DAILY [facility] Last Admin: 03/18/20 10:51 Dose: Not Given Documented by: Gabapentin (Neurontin) 100 mg PO TID PRN PRN Reason: Neuropathic Pain Last Admin: 03/18/20 11:21 Dose: 100 mg Documented by: Ipratropium [place] (Atrovent) 0.5 mg INH RTQ4H PRN PRN Reason: Shortness of Air/Wheezing Levalbuterol HCl (Xopenex) 1.25 mg INH Q4H PRN PRN Reason: Shortness of Air/Wheezing Morphine Sulfate (Morphine (Carpuject)) 2 mg IVP Q2HR PRN PRN Reason: Pain 8 to 10 Last Admin: 03/18/20 11:20 Dose: 2 mg Documented by: Ondansetron HCl (Zofran Inj) 4 mg IVP Q6HR PRN PRN Reason: Nausea / Vomiting Last Admin: 03/18/20 04:40 Dose: 4 mg Documented by: Primidone (Mysoline) 50 mg PO BID PRN PRN Reason: ESSENTIAL TREMOR Saccharomyces Boulardii (Florastor) 250 mg PO BIDWM [facility] Sodium Chloride (Normal Saline Flush 0.9%) 10 ml IVP PRN PRN PRN Reason: NEEDED PER PROVIDER ORDERS Sodium Chloride (Normal Saline Flush 0.9%) 10 ml IVP 0100,0900,1700 [facility] Last Admin: 03/18/20 02:34 Dose: 10 ml Documented by: Zolpidem Tartrate (Ambien) 5 mg PO QPM PRN PRN Reason: Insomnia Last Admin: 03/17/20 20:48 Dose: 5 mg Documented by: Acetaminophen [Tylenol Extra Strength] 500 - 1,000 mg PO TID PRN 02/29/20 Gabapentin 100 mg PO TID PRN 02/29/20 Ibuprofen [Advil] 200 mg PO DAILY PRN 02/29/20 Naproxen [Naprosyn] 500 mg PO BID PRN 02/29/20 Primidone [Mysoline] 50 mg PO BID PRN 02/29/20 Tizanidine HCl 4 mg PO DAILY PRN 02/29/20
[2020-03-18] MEDS: SACCHAROMYCES BOULARDII 250 MG CAPSULE PO SCH (16:26)
[2020-03-18] MEDS ORDERED: MAGNESIUM CITRATE 296 ML BOTTLE PO PRN (18:38)
[2020-03-18] MEDS ORDERED: MAGNESIUM HYDROXIDE 2,400 MG/30 ML UDC PO PRN (18:49)
[2020-03-18] MEDS: diphenhydrAMINE 25 MG CAPSULE PO PRN (23:52)
[2020-03-18] MEDS: ZOLPIDEM 5 MG TABLET PO PRN (23:52)
[2020-03-19] MEDS: GABAPENTIN 100 MG CAPSULE PO PRN ×2 (03:53→16:41)
[2020-03-19] MEDS: MORPHINE 2 MG/ML CARPUJECT IVP PRN ×2 (03:54→06:03)
[2020-03-19 05:14] LABS: BASOPHILS % (AUTO) 0.4 %; EOSINOPHILS # (AUTO) 0.3 10^3/uL (0.0-0.7); EOSINOPHILS % (AUTO) 3.9 %; HGB - HEMOGLOBIN 10.8 g/dL (12.0-16.0); LYMPHOCYTES # (AUTO) 1.2 10^3/uL (1.5-3.5); LYMPHOCYTES % (AUTO) 15.1 %; MEAN CORPUSCULAR HGB CONC 31.2 g/dL (32.0-36.0); MEAN CORPUSCULAR VOLUME 96.1 fL (81.0-99.0); MEAN PLATELET VOLUME 11.2 fL (7.9-10.8); MONOCYTES # (AUTO) 0.8 10^3/uL (0.0-1.0); MONOCYTES % (AUTO) 10.1 %; NEUTROPHILS # (AUTO) 5.5 10^3/uL (1.5-6.6); NEUTROPHILS % (AUTO) 70.2 %; PLT - PLATELET COUNT 211 10^3/uL (130-450); RED CELL DISTRIBUTION WIDTH 12.5 % (12.0-15.0); WHITE BLOOD COUNT 7.8 x10^3/uL (4.8-10.8)
[2020-03-19 05:29] LABS: ALBUMIN 3.5 g/dL (3.2-5.5); BILIRUBIN,TOTAL 0.7 mg/dL (0.2-1.0); CALCIUM 9.1 mg/dL (8.5-10.3); CREATININE 0.6 mg/dL (0.4-1.0)
[2020-03-19] MEDS: ACETAMINOPHEN 325 MG TABLET PO PRN ×2 (06:04→13:12)
[2020-03-19] MEDS ORDERED: ONDANSETRON ODT 4 MG TABLET TL PRN (06:46)
[2020-03-19] MEDS ORDERED: oxyCODONE 5 MG TABLET PO PRN (06:47)
[2020-03-19] MEDS ORDERED: GABAPENTIN 100 MG CAPSULE PO SCH (07:50)
[2020-03-19] MEDS: diphenhydrAMINE 25 MG CAPSULE PO PRN ×2 (07:55→15:57)
[2020-03-19] MEDS: SACCHAROMYCES BOULARDII 250 MG CAPSULE PO SCH ×2 (07:56→16:40)
[2020-03-19] MEDS ORDERED: DOCUSATE SODIUM 250 MG CAPSULE PO SCH (09:00)
[2020-03-19] MEDS: ENOXAPARIN 40 MG/0.4 ML SYRINGE SUBQ SCH (09:12)
[2020-03-19] MEDS: polyethylene glycoL 3350 17 GM PACKET PO SCH (09:12)
[2020-03-19] MEDS: SODIUM CHLORIDE FLUSH 0.9% 10 ML SYRINGE IVP SCH ×3 (09:12→23:18)
[2020-03-19] MEDS: HYDROcod/ACETAM 5/325 MG TABLET PO PRN ×2 (13:10→20:50)
[2020-03-19] MEDS ORDERED: MAG HYDROX/AL HYDROX/SIMETH 30 ML UDC PO PRN (13:42)
--- NOTE | 2020-03-19 14:17 | CONSULTATION NOTE ---
Referring Provider Name of Referring Provider:: Stephan Rowan Consult Date: 03/19/20 Chief Complaint - Chief Complaint Chief Complaint: Suspected gallstone pancreatitis History of Present Illness - Admitted From Admitted From:: ER - History Obtained From Records Reviewed: EMR History obtained from: Patient Exam Limitations: None - History of Present Illness HPI Comment/Other: 69-year-old female with multiple comorbid states including reported COPD and history of prior wedge resection of left lung. She had undergone oncologic care for reported lung cancer. She presents with recurrent pancreatitis, second admission within 1 month. No history of gallstones. Past smoker, no personal history of alcohol use or abuse. She has never undergone colonoscopy, for which she vehemently denies any benefit. She says having undergone PET scan with the last 2 years she was sure there was no evidence of malignancy at that time given this was a whole body study. Patient reports history of hysterectomy. G1, P1. Denies fecal or urinary incontinence. Daily bowel movements. No melena or hematochezia. History - Past Medical History Cardiovascular: reports: High cholesterol Respiratory: reports: COPD Neuro: reports: None Endocrine/Autoimmune: reports: HyPOthyroidism GI: reports: None MEDICAL ASST: reports: None : reports: Kidney stones HEENT: reports: Other Psych: reports: None Musculoskeletal: reports: Osteoarthritis, Chronic back pain Derm: reports: Eczema, Psoriasis MRSA Hx?: No - Past Surgical History /MEDICAL ASST: reports: Hysterectomy, Oophrectomy, Breast reduction Cardiovascular: reports: Lobectomy, Other (Reports wedge resection of left lung.) HEENT: reports: Tonsil/Adenoidectomy - Family & Social History Family History: Mother: , Father: Family History Comment/Other: Her mother had a OH 70 years old, at the age 83 from CAD. Her father at age 91 due to age related multiple medical problems Social History Notes: Patient smoke half of a pack per day for many years she quit in September 2013, she drink an occatinal glass of wine, denies any drug use. 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, - Substance History Use: Uses substance without health or social issues: Tobacco - POLST Patient has POLST: No Meds/Allgy - Home Medications Home Medications: Ambulatory Orders Medication Instructions Recorded Confirmed Acetaminophen [Tylenol Extra 500 - 1,000 mg PO TID PRN 06/02/20 06/18/20 Strength] Gabapentin 100 mg PO TID PRN 02/29/20 03/16/20 Ibuprofen [Advil] 200 mg PO DAILY PRN 02/29/20 03/16/20 Naproxen [Naprosyn] 500 mg PO BID PRN 02/29/20 03/16/20 Primidone [Mysoline] 50 mg PO BID PRN 02/29/20 03/16/20 Tizanidine HCl 4 mg PO DAILY PRN 02/29/20 03/16/20 Atorvastatin [Lipitor] 10 mg PO QPM #10 tablet 03/03/20 03/16/20 - Allergies Allergies/Adverse Reactions: Allergies Allergy/AdvReac Type Severity Reaction Status Date / Time aspirin Allergy Nausea Verified 03/16/20 08:51 Penicillins Allergy vomiting, Verified 03/16/20 08:51 visual changes oxycodone AdvReac Cramps Verified 03/19/20 07:06 Review of Systems - Respiratory Respiratory: reports: Cough - Gastrointestinal Gastrointestinal: reports: Abdominal pain, Nausea, Vomiting, Other (She has never undergone colonoscopy, for which she vehemently denies any benefit. She says having undergone PET scan with the last 2 years she was sure there was no evidence of malignancy at that time given this was a whole body study.) Exam - Vital Signs Vital Signs: Vital Signs x48h Temp Pulse Resp BP Pulse Ox 03/19/20 13:00 36.4 C L 100 20 155/87 H 91 L 03/19/20 08:56 37.0 C 101 H 18 165/89 H 92 - Physical Exam General Appearance: positive: Anxious Eyes Bilateral: positive: Normal inspection, PERRL, EOMI ENT: positive: ENT inspection nml Neck: positive: Thyroid nml Respiratory: positive: Breath sounds nml, Wheezes Cardiovascular: positive: Regular rate & rhythm Abdomen: positive: Other (Obese, soft nondistended no rebound or guarding. Sitting up comfortably in bed.) Conclusion/Plan - Diagnosis Diagnosis: Suspected gallstone pancreatitis, recurrent in setting of patient with COPD and reported history of left lung wedge resection for malignancy. - Plan Plan: 1. repeat ultrasound to evaluate for any biliary sludge and/or gallstones. 2. Patient advised that in the setting of suspected gallstone pancreatitis, would be best served to have procedure within 2 weeks of episode. Fact that she presents with recurrence suggest that this is likely the underlying etiology. 3. Patient is high risk given her obesity, morbid, COPD, history of reported lung resection. Would proceed cautiously with regard to carmen-and postoperative care and suggest that she may be best served having this performed at the facility that had provided her oncologic care historically. 4. Prior to proceeding with any abdominal intervention, patient was strongly advised that she would be served by having referral to gastroenterology for upper and lower endoscopy for which she is neither undergone historically. This would be advisable for any occult disease. 5. MRCP will also be somewhat insightful and would benefit the patient going forward. - Lab Results Fish Bones: 03/19/20 04:15 03/19/20 04:15 - Diagnostic Imaging Results Diagnostic Imaging Results: positive: Prelim report reviewed, Final report reviewed
--- NOTE | 2020-03-19 17:15 | PROVIDER PROGRESS NOTE ---
Subjective - Prog Note Date Prog Note Date: 03/19/20 - Subjective Subjective: Reports her abdominal pain has improved but is still present at times especially after meals. She feels it is controlled with hydrocodone. Reports no more nausea or vomiting. She is concerned about further episodes of recurrent pancreatitis. Current Medications - Current Medications Current Medications: Active Medications Acetaminophen (Tylenol) 650 mg PO Q4HR PRN PRN Reason: Pain 1 to 4 Last Admin: 03/19/20 13:12 Dose: 650 mg Documented by: Hydrocodone Bitart/Acetaminophen ([place] 5/325) 1 tab PO Q4HR PRN PRN Reason: PAIN Last Admin: 03/19/20 13:10 Dose: 1 tab Documented by: Al Hydroxide/Mg Hydroxide (Mylanta Plus) 30 ml PO Q4HR PRN PRN Reason: INDIGESTION Diphenhydramine HCl (Benadryl) 25 mg PO Q4HR PRN PRN Reason: Allergy Symptoms Last Admin: 03/19/20 15:57 Dose: 25 mg Documented by: Docusate Sodium (Colace 250mg Capsule) 250 - 500 mg PO DAILY [facility] Last Admin: 03/19/20 09:12 Dose: Not Given Documented by: Enoxaparin Sodium (Lovenox) 40 mg SUBQ DAILY [facility] Last Admin: 03/19/20 09:12 Dose: Not Given Documented by: Gabapentin (Neurontin) 100 mg PO TID PRN PRN Reason: Neuropathic Pain Last Admin: 03/19/20 16:41 Dose: 100 mg Documented by: Ipratropium [place] (Atrovent) 0.5 mg INH RTQ4H PRN PRN Reason: Shortness of Air/Wheezing Last Admin: 03/19/20 15:00 Dose: 0.5 mg Documented by: Levalbuterol HCl (Xopenex) 1.25 mg INH Q4H PRN PRN Reason: Shortness of Air/Wheezing Last Admin: 03/19/20 15:00 Dose: 1.25 mg Documented by: Magnesium Citrate () 150 ml PO ONCE PRN PRN Reason: Constipation Stop: 03/19/20 18:38 Magnesium Hydroxide (Milk Of Magnesia) 2,400 mg PO ONCE PRN PRN Reason: Constipation Stop: 03/19/20 18:49 Last Admin: 03/18/20 20:16 Dose: 2,400 mg Documented by: Ondansetron HCl (Zofran Odt) 4 mg TL Q6HR PRN PRN Reason: Nausea / Vomiting Last Admin: 03/19/20 06:54 Dose: 4 mg Documented by: Polyethylene Glycol (Miralax) 17 gm PO DAILY [facility] Last Admin: 03/19/20 09:12 Dose: Not Given Documented by: Primidone (Mysoline) 50 mg PO BID PRN PRN Reason: ESSENTIAL TREMOR Saccharomyces Boulardii (Florastor) 250 mg PO BIDWM [facility] Last Admin: 03/19/20 16:40 Dose: 250 mg Documented by: Sodium Chloride (Normal Saline Flush 0.9%) 10 ml IVP PRN PRN PRN Reason: NEEDED PER PROVIDER ORDERS Last Admin: 03/18/20 20:15 Dose: 10 ml Documented by: Sodium Chloride (Normal Saline Flush 0.9%) 10 ml IVP 0100,0900,1700 [facility] Last Admin: 03/19/20 16:40 Dose: Not Given Documented by: Zolpidem Tartrate (Ambien) 5 mg PO QPM PRN PRN Reason: Insomnia Last Admin: 03/18/20 23:52 Dose: 5 mg Documented by: Acetaminophen [Tylenol Extra Strength] 500 - 1,000 mg PO TID PRN 02/29/20 Gabapentin 100 mg PO TID PRN 02/29/20 Ibuprofen [Advil] 200 mg PO DAILY PRN 02/29/20 Naproxen [Naprosyn] 500 mg PO BID PRN 02/29/20 Primidone [Mysoline] 50 mg PO BID PRN 02/29/20 Tizanidine HCl 4 mg PO DAILY PRN 02/29/20 Objective - Vital Signs/Intake & Output Reviewed Vital Signs: Yes Vital Signs: Vital Signs x48h Temp Pulse Pulse Resp BP Pulse Ox 03/19/20 15:00 101 H 16 03/19/20 13:00 36.4 C L 100 20 155/87 H 91 L Intake & Output: Intake & Output 03/16/20 03/17/20 03/18/20 03/19/20 23:59 23:59 23:59 23:59 Intake Total 2598.75 3585.76 2032.417 520 Balance 2598.75 3585.76 2032.417 520 - Objective General Appearance: positive: No acute distress, Alert Eyes Bilateral: positive: Normal inspection ENT: positive: ENT inspection nml Neck: positive: Nml inspection Respiratory: positive: No respiratory distress, Other (Diminished breath sounds in the bases.). negative: Wheezes, Rales, Rhonchi Cardiovascular: positive: No murmur, Tachycardia. negative: Bradycardia, Systolic murmur Abdomen: positive: Non-tender, Nml bowel sounds, No distention. negative: Tenderness, Guarding, Rebound Skin: positive: No rash, Warm, Dry Extremities: positive: Full ROM, No pedal edema Neurologic/Psychiatric: positive: Oriented x3, Motor nml. negative: Disoriented to person, Disoriented to place, Disoriented to time - Lab Results Fish Bones: 03/19/20 04:15 03/19/20 04:15 Other Labs: Lab Results x24hrs 03/19/20 03/19/20 Range/Units 04:15 04:15 WBC 7.8 (4.8-10.8) x10^3/uL RBC 3.60 L (4.20-5.40) 10^6/uL Hgb 10.8 L (12.0-16.0) g/dL Hct 34.6 L (37.0-47.0) % MCV 96.1 (81.0-99.0) fL MCH 30.0 (27.0-31.0) pg MCHC 31.2 L (32.0-36.0) g/dL RDW 12.5 (12.0-15.0) % Plt Count 211 (130-450) 10^3/uL MPV 11.2 H (7.9-10.8) fL Neut # (Auto) 5.5 (1.5-6.6) 10^3/uL Lymph # (Auto) 1.2 L (1.5-3.5) 10^3/uL [place] # (Auto) 0.8 (0.0-1.0) 10^3/uL Eos # (Auto) 0.3 (0.0-0.7) 10^3/uL Baso # (Auto) 0.0 (0.0-0.1) 10^3/uL Absolute Nucleated RBC 0.00 x10^3/uL Nucleated RBC % 0.0 /100WBC Sodium 142 (135-145) mmol/L Potassium 3.8 (3.5-5.0) mmol/L Chloride 102 (101-111) mmol/L Carbon Dioxide 31 (21-32) mmol/L Anion Gap 9.0 (6-13) BUN 9 (6-20) mg/dL Creatinine 0.6 (0.4-1.0) mg/dL Estimated GFR (MDRD) 99 (>89) Glucose 119 H (70-100) mg/dL Calcium 9.1 (8.5-10.3) mg/dL Total Bilirubin 0.7 (0.2-1.0) mg/dL AST 22 (10-42) IU/L ALT 44 (10-60) IU/L Alkaline Phosphatase 60 (42-121) IU/L Total Protein 7.0 (6.7-8.2) g/dL Albumin 3.5 (3.2-5.5) g/dL Globulin 3.5 (2.1-4.2) g/dL Albumin/Globulin Ratio 1.0 (1.0-2.2) Lipase 43 (22-51) U/L - Diagnostic Imaging Diagnostic Imaging Results: positive: Final report reviewed Sepsis Event Note (H) - Evaluation Current Stage of Sepsis: Ruled out Assessment/Plan - Problem List (1) Pancreatitis Impression: Suspect this may be secondary to biliary sludge as review of imaging from earlier this month showed biliary sludge in her gallbladder although there was no evidence of Cholelithiasis. She is not an alcoholic and she has no hypertriglyceridemia. Her LFTs were also transiently elevated on each admission for pancreatitis. Her lipase is now within normal limits and her abdominal pain is well controlled. Given these findings, I spoke with general surgery and they agree with obtaining MRCP for further evaluation as she may potentially need a cholecystectomy and to also rule out underlying pancreatic mass. If MRCP suggests choledocholithiasis then she would need to be transferred for ERCP. We will also check ANGELIQUE and IgG4 to rule out autoimmune pancreatitis. N.p.o. at midnight Qualifiers: Chronicity: acute Pancreatitis type: unspecified pancreatitis type Acute pancreatitis complication: no infection or necrosis Qualified Code(s): K85.90 - Acute pancreatitis without necrosis or infection, unspecified (2) Chronic pain Impression: Predominately secondary to arthritis. We will continue her home gabapentin and Tylenol as needed.
[2020-03-19] MEDS ORDERED: MAGNESIUM HYDROXIDE 2,400 MG/30 ML UDC PO PRN (20:25)
[2020-03-19] MEDS: LORATADINE 10 MG TABLET PO SCH (20:53)
[2020-03-20] MEDS: HYDROcod/ACETAM 5/325 MG TABLET PO PRN ×5 (00:55→23:39)
[2020-03-20] MEDS ORDERED: MAGNESIUM HYDROXIDE 2,400 MG/30 ML UDC PO ONE (03:00)
[2020-03-20] MEDS: DOCUSATE SODIUM 250 MG CAPSULE PO SCH ×2 (05:03→09:22)
[2020-03-20] MEDS: GABAPENTIN 100 MG CAPSULE PO PRN ×3 (05:10→23:39)
[2020-03-20 06:29] LABS: BASOPHILS % (AUTO) 0.5 %; EOSINOPHILS # (AUTO) 0.4 10^3/uL (0.0-0.7); EOSINOPHILS % (AUTO) 5.2 %; HGB - HEMOGLOBIN 11.5 g/dL (12.0-16.0); LYMPHOCYTES # (AUTO) 1.4 10^3/uL (1.5-3.5); LYMPHOCYTES % (AUTO) 18.5 %; MEAN CORPUSCULAR HGB CONC 32.7 g/dL (32.0-36.0); MEAN CORPUSCULAR VOLUME 94.9 fL (81.0-99.0); MEAN PLATELET VOLUME 10.5 fL (7.9-10.8); MONOCYTES # (AUTO) 0.8 10^3/uL (0.0-1.0); MONOCYTES % (AUTO) 10.2 %; NEUTROPHILS # (AUTO) 4.8 10^3/uL (1.5-6.6); NEUTROPHILS % (AUTO) 65.3 %; PLT - PLATELET COUNT 238 10^3/uL (130-450); RED BLOOD COUNT 3.71 10^6/uL (4.20-5.40); RED CELL DISTRIBUTION WIDTH 12.6 % (12.0-15.0); WHITE BLOOD COUNT 7.3 x10^3/uL (4.8-10.8)
[2020-03-20 06:42] LABS: ALBUMIN 3.5 g/dL (3.2-5.5); ALBUMIN/GLOBULIN RATIO 0.9 (1.0-2.2); BILIRUBIN,TOTAL 0.8 mg/dL (0.2-1.0); CALCIUM 9.4 mg/dL (8.5-10.3); CREATININE 0.7 mg/dL (0.4-1.0); TOTAL PROTEIN 7.5 g/dL (6.7-8.2)
[2020-03-20] MEDS ORDERED: LORazepam 1 MG TABLET PO PRN (07:24)
[2020-03-20] MEDS: SACCHAROMYCES BOULARDII 250 MG CAPSULE PO SCH ×2 (07:54→19:24)
--- NOTE | 2020-03-20 08:10 | Ultrasound Report ---
PROCEDURE: Abdomen Complete INDICATIONS: Recurrent pancreatitis. TECHNIQUE: Real-time scanning was performed of the abdominal and retroperitoneal organs, with image documentatio n. COMPARISON: CT abdomen pelvis 03/16/2020. FINDINGS: Limited exam secondary to multiple areas of overlying peristalsing bowel gas as well as ability for p atient positioning. Liver: Liver is enlarged with steatosis. Gallbladder: Gallbladder wall is at the upper limits of normal measuring 2.8 mm. Small amount of slud ge is identified. Biliary ducts: Intrahepatic bile ducts are non-dilated. Extrahepatic bile duct caliber measures 6.8 mm. Normal is 6-7 mm or less in diameter, or 10 mm or less post-cholecystectomy. Pancreas: Visualized portions of the pancreas are sonographically normal. There is no surrounding f luid. However, it is felt to be suboptimally evaluated. Spleen: Spleen is normal in size and homogeneous in echotexture. Kidneys: Kidneys are normal in size and echotexture. Right kidney measures 11.7 cm long; left kidne y measures 10.6 cm long. No hydronephrosis. Nonobstructing right mid pole calcification measuring 7 mm is present. Multiple nonobstructing calcifications are identified within the left kidney the large st in the inferior pole measuring 17 mm. No solid masses. Aorta: Visualized aorta is normal in caliber at less than 3 cm. Iliacs: Proximal common iliac arteries are normal in caliber at less than 2.5 cm. IVC: Intrahepatic inferior vena cava is patent. Miscellaneous: No gross free abdominal fluid. IMPRESSION: 1. No gross pancreatic inflammation or fluid. However, it is considered suboptimally evaluated. 2. Nonobstructing bilateral renal calculi. 3. Cholelithiasis with wall thickness at the upper limits of normal. Reviewed by: Dinora Cortes MD on 03/20/2020 8:09 AM PDT Approved by: Dinora Cortes MD on 03/20/2020 8:09 AM PDT Station ID: [id number]
[2020-03-20] MEDS ORDERED: LORATADINE 10 MG TABLET PO SCH (09:00)
[2020-03-20] MEDS: ACETAMINOPHEN 325 MG TABLET PO PRN (09:22)
[2020-03-20] MEDS: LORATADINE 10 MG TABLET PO SCH (09:23)
[2020-03-20] MEDS: SODIUM CHLORIDE FLUSH 0.9% 10 ML SYRINGE IVP SCH ×3 (09:23→23:39)
[2020-03-20] MEDS: ENOXAPARIN 40 MG/0.4 ML SYRINGE SUBQ SCH (09:24)
--- NOTE | 2020-03-20 09:24 | PROVIDER PROGRESS NOTE ---
Progress Note S: S/P Abd US. Revealed cholithiasis. Pending MRCP. Sx stable. O: Abd soft. A/P: Gallstone pancreatitis in patient with h/o of left lung wedge resection X2 for cancer. - Unknown pulmonary function, h/o COPD. - Recommend Paz, f/u MRCP first to check for ductal stones. - Should have Paz within 2 wks of attack, especially given recurrence. - Will sign out to Dr. Soares who is baton twirler.
[2020-03-20] MEDS: polyethylene glycoL 3350 17 GM PACKET PO SCH (10:04)
[2020-03-20] MEDS ORDERED: CARBOXYMETHYLCELLULOSE OPHTH DROPS EACHEYE PRN (16:13)
[2020-03-20] MEDS ORDERED: ALBUTEROL NEB 2.5 MG/3 ML INH PRN (17:24)
--- NOTE | 2020-03-20 17:24 | PROVIDER PROGRESS NOTE ---
Subjective - Prog Note Date Prog Note Date: 03/20/20 - Subjective Subjective: She complains of some abdominal pain that is located in epigastric region. She states it is controlled for the most part but is exacerbated after some meals. No nausea or vomiting. Current Medications - Current Medications Current Medications: Active Medications Acetaminophen (Tylenol) 650 mg PO Q4HR PRN PRN Reason: Pain 1 to 4 Last Admin: 03/20/20 09:22 Dose: 650 mg Documented by: Hydrocodone Bitart/Acetaminophen ([place] 5/325) 1 tab PO Q4HR PRN PRN Reason: PAIN Last Admin: 03/20/20 17:09 Dose: 1 tab Documented by: Carboxymethylcellulose (Refresh 1% Ophth Drops) 1 drops EACHEYE PRN PRN PRN Reason: Dry Eye Last Admin: 03/20/20 16:34 Dose: 1 amp Documented by: Docusate Sodium (Colace 250mg Capsule) 250 - 500 mg PO DAILY [facility] Last Admin: 03/20/20 09:22 Dose: 250 mg Documented by: Enoxaparin Sodium (Lovenox) 40 mg SUBQ DAILY [facility] Last Admin: 03/20/20 09:24 Dose: Not Given Documented by: Gabapentin (Neurontin) 100 mg PO TID PRN PRN Reason: Neuropathic Pain Last Admin: 03/20/20 12:29 Dose: 100 mg Documented by: Ipratropium [place] (Atrovent) 0.5 mg INH RTQ4H PRN PRN Reason: Shortness of Air/Wheezing Last Admin: 03/19/20 15:00 Dose: 0.5 mg Documented by: Levalbuterol HCl (Xopenex) 1.25 mg INH Q4H PRN PRN Reason: Shortness of Air/Wheezing Last Admin: 03/19/20 15:00 Dose: 1.25 mg Documented by: Loratadine (Claritin) 10 mg PO DAILY [facility] Last Admin: 03/20/20 09:23 Dose: 10 mg Documented by: Lorazepam (Ativan) 1 mg PO ONCE PRN PRN Reason: Anxiety Stop: 03/22/20 07:23 Last Admin: 03/20/20 16:33 Dose: 1 mg Documented by: Ondansetron HCl (Zofran Odt) 4 mg TL Q6HR PRN PRN Reason: Nausea / Vomiting Last Admin: 03/19/20 06:54 Dose: 4 mg Documented by: Polyethylene Glycol (Miralax) 17 gm PO DAILY [facility] Last Admin: 03/20/20 10:04 Dose: Not Given Documented by: Primidone (Mysoline) 50 mg PO BID PRN PRN Reason: ESSENTIAL TREMOR Saccharomyces Boulardii (Florastor) 250 mg PO BIDWM [facility] Last Admin: 03/20/20 07:54 Dose: 250 mg Documented by: Sodium Chloride (Normal Saline Flush 0.9%) 10 ml IVP PRN PRN PRN Reason: NEEDED PER PROVIDER ORDERS Last Admin: 03/18/20 20:15 Dose: 10 ml Documented by: Sodium Chloride (Normal Saline Flush 0.9%) 10 ml IVP 0100,0900,1700 [facility] Last Admin: 03/20/20 09:23 Dose: Not Given Documented by: Zolpidem Tartrate (Ambien) 5 mg PO QPM PRN PRN Reason: Insomnia Last Admin: 03/18/20 23:52 Dose: 5 mg Documented by: Acetaminophen [Tylenol Extra Strength] 500 - 1,000 mg PO TID PRN 02/29/20 Gabapentin 100 mg PO TID PRN 02/29/20 Ibuprofen [Advil] 200 mg PO DAILY PRN 02/29/20 Naproxen [Naprosyn] 500 mg PO BID PRN 02/29/20 Primidone [Mysoline] 50 mg PO BID PRN 02/29/20 Tizanidine HCl 4 mg PO DAILY PRN 02/29/20 Objective - Vital Signs/Intake & Output Reviewed Vital Signs: Yes Vital Signs: Vital Signs x48h Temp Pulse Resp BP Pulse Ox 03/20/20 16:00 37.0 C 89 20 155/42 H 95 Intake & Output: Intake & Output 03/17/20 03/18/20 03/19/20 03/20/20 23:59 23:59 23:59 23:59 Intake Total 3585.76 2031.417 520 Output Total 2 Balance 3585.76 2031.417 518 - Objective General Appearance: positive: No acute distress, Alert Eyes Bilateral: positive: Normal inspection, Conjunctivae nml ENT: positive: ENT inspection nml Neck: positive: Nml inspection Respiratory: positive: No respiratory distress. negative: Wheezes, Rales Cardiovascular: positive: No murmur, Tachycardia. negative: Bradycardia, Systolic murmur Abdomen: positive: Non-tender, No distention. negative: Tenderness, Guarding, Rebound Skin: positive: No rash, Warm, Dry Extremities: positive: Full ROM, No pedal edema Neurologic/Psychiatric: positive: Oriented x3 - Lab Results Fish Bones: 03/20/20 06:23 03/20/20 06:23 Other Labs: Lab Results x24hrs 03/20/20 03/20/20 Range/Units 06:23 06:23 WBC 7.3 (4.8-10.8) x10^3/uL RBC 3.71 L (4.20-5.40) 10^6/uL Hgb 11.5 L (12.0-16.0) g/dL Hct 35.2 L (37.0-47.0) % MCV 94.9 (81.0-99.0) fL MCH 31.0 (27.0-31.0) pg MCHC 32.7 (32.0-36.0) g/dL RDW 12.6 (12.0-15.0) % Plt Count 238 (130-450) 10^3/uL MPV 10.5 (7.9-10.8) fL Neut # (Auto) 4.8 (1.5-6.6) 10^3/uL Lymph # (Auto) 1.4 L (1.5-3.5) 10^3/uL [place] # (Auto) 0.8 (0.0-1.0) 10^3/uL Eos # (Auto) 0.4 (0.0-0.7) 10^3/uL Baso # (Auto) 0.0 (0.0-0.1) 10^3/uL Absolute Nucleated RBC 0.00 x10^3/uL Nucleated RBC % 0.0 /100WBC Sodium 143 (135-145) mmol/L Potassium 3.9 (3.5-5.0) mmol/L Chloride 100 L (101-111) mmol/L Carbon Dioxide 29 (21-32) mmol/L Anion Gap 14.0 H (6-13) BUN 10 (6-20) mg/dL Creatinine 0.7 (0.4-1.0) mg/dL Estimated GFR (MDRD) 83 L (>89) Glucose 117 H (70-100) mg/dL Calcium 9.4 (8.5-10.3) mg/dL Total Bilirubin 0.8 (0.2-1.0) mg/dL AST 20 (10-42) IU/L ALT 37 (10-60) IU/L Alkaline Phosphatase 62 (42-121) IU/L Total Protein 7.5 (6.7-8.2) g/dL Albumin 3.5 (3.2-5.5) g/dL Globulin 4.0 (2.1-4.2) g/dL Albumin/Globulin Ratio 0.9 L (1.0-2.2) Lipase 36 (22-51) U/L Sepsis Event Note (H) - Evaluation Current Stage of Sepsis: Ruled out Assessment/Plan - Problem List (1) Pancreatitis Impression: This is secondary to gallstone pancreatitis as repeat ultrasound this admission shows cholelithiasis. MRCP is pending to rule out obstruction although less likely given her normal LFTs. Discussed with general surgery who feels like she would be too high of a risk for cholecystectomy here. Plan will be to follow- up MRCP and if there is no obstruction, will discharge the patient to follow-up with general surgeon on outpatient basis to have a cholecystectomy at [facility] where she has had prior procedures. The patient is agreeable to this plan. She is claustrophobic and so we will give her a dose of oral lorazepam prior to MRCP. Qualifiers: Chronicity: acute Pancreatitis type: unspecified pancreatitis type Acute pancreatitis complication: no infection or necrosis Qualified Code(s): K85.90 - Acute pancreatitis without necrosis or infection, unspecified (2) COPD (chronic obstructive pulmonary disease) Impression: Stable and not in exacerbation. Albuterol as needed. (3) Pulmonary nodules Impression: She reports a history of left wedge resection for a pulmonary nodule. She has outpatient follow-up with her oncologist in April. (4) Chronic pain Impression: Stable. Continue home medications as needed.
[2020-03-20] MEDS ORDERED: GADOBUTROL 10 MMOL/10 ML VIAL ONE (17:43)
[2020-03-20] MEDS: SENNA 8.6 MG TABLET PO SCH (22:37)
[2020-03-21] MEDS: HYDROcod/ACETAM 5/325 MG TABLET PO PRN ×3 (06:11→17:28)
[2020-03-21] MEDS: DOCUSATE SODIUM 250 MG CAPSULE PO SCH (09:23)
[2020-03-21] MEDS: polyethylene glycoL 3350 17 GM PACKET PO SCH (09:23)
[2020-03-21] MEDS: SENNA 8.6 MG TABLET PO SCH (09:23)
[2020-03-21] MEDS: LORATADINE 10 MG TABLET PO SCH (09:25)
[2020-03-21] MEDS: SACCHAROMYCES BOULARDII 250 MG CAPSULE PO SCH ×2 (09:25→17:01)
[2020-03-21] MEDS: SODIUM CHLORIDE FLUSH 0.9% 10 ML SYRINGE IVP SCH (09:26)
[2020-03-21] MEDS: ENOXAPARIN 40 MG/0.4 ML SYRINGE SUBQ SCH (09:26)
[2020-03-21] MEDS ORDERED: BISACODYL 10 MG SUPP PR ONE (10:00)
[2020-03-21] MEDS ORDERED: GLYCERIN ADULT SUPP PR ONE (11:00)
[2020-03-21] MEDS ORDERED: SALINE ENEMA 133 ML BOTTLE RC ONE (11:25)
[2020-03-21] MEDS: GABAPENTIN 100 MG CAPSULE PO PRN (13:31)
--- NOTE | 2020-03-21 13:53 | Discharge Plan ---
Discharge Plan Problem Reviewed?: Yes Disposition: Home, Self Care Condition: Stable Prescriptions: HYDROcod/ACETAM 5/325 [[place] 5/325] 1 tab PO Q6HR PRN #20 tablet PRN Reason: Pain Loratadine [Claritin] 10 mg PO DAILY PRN #10 tablet PRN Reason: Allergy Symptoms Diet: Soft Activity Restrictions: Activity as Tolerated Shower Restrictions: No (fall precaution) Instruction Topics: Loratadine tablets, Acetaminophen Hydrocodone tablets or capsules, Pancreatitis, Pancreatitis Acute Dc Health Concerns: recurrent pancreatitis and small multiple pulmonary nodules. Plan of Treatment: you have recurrent pancreatitis. After treated in hospital, your pancreatitis was resolved. you have no abdominal pain, and you tolerated regular diet without nausea or vomiting, and you have bowel movement as well in the hospital. advise you hold your supplement medications such as KAVA or other supplement meds you took which could cause pancreatitis. Since [place] had good control for your chronic pain in the hospital. [place] is prescribed for you PRN. advise you hold your home meds Tylenol, Ibuprofen, Naproxen now. you were consulted with surgeon, it was concerned to have Gallstone pancreatitis but unfortunately you can not hold MRCP test and declined to have repeat MRCP test. you have no abdominal pain, and tolerate regular diet, and your pancreatitis was resolved. you state you will followup with outpatient GI surgeon to have further management if continue to have medical issue. You report you had left lung wedge resection X2 for cancer. You report you has outpatient follow-up with her oncologist in April for PET scan for your multiple small pulmonary nodules and possible a lesion at the left breast. advise you followup with OBGYN to have mammogram as well. Care Goals: stabilization and improvement of your medical conditions Assessment: discussed with you about the care plan, you understood and agreed. Additional Instructions or Follow Up instructions: you may followup with your PCP in one week, followup with GI surgeon and oncologist as outpatient. should your symptoms return or worsen, you may present ER or call 911 for help. No Smoking: If you smoke, Please STOP! Call for help. Follow-up with: Roseline Rogers MD [Primary Care Provider] -
--- NOTE | 2020-03-21 13:53 | DISCHARGE SUMMARY ---
Discharge Summary Admit Date: 03/16/20 Discharge Date: 03/21/20 Discharging Provider: Jarret Ventura Primary Care Provider: Meera Saldana Condition at Discharge: Stable Discharge Disposition: 01 Home, Self Care Discharge Facility Name: home - DIAGNOSES Admission Diagnoses: (1) recurrent Pancreatitis (2) Abdominal pain (3) History of COPD (4) HLD (hyperlipidemia) (5) Chronic pain (6)pulmonary nodules Discharge Diagnoses with Status of Each Condition: (1) recurrent Pancreatitis acute pancreatitis was resolved. Lipase is normal. pt has no abdominal pain, she tolerate regular diet without nausea and vomiting. Discussed with pt about the etiology to cause recurrent pancreatitis. She reported she took KAVA supplement in the first admission. she reported after she took KAVA she had abdominal pain. She was clearly advised to Hold her all supplement medications to avoid pancreatitis. She told me at this time admission she did not take any supp lemental medication special she did not take KAVA. However nurse still found she had KAVA in her purse. She told me she took two allergy medicines in the night before she was admitted at this time. She also stated she took any her PRN medicines as needed, she does not know home medications she took. She refused to adjust her home medications in the last time discharge. She had 7 medications in her home medication list but 6 medication was PRN. When she was admitted in the hospital, we will hold her home medication, next day her lipase significantly running down and patient's symptoms had a great improvement. She medicated by herself and medical noncompliance are one of her major reasons to cause she had recurrent pancreatitis. She had lipid panel test in the last admission, she had slightly elevated LDL and cholesterol level, and triglycerides. pt was Prescribed Lipitor 10 mg daily. Patient had ultrasound and CAT scan of her abdomen which show Cholelithiasis with wall thickness at upper limits of normal. GI surgeon was consulted and concerned gallstone pancreatitis. Patient refused an endoscopy for her she stated it was not useful at all to her. Patient was ordered to have MRCP, but the patient cannot finish because of her claustrophobic. We explained to the patient we can give her some medication that lead the patient finish this test, but She refused to have another try of MRCP. advise pt followup with her PCP and referral to GI surgeon at [facility] as outpatient. pt state she will see GI surgeon in [facility] as outpatient if she needs. (2) Abdominal pain Resolved, patient also tolerated regular diet without nausea and vomiting (3) History of COPD Stable, patient has no home medication for COPD. Patient report she has history of COPD and she quit smoking in the 2013. (4) HLD (hyperlipidemia) she had slightly elevated LDL and cholesterol level, and triglycerides. pt was Prescribed Lipitor 10 mg daily in the last admission. She state she does not believe this medication will work and she did not take any. She told the same thing in the last discharge to the discharge nurse. (5) Chronic pain Patient has good pain control with [place] in the hospital, she agreed hold her home Tylenol, ibuprofen and naproxen instead of prescription of the [place] (6)pulmonary nodules CAT scan of Abdomen show patient had multiple small pulmonary nodules at the each lung bases and possible lesion at the left breast. Discussed with the results with the patient, advised patient follow-up with her oncologist and RIG SUPERVISOR for further management, patient state she had PET scan in this April with her oncologist, advised patient follow-up with them. (7)medical noncompliance Patient has issue for medicated by herself and medical noncompliance, discussed with the patient and advised the patient follow-up with medical compliance, and followup with medical advise, and do not be medicated by herself. - HPI History of Present Illness: This is a 69-years old female with a past medical history significant for hyperlipidemia, hypothyroidism, COPD, chronic back pain, psoriasis, pancreatitis, multiple pulmonary nodules and followup with her oncologist, who Who presents ER for complaint of abdominal pain. Patient was admitted for pancreatitis about 2 weeks ago. at the time patient report he take Kava supplemental medicine. she reported after she took Kava then she have abdominal pain, but today she denies she take any more. Today she reports she took 2 anti- allergy medicine bought from [facility] on last night, Then she had abdominal pain on today morning. she state "I will never take any more all these meds again." she report her pain located at upper quadrant. The pain is like squeezing and similar with last time and does not radiate to other locations. On the last discharge, pt refused any change to her home meds. Pt had two NSAIDs PRN and Tylenol PRN, she state she took her home meds for long time and refused for any adjust. pt's lab test in the last time showed HLD, but pt stated to nurse she will not take any new prescribed meds. Patient reported she followed with her oncologist for her pulmonary nodule. she reported her surgeon removed her left upper lobe big nodule in the chest on last year. she will have PET scan in this April which was scheduled by her oncologist and she will follow-up with her oncologist. In routine test lab Lipase is over 4800. Her total bilirubin, AST, ALT all slightly were elevated. CAT scan of abdomen/pelvis Show multiple small nodules in the bilateral lung base, No sign of gallstone or pancreatic duct dilation, ther is acute pancreatitis involving pancreas head, neck and body. she denies chest pain, fever, chill, shortness of breath. pt is admitted for further medical management. - CONSULTS | PROCEDURES Consultations: Dr. Clemencia Taylor Procedures: no procedure - HOSPITAL COURSE Hospital Course: Patient was admitted for recurrent pancreatitis. patient had a bowel rest and had intravenous IV fluids, and pain control.Patient home medication was hold. After the treatment in the hospital, patient had significantly improved, abdominal pain was controlled, patient tolerated regular diet without nausea and vomiting. Lipase became normal.Patient had a concern to have gallstone pancreatitis, patient was consulted with GI surgeon. Unfortunately patient cannot tolerate MRCP test, patient refused to have EGD and a colonoscopy and declined further management in the hospital. The detailed hospital course please review the discharge diagnosis as well. In the morning 03/21/2020, Patient stated she cannot be discharged because her chronic headache come back. Then she told the nurse she has no bowel movement since she was admitted in the hospital, Then she can not be discharged.Actually patient had a bowel movement 2 days ago.Nursing initiated bowel protocol for the patient and patient had 2 to 3 time bowel movement But without diarrhea Or cramping or abdominal pain. Then patient state she cannot be discharged because she have more bowel movement. Patient was not happy because nurse called her son to grain picker her When she was discharged. In the end, patient state to nurse Godfrey she will write a long letter to hospital to express how much her appreciation and happiness in the hospital. - ALLERGIES Allergies/Adverse Reactions: Allergies Allergy/AdvReac Type Severity Reaction Status Date / Time aspirin Allergy Nausea Verified 03/16/20 08:51 Penicillins Allergy vomiting, Verified 03/16/20 08:51 visual changes oxycodone AdvReac Cramps Verified 03/19/20 07:06 - MEDICATIONS Home Medications: Ambulatory Orders Medication Instructions Recorded Confirmed Gabapentin 100 mg PO TID PRN 02/29/20 03/16/20 Primidone [Mysoline] 50 mg PO BID PRN 02/29/20 03/16/20 Tizanidine HCl 4 mg PO DAILY PRN 02/29/20 03/16/20 Atorvastatin [Lipitor] 10 mg PO QPM #10 tablet 03/03/20 03/16/20 HYDROcod/ACETAM 5/325 [[place] 5/325] 1 tab PO Q6HR PRN #20 tablet 03/21/20 Loratadine [Claritin] 10 mg PO DAILY PRN #10 tablet 03/21/20 - PHYSICAL EXAM AT DISCHARGE General Appearance: positive: No acute distress, Alert. negative: Lethargic Eyes Bilateral: positive: Normal inspection, PERRL, No lid inflammation ENT: positive: ENT inspection nml, No signs of dehydration. negative: Purulent nasal drainage, Dry mucous membranes Neck: positive: Nml inspection, Thyroid nml, Trachea midline. negative: Thyromegaly, Stiff neck, Tracheal deviation Respiratory: positive: Chest non-tender, No respiratory distress, Breath sounds nml. negative: Wheezes, Rales, Rhonchi Cardiovascular: positive: Regular rate & rhythm, No murmur, No gallop. negative: Tachycardia, Bradycardia, Systolic murmur, Diastolic murmur Peripheral Pulses: positive: 2+ Abdomen: positive: Non-tender, No organomegaly, Nml bowel sounds, No distention. negative: Tenderness, Guarding, Rebound Back: positive: Nml inspection. negative: CVA tenderness (R), CVA tenderness (L) Skin: positive: Color nml, No rash, Warm, Dry. negative: Cyanosis, Diaphoresis, Pallor, Skin rash Extremities: positive: Non-tender, Full ROM, Nml appearance. negative: Calf tenderness, Shelly's sign/cords Neurologic/Psychiatric: positive: Oriented x3, Motor nml, Sensation nml. negative: Weakness, Sensory loss, Facial droop, Slurred/abnml speech, Depressed mood/affect - LABS Result Diagrams: 03/20/20 06:23 03/20/20 06:23 - SEPSIS Current Stage of Sepsis: Ruled out - FOLLOW UP Follow Up: you have recurrent pancreatitis. After treated in hospital, your pancreatitis was resolved. you have no abdominal pain, and you tolerated regular diet without nausea or vomiting, and you have bowel movement as well in the hospital. advise you hold your supplement medications such as KAVA or other supplement meds you took which could cause pancreatitis. Since [place] had good control for your chronic pain in the hospital. [place] is prescribed for you PRN. advise you hold your home meds Tylenol, Ibuprofen, Naproxen now. you were consulted with surgeon, it was concerned to have Gallstone pancreatitis but unfortunately you can not hold MRCP test and declined to have repeat MRCP test. you have no abdominal pain, and tolerate regular diet, and your pancreatitis was resolved. you state you will followup with outpatient GI surgeon to have further management if continue to have medical issue. You report you had left lung wedge resection X2 for cancer. You report you has outpatient follow-up with her oncologist in April for PET scan for your multiple small pulmonary nodules and possible a lesion at the left breast. advise you followup with OBGYN to have mammogram as well. you may followup with your PCP in one week, followup with GI surgeon and oncologist as outpatient. should your symptoms return or worsen, you may present ER or call 911 for help. - TIME SPENT Time Spent in Discharge (Minutes): 45
[2020-03-21 16:09] VITALS: BP 147/78
[2020-03-22 12:34] LABS: ANA SCREEN NEGATIVE (NEGATIVE)
== END 2020-03-21 18:45 | disposition home or self-care (01) | DRG 440 ==
LOC: ED 08:46 → MS2 12:54
PROVIDERS: ADMIT Nurse Practitioner Gerontology; ATTEND Nurse Practitioner Gerontology
DX: K85.90 Acute pancreatitis without necrosis or infection, unspecified (principal); K85.10 Biliary acute pancreatitis without necrosis or infection; K86.1 Other chronic pancreatitis; K86.81 Exocrine pancreatic insufficiency; E78.00 Pure hypercholesterolemia, unspecified; M19.90 Unspecified osteoarthritis, unspecified site; G89.29 Other chronic pain; M54.9 Dorsalgia, unspecified; E66.3 Overweight; K80.20 Calculus of gallbladder without cholecystitis without obstruction; J44.9 Chronic obstructive pulmonary disease, unspecified; R91.8 Other nonspecific abnormal finding of lung field; E78.5 Hyperlipidemia, unspecified; E03.9 Hypothyroidism, unspecified; L40.9 Psoriasis, unspecified; E66.01 Morbid (severe) obesity due to excess calories; Z68.36 Body mass index [BMI] 36.0-36.9, adult; Z90.2 Acquired absence of lung [part of]; F40.240 Claustrophobia; R51 Headache; Z53.29 Procedure and treatment not carried out because of patient's decision for other reasons; Z91.14 Patient's other noncompliance with medication regimen; Z79.1 Long term (current) use of non-steroidal anti-inflammatories (NSAID); Z79.899 Other long term (current) drug therapy; Z85.118 Personal history of other malignant neoplasm of bronchus and lung; Z87.891 Personal history of nicotine dependence
CPT/HCPCS: 36415; 71045; 74177; 76700; 80053; 81001; 81599; 83605; 83690; 84443; 84484; 85025; 86038; 94640; 96361; 96374; 96376; 99285; A9270; J8499; Q0162; Q9967; 80306; 81003; 87086

== ENCOUNTER 2020-11-24 12:05 | Emergency (ER) | payer MEDICARE, MEDICAID ==
[2020-11-24] MEDS ORDERED: DEXAMETHASONE 10 MG/ML VIAL PO STA (12:42)
[2020-11-24] MEDS ORDERED: KETOROLAC 60 MG/2 ML VIAL IM STA (12:42)
--- NOTE | 2020-11-24 12:51 | ED Physician Documentation ---
History of Present Illness - Stated complaint Stated Complaint: LOW BACK PX - Chief complaint Chief Complaint: Back Pain - History obtained from History obtained from: Patient - History of Present Illness Timing: Chronic Pain level max: 8 Pain level now: 6 - Additonal information Additional information: 70-year-old female with chronic back pain presents to the emergency department with a right-sided back pain radiating to the right hip. Worse with movement and better with rest. No loss of bowel or bladder control. No fevers. No trauma. She is taking hydrocodone at home without relief. She is scheduled to see a neurologist and a "osteopath" for her back. Drove herself to the emergency department today and Ambulated into the department with a cane No IV drug use. Review of Systems Constitutional: denies: Fever, Chills Throat: denies: Sore throat Respiratory: denies: Cough GI: denies: Vomiting, Diarrhea Skin: denies: Rash Musculoskeletal: denies: Neck pain Neurologic: denies: Focal weakness, Numbness, Confused, Altered mental status, Headache PD PAST MEDICAL HISTORY - Past Medical History Past Medical History: Yes Cardiovascular: High cholesterol Respiratory: COPD Neuro: None Endocrine/Autoimmune: HyPOthyroidism GI: None SHIP SUPERINTENDENT: None : Kidney stones HEENT: Other Psych: None Musculoskeletal: Osteoarthritis, Chronic back pain Derm: Eczema, Psoriasis - Past Surgical History Past Surgical History: Yes /SHIP SUPERINTENDENT: Hysterectomy, Oophrectomy, Breast reduction Cardiovascular: Lobectomy, Other HEENT: Tonsil/Adenoidectomy - Present Medications Home Medications: Ambulatory Orders Medication Instructions Recorded Confirmed Gabapentin 100 mg PO TID PRN 02/29/20 03/16/20 Primidone [Mysoline] 50 mg PO BID PRN 02/29/20 03/16/20 Tizanidine HCl 4 mg PO DAILY PRN 02/29/20 03/16/20 Atorvastatin [Lipitor] 10 mg PO QPM #10 tablet 03/03/20 03/16/20 HYDROcod/ACETAM 5/325 [[place] 5/325] 1 tab PO Q6HR PRN #20 tablet 03/21/20 Loratadine [Claritin] 10 mg PO DAILY PRN #10 tablet 03/21/20 Meloxicam [Mobic] 7.5 mg PO BID PRN #20 tab 11/24/20 Methylprednisolone [Medrol] 4 mg PO DAILY #1 11/24/20 Oxycodone HCl/Acetaminophen 1 - 2 each PO Q6H PRN #14 tab 11/24/20 [Percocet 5-325 mg Tablet] - Allergies Allergies/Adverse Reactions: Allergies Allergy/AdvReac Type Severity Reaction Status Date / Time aspirin Allergy Nausea Verified 11/24/20 12:15 Penicillins Allergy vomiting, Verified 11/24/20 12:15 visual changes - Social History Does the pt smoke?: No Smoking Status: Never smoker Does the pt drink ETOH?: No Does the pt have substance abuse?: No Substance Use and Type: Marijuana - Immunizations Immunizations are current?: Yes - POLST Patient has POLST: No PD ED PE NORMAL - Vitals Vital signs reviewed: Yes - General General: Alert and oriented X 3, No acute distress - HEENT HEENT: Moist mucous membranes - Neck Neck: Supple, no meningeal sign - Cardiac Cardiac: RRR - Respiratory Respiratory: No respiratory distress, Clear bilaterally - Abdomen Abdomen: Soft, Non tender, Non distended - Back Back: Other (Tender to palpation over the right SI joint. Reproduces her pain. No midline tenderness palpation or percussion.) - Derm Derm: Warm and dry - Extremities Extremities: No edema, No calf tenderness / cord - Neuro Neuro: Alert and oriented X 3, No motor deficit, No sensory deficit, Other (Normal bilateral lower extremity patellar and ankle jerk reflexes. Normal great toe extension bilaterally. no saddle anesthesia) Results - Vitals Vitals: Vital Signs - 24 hr 11/24/20 11/24/20 12:10 13:21 Temperature 36.4 C L 36.5 C Heart Rate 99 85 Respiratory 16 18 Rate Blood Pressure 135/75 H 139/82 H O2 Saturation 95 96 Oxygen O2 Source Room air - Rads (name of study) Lumbar spine x-ray Radiology: Prelim report reviewed, EMP read contemporaneously, See rad report PD MEDICAL DECISION MAKING - ED course Complexity details: reviewed results, re-evaluated patient, considered differential (No cauda equina, no spinal epidural abscess, no fracture, no aortic dissection or evidence of aneursym rupture), d/w patient ED course: 70-year-old female presents to the emergency department with right-sided sciatica and low back pain. No evidence of cauda equina, epidural abscess. We will place her on pain medication for home as well as a steroid taper. Patient is ambulating with a cane. She will use this in the left hand. Patient is well-appearing, nontoxic. Afebrile. No acute findings on x-ray. Patient counseled regarding signs and symptoms for which I believe and urgent re- evaluation would be necessary. Patient with good understanding of and agreement to plan and is comfortable going home at this time This document was made in part using voice recognition software. While efforts are made to proofread this document, sound alike and grammatical errors may occur. Multilevel degenerative disc disease. Multilevel facet hypertrophy. No fracture. No acute osseous lesion. If there is continued clinical concern for pathology, MRI should be considered for further evaluation. Departure - Departure Disposition: Home, Self Care Clinical Impression: Sciatica Qualifiers: Laterality: right Qualified Code(s): M54.31 - Sciatica, right side Condition: Good Instructions: ED Sciatica Follow-Up: Roseline Rogers MD [Primary Care Provider] - Within 1 week Prescriptions: Methylprednisolone [Medrol] 4 mg PO DAILY #1 Meloxicam [Mobic] 7.5 mg PO BID PRN #20 tab PRN Reason: Pain Oxycodone HCl/Acetaminophen [Percocet 5-325 mg Tablet] 1 - 2 each PO Q6H PRN #14 tab PRN Reason: pain Comments: Follow-up with your doctor for further care. Use the medications as prescribed. Your doctor will likely want to perform an MRI of your lumbar spine. This will help to evaluate the nerves and discs. Return if you worsen. Do not drink alcohol or drive while on narcotic pain medicine. Note that many narcotic pain relievers also contain tylenol/acetaminophen. Please ensure that your total dose of acetaminophen from all sources does not exceed 3 grams (3000mg) per day. You may constipated on this medication, take a stool softener such as "Colace" twice a day while you are on it. Also recommend a [id number] laxative such as senna or MiraLAX any day that you do not have a bowel movement. If you received narcotic pain medication in the emergency department, do not drive or operate machinery for the next 24 hours. X-ray results: Multilevel degenerative disc disease. Multilevel facet hypertrophy. No f racture. No acute osseous lesion. If there is continued clinical concern for pathology, MRI should be considered for further evaluation.
[2020-11-24 13:22] VITALS: BP 139/82
--- NOTE | 2020-11-24 13:54 | XRAY Report ---
PROCEDURE: Lumbar Spine 2 View INDICATIONS: low back pain, R sided TECHNIQUE: 2 views of the lumbar spine were acquired. COMPARISON: 03/15/2014. FINDINGS: Bones: 5 [id number] vertebrae are present. There is normal bony alignment. Mild convex left cu rvature of the thoracolumbar spine. No vertebral body compression fractures. No suspicious bony lesi ons. Moderate to severe L1-L2 degenerative disease. Moderate L2-L3 degenerative disc disease. Mild L3 -L4, L4-L5 and L5-S1 degenerative disease. Mild L4-L5 and L5-S1 facet arthropathy. Soft tissues: Overlying bowel gas pattern is normal. No suspicious soft tissue calcifications. IMPRESSION: 1. Multilevel degenerative disc disease. 2. Multilevel facet hypertrophy. 3. No fracture. No acute osseous lesion. If there is continued clinical concern for pathology, then M RI should be considered for further evaluation. Reviewed by: Tamera Velazco MD, PhD on 11/24/2020 1:53 PM PST Approved by: Tamera Velazco MD, PhD on 11/24/2020 1:53 PM PST Station ID: [id number]
== END 2020-11-24 14:13 | disposition home or self-care (01) ==
LOC: ED 12:05
DX: M54.31 Sciatica, right side (principal); M51.36 Other intervertebral disc degeneration, lumbar region
CPT/HCPCS: 96372; 99283; 99284

== ENCOUNTER 2020-11-26 07:58 | Outpatient (CLI) | payer MEDICARE, MEDICAID | END 2020-11-26 07:59 | disposition critical access hospital (66) | LOC: EMS 07:58 | PROVIDERS: ATTEND Emergency Medicine | DX: M54.5 Low back pain (principal); M54.2 Cervicalgia; M79.605 Pain in left leg; M79.604 Pain in right leg | CPT/HCPCS: A0425; A0429 ==

== ENCOUNTER 2020-11-26 08:14 | Emergency (ER) | payer MEDICARE, MEDICAID ==
[2020-11-26] MEDS ORDERED: LORazepam 2 MG/ML VIAL IVP STA (08:22)
[2020-11-26] MEDS ORDERED: SODIUM CHLORIDE 0.9% 1,000 ML IV STA (08:22)
[2020-11-26] MEDS ORDERED: KETAMINE 40 MG in SODIUM CHLORIDE 0.9% 100ML 100 ML IV STA (08:22)
--- NOTE | 2020-11-26 08:27 | ED Physician Documentation ---
PD HPI BACK PAIN - Stated complaint Stated Complaint: BACK PX - Chief complaint Chief Complaint: Back Pain - History obtained from History obtained from: Patient, EMS - Additional information Additional information: 70-year-old woman with chronic back pain, hyperlipidemia, hypothyroidism, COPD, history of pancreatitis and pulmonary nodules presents with worsening of chronic back pain. She says she has had back pain for years and was maintained on hydrocodone for that by her physician. For 5 days ago it suddenly got worse while she was walking up the stairs. Now radiates down the right leg without weakness, numbness, or tingling in the leg or saddle area. No incontinence. She was seen here couple of days ago and was prescribed steroids, oxycodone, and muscle relaxers. She has been taking this but the pain is still intolerable. She denies fevers or chills. Review of Systems Ten Systems: 10 systems reviewed and negative Constitutional: denies: Fever, Chills Eyes: denies: Loss of vision, Decreased vision Ears: denies: Loss of hearing, Ear pain Nose: denies: Rhinorrhea / runny nose, Congestion Throat: denies: Sore throat Cardiac: denies: Chest pain / pressure, Palpitations PD PAST MEDICAL HISTORY - Past Medical History Cardiovascular: High cholesterol Respiratory: COPD Neuro: None Endocrine/Autoimmune: HyPOthyroidism GI: None LINE REPAIRER: None : Kidney stones HEENT: Other Psych: None Musculoskeletal: Osteoarthritis, Chronic back pain Derm: Eczema, Psoriasis - Past Surgical History Past Surgical History: Yes /LINE REPAIRER: Hysterectomy, Oophrectomy, Breast reduction Cardiovascular: Lobectomy, Other HEENT: Tonsil/Adenoidectomy - Present Medications Home Medications: Ambulatory Orders Medication Instructions Recorded Confirmed Gabapentin 100 mg PO TID PRN 02/29/20 11/26/20 Primidone [Mysoline] 50 mg PO BID PRN 02/29/20 11/26/20 Tizanidine HCl 4 mg PO DAILY PRN 02/29/20 11/26/20 Atorvastatin [Lipitor] 10 mg PO QPM #10 tablet 03/03/20 11/26/20 HYDROcod/ACETAM 5/325 [[place] 5/325] 1 tab PO Q6HR PRN #20 tablet 03/21/20 11/26/20 Loratadine [Claritin] 10 mg PO DAILY PRN #10 tablet 03/21/20 11/26/20 Meloxicam [Mobic] 7.5 mg PO BID PRN #20 tab 11/24/20 11/26/20 Methylprednisolone [Medrol] 4 mg PO DAILY #1 11/24/20 11/26/20 Oxycodone HCl/Acetaminophen 1 - 2 each PO Q6H PRN #14 tab 11/24/20 11/26/20 [Percocet 5-325 mg Tablet] Gabapentin [Neurontin] 300 mg PO TID #60 11/26/20 oxyCODONE [Roxicodone] 2 tab PO Q6HR PRN #30 11/26/20 - Allergies Allergies/Adverse Reactions: Allergies Allergy/AdvReac Type Severity Reaction Status Date / Time aspirin Allergy Nausea Verified 11/26/20 08:22 Penicillins Allergy vomiting, Verified 11/26/20 08:22 visual changes - Social History Does the pt smoke?: No Smoking Status: Never smoker Does the pt drink ETOH?: No Does the pt have substance abuse?: No - Immunizations Immunizations are current?: Yes - POLST Patient has POLST: No PD ED PE NORMAL - Vitals Vital signs reviewed: Yes - General General: Alert and oriented X 3 (No obvious distress but she does cry in pain because of the blood pressure cuff and winces with movement) - HEENT HEENT: PERRL, EOMI - Neck Neck: Supple, no meningeal sign, No bony TTP - Cardiac Cardiac: RRR, No murmur - Respiratory Respiratory: No respiratory distress, Clear bilaterally - Abdomen Abdomen: Normal bowel sounds, Soft, Non tender - Back Back: No CVA TTP, No spinal TTP - Derm Derm: Normal color, Warm and dry - Extremities Extremities: Other (The patient has equal and normal Achilles and patellar reflexes bilaterally. Normal sensation in all areas of the legs. Patient denies saddle anesthesia. Normal strength in flexion-extension at the ankles, knees, and flexion of the hips.) - Neuro Neuro: Alert and oriented X 3, Normal speech Results - Vitals Vitals: Vital Signs - 24 hr 11/26/20 11/26/20 11/26/20 08:17 09:45 11:09 Temperature 36.2 C L Heart Rate 86 80 78 Respiratory 16 16 16 Rate Blood Pressure 127/78 151/91 H 162/106 H O2 Saturation 96 96 98 11/26/20 12:17 Temperature Heart Rate 74 Respiratory 16 Rate Blood Pressure 154/100 H O2 Saturation 98 Oxygen O2 Source Room air - Labs Labs: Laboratory Tests 11/26/20 11/26/20 08:33 08:33 WBC 6.0 RBC 4.12 L Hgb 12.6 Hct 39.0 MCV 94.7 MCH 30.6 MCHC 32.3 RDW 12.6 Plt Count 206 MPV 10.8 Neut # (Auto) 3.7 Lymph # (Auto) 1.4 L [place] # (Auto) 0.8 Eos # (Auto) 0.1 Baso # (Auto) 0.0 Absolute Nucleated RBC 0.00 Nucleated RBC % 0.0 Sodium 145 Potassium 4.4 Chloride 101 Carbon Dioxide 28 Anion Gap 16.0 H BUN 23 H Creatinine 0.8 Estimated GFR (MDRD) 71 L Glucose 124 H Calcium 10.5 H Ethyl Alcohol < 5.0 - Rads (name of study) CT L Spine Radiology: EMP read contemporaneously (Left renal pelvic calculus associated with mild left hydronephrosis. Multilevel DDD; multiple ptosis L4-L5 right where there is possible L4 nerve root compression. Bilateral nephrolithiasis.) PD MEDICAL DECISION MAKING - ED course ED course: This 70-year-old woman has radicular low back pain on the right, corresponding to a finding on CT of L4-L5 right-sided neuroforaminal stenosis. She seemed to have a exaggerated pain response, crying uncontrollably with the blood pressure cuff or an IV. As such I felt ketamine would be a good initial option and she was administered 40 mg of ketamine and 1 mg of Ativan IV. She was feeling pretty good albeit a little high with the ketamine. No other adverse reaction. No bad trip. Her pain came back pretty bad though and this was followed with divided doses of medication with significant improvement. She passed a road test. She has to be admitted for an MRI, I discussed with her that we could admit her for pain control but not necessarily for an MRI and after that she declined and wanted to go home. Departure - Departure Disposition: 01 Home, Self Care Clinical Impression: Back pain Qualifiers: Back pain location: low back pain Chronicity: acute Back pain laterality: right Sciatica presence: with sciatica Sciatica laterality: sciatica of right side Qualified Code(s): M54.41 - Lumbago with sciatica, right side Condition: Good Record reviewed to determine appropriate education?: Yes Instructions: ED Neck Back Pain General Prescriptions: oxyCODONE [Roxicodone] 2 tab PO Q6HR PRN #30 PRN Reason: Pain Gabapentin [Neurontin] 300 mg PO TID #60 Comments: CT imaging and your symptoms suggest the compression of the L4-L5 nerve on the right which is causing her pain. You definitely need to follow-up with your doctor and talk about a MRI, but there is not urgency to this. I would stop the muscle relaxer, but continue your steroids. I am increasing the dose of your gabapentin and oxycodone in the interim. Do not drink or drive while taking the pain medications. They will make you constipated so pick and shovel man a laxative when you go to the pharmacy and drink plenty of fluids.
[2020-11-26 08:48] LABS: BASOPHILS % (AUTO) 0.3 %; EOSINOPHILS # (AUTO) 0.1 10^3/uL (0.0-0.7); EOSINOPHILS % (AUTO) 1.5 %; HGB - HEMOGLOBIN 12.6 g/dL (12.0-16.0); LYMPHOCYTES # (AUTO) 1.4 10^3/uL (1.5-3.5); LYMPHOCYTES % (AUTO) 22.9 %; MEAN CORPUSCULAR HEMOGLOBIN 30.6 pg (27.0-31.0); MEAN CORPUSCULAR HGB CONC 32.3 g/dL (32.0-36.0); MEAN CORPUSCULAR VOLUME 94.7 fL (81.0-99.0); MEAN PLATELET VOLUME 10.8 fL (7.9-10.8); MONOCYTES # (AUTO) 0.8 10^3/uL (0.0-1.0); MONOCYTES % (AUTO) 13.1 %; NEUTROPHILS # (AUTO) 3.7 10^3/uL (1.5-6.6); PLT - PLATELET COUNT 206 10^3/uL (130-450); RED BLOOD COUNT 4.12 10^6/uL (4.20-5.40); RED CELL DISTRIBUTION WIDTH 12.6 % (12.0-15.0)
[2020-11-26 08:58] LABS: BUN - BLOOD UREA NITROGEN 23 mg/dL (6-20); CALCIUM 10.5 mg/dL (8.5-10.3); CARBON DIOXIDE - CO2 28 mmol/L (21-32); CHLORIDE 101 mmol/L (101-111); CREATININE 0.8 mg/dL (0.4-1.0); ETOH - ETHANOL < 5.0 mg/dL; GFR - MDRD 71 (>89); GLUCOSE 124 mg/dL (70-100); POTASSIUM 4.4 mmol/L (3.5-5.0); SODIUM 145 mmol/L (135-145)
--- NOTE | 2020-11-26 09:23 | CT Report ---
PROCEDURE: LUMBAR SPINE WO INDICATIONS: intractable back pain TECHNIQUE: Noncontrast 3 mm thick sections acquired from the T12 level to the sacrum. Sagittal and coronal refo rmats were constructed. For radiation dose reduction, the following was used: automated exposure co ntrol, adjustment of mA and/or kV according to patient size. COMPARISON: Plain films of the lumbar spine dated 11/24/2020 FINDINGS: Image quality: Excellent. Bones: There is loss of normal lumbar lordosis. No acute vertebral body compression fractures. No s uspicious lytic or blastic bony lesions. Multilevel disc space narrowing and endplate osteophyte form ation. Multilevel facet hypertrophy. Mild multilevel canal stenoses. Multilevel foraminal stenoses, w orst at L4-L5 on the right where there is severe foraminal stenosis with possible L4 nerve root compr ession. No pars defects. Soft tissues: No retroperitoneal masses or hematomas. Visualized aorta is normal in caliber. Bilate ral renal calculi are present. There is a 12 mm diameter left renal pelvic calculus, associated with mild left hydronephrosis. No right hydronephrosis. IMPRESSION: 1. Left renal pelvic calculus associated with mild left hydronephrosis. 2. Multilevel degenerative disc and facet disease. 3. Multilevel foraminal stenoses, worst at L4-L5 on the right where there is possible L4 nerve root c ompression. Recommend correlation with clinical symptoms to ascertain relevance of this finding. This could be confirmed with MRI, if clinically indicated. 4. Bilateral renal calculi. Reviewed by: Eamon Riley MD on 11/26/2020 8:21 AM [facility] Approved by: Eamon Riley MD on 11/26/2020 8:21 AM [facility] Station ID: [id number]
[2020-11-26] MEDS ORDERED: KETOROLAC 30 MG/ML VIAL IVP STA ×2 (10:50→12:06)
[2020-11-26] MEDS ORDERED: GABAPENTIN 100 MG CAPSULE PO STA (10:50)
[2020-11-26] MEDS ORDERED: MORPHINE 10 MG/ML VIAL IVP STA (10:50)
[2020-11-26] MEDS ORDERED: oxyCODONE 5 MG TABLET PO STA (12:06)
[2020-11-26 13:48] VITALS: BP 143/96
== END 2020-11-26 14:20 | disposition home or self-care (01) ==
LOC: EDUNIT# → ED 08:14
DX: M54.41 Lumbago with sciatica, right side (principal); M99.53 Intervertebral disc stenosis of neural canal of lumbar region
CPT/HCPCS: 36415; 72131; 80048; 85025; 96365; 96375; 96376; 99284; A9270; G0480; J2060; 80320

== ENCOUNTER 2021-02-08 17:45 | Emergency (ER) | payer MEDICARE, MEDICAID | END 2021-02-08 18:00 | disposition left against medical advice (07) | LOC: ED 17:45 | DX: Z53.21 Procedure and treatment not carried out due to patient leaving prior to being seen by health care provider (principal) ==

== ENCOUNTER 2022-01-15 06:49 | Emergency (ER) | payer MEDICARE, MEDICAID ==
--- NOTE | 2022-01-15 07:25 | ED Physician Documentation ---
PD HPI CHEST PAIN - Stated complaint Stated Complaint: L SIDE RIB PX - Chief complaint Chief Complaint: Ext Problem - History obtained from History obtained from: Patient - History of Present Illness Timing - onset: How many days ago (2) Timing - onset during: Light activity (she reached for toilet roll in bathroom while seated and felt a pop in left lateral chest/ribs, with pain on movement and palpation since. ALso noted dark stools today. NO change in meds nor diet. Occasional NSAID use for pains.) Timing - details: Abrupt onset, Still present Quality: Aching, Sharp, Pain Location: Left chest (laterally) Radiation: No: Neck, Back, Abdominal Improved by: Rest Worsened by: Inspiration, Movement, Palpation Associated symptoms: No: Shortness of air, Nausea, Cough Similar symptoms before: Has not had sx before Recently seen: Not recently seen Review of Systems Constitutional: denies: Fever, Chills Nose: denies: Rhinorrhea / runny nose, Congestion Throat: denies: Sore throat Respiratory: reports: Cough (some cough the past week.). 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 TECHNOLOGIST: Hysterectomy, Oophrectomy, Breast reduction Cardiovascular: Lobectomy, Other HEENT: Tonsil/Adenoidectomy - Present Medications Home Medications: Ambulatory Orders Medication Instructions Recorded Confirmed Primidone [Mysoline] 50 mg PO BID PRN 02/29/20 01/15/22 Tizanidine HCl 4 mg PO DAILY PRN 02/29/20 01/15/22 Loratadine [Claritin] 10 mg PO DAILY PRN #10 tablet 03/21/20 01/15/22 Meloxicam [Mobic] 7.5 mg PO BID PRN #20 tab 11/24/20 01/15/22 Oxycodone HCl/Acetaminophen 1 - 2 each PO Q6H PRN #14 tab 11/24/20 01/15/22 [Percocet 5-325 mg Tablet] Gabapentin [Neurontin] 300 mg PO TID #60 02/28/21 04/19/22 Acetaminophen [Pain Relief Extra 500 mg PO Q6HR PRN 01/15/22 01/15/22 Strength] Albuterol Sulfate [Proair Hfa 1 - 2 puffs INH Q4H PRN 01/15/22 01/15/22 Inhaler] Atorvastatin [Lipitor] 40 mg PO QPM 01/15/22 01/15/22 Azelastine HCl 1 drops OP BID PRN 01/15/22 01/15/22 Baclofen [Lioresal] 10 mg PO TID PRN 01/15/22 01/15/22 Cholecalciferol (Vitamin D3) 125 mcg PO DAILY 01/15/22 01/15/22 [Vitamin D3] Montelukast [Singulair] 10 mg PO QPM 01/15/22 01/15/22 Vitamin B Complex Vit C No.3 [B 1 each PO DAILY 01/15/22 01/15/22 Complex with Vitamin C] oxyCODONE [Roxicodone] 5 mg ORAL Q6HR PRN 01/15/22 01/15/22 - Allergies Allergies/Adverse Reactions: Allergies Allergy/AdvReac Type Severity Reaction Status Date / Time aspirin Allergy Nausea Verified 01/15/22 06:58 Penicillins Allergy vomiting, Verified 01/15/22 06:58 visual changes - Social History Does the pt smoke?: No Smoking Status: Never smoker Does the pt drink ETOH?: No Does the pt have substance abuse?: No - Immunizations Immunizations are current?: Yes - POLST Patient has POLST: No PD ED PE NORMAL - Vitals Vital signs reviewed: Yes - General General: Alert and oriented X 3, Well developed/nourished, Other (high BMI) - Neck Neck: Supple, no meningeal sign, No adenopathy - Cardiac Cardiac: RRR, No murmur - Respiratory Respiratory: No respiratory distress, Clear bilaterally, Other (chest wall tender left lateral soft tissue and ribs, without crepitance nor deformity. ) - Abdomen Abdomen: Soft, Non tender - Rectal Rectal: Other (soft stool in vault, dark brown color. Guaic sample obtained. ) - Back Back: No CVA TTP - Derm Derm: Normal color, Warm and dry, No rash - Extremities Extremities: Normal ROM s pain, No calf tenderness / cord - Neuro Neuro: Alert and oriented X 3, No motor deficit, Normal speech Results - Vitals Vitals: Oxygen O2 Source Room air - Labs Labs: Microbiology 01/15/22 07:44 Occult Blood - Final Stool - Soft Consistency Laboratory Tests 01/15/22 01/15/22 08:00 08:00 WBC 6.6 RBC 4.06 L Hgb 13.2 Hct 38.3 MCV 94.3 MCH 32.5 H MCHC 34.5 RDW 12.6 Plt Count 214 MPV 10.7 Neut # (Auto) 4.5 Lymph # (Auto) 1.2 L [place] # (Auto) 0.8 Eos # (Auto) 0.1 Baso # (Auto) 0.0 Absolute Nucleated RBC 0.00 Nucleated RBC % 0.0 Sodium 141 Potassium 4.4 Chloride 105 Carbon Dioxide 26 Anion Gap 10.0 BUN 17 Creatinine 0.7 Estimated GFR (MDRD) 82 L Glucose 114 H Calcium 9.8 Total Bilirubin 0.3 AST 18 ALT 20 Alkaline Phosphatase 52 Total Protein 7.6 Albumin 4.1 Globulin 3.5 Albumin/Globulin Ratio 1.2 Lipase 33 - Rads (name of study) ribs with chest Radiology: Prelim report reviewed (no acute process), See rad report PD MEDICAL DECISION MAKING - ED course Complexity details: reviewed results (guiac test is negative. chest xray is normal. Has tenderness of chestwall and hurts with movement. NO rash seen. ), considered differential, d/w patient Departure - Departure Disposition: 01 Home, Self Care Clinical Impression: Acute chest wall pain, Dark stools Condition: Stable Record reviewed to determine appropriate education?: Yes Instructions: ED Chest Pain Costochondritis Follow-Up: Roseline Rogers MD [Primary Care Provider] - Comments: Your chest x-ray and ribs do not show any obvious fractures nor lung injury. What would not be seen on imaging would be some irritation or inflammation of the cartilage at the lower margin of the ribs. This is where you are tender so I presume some inflammation or looseness of the lower rib cartilage. This should improve regarding the pain over the next several days to week. Continue with your meloxicam once or twice daily with food. Add also continue your Tylenol and gabapentin. Add your oxycodone pain medicines when needed for pain. Your blood count is normal. The guaiac test on your stool does not show any blood. Unclear why it is dark-colored but there is no blood in the stool. Your surgical wound appears normal at this time without any signs of infection. Discharge Date/Time: 01/15/22 09:16
[2022-01-15] MEDS ORDERED: HYDROmorphone 2 MG/ML VIAL IM STA (07:51)
[2022-01-15 08:04] LABS: BASOPHILS % (AUTO) 0.5 %; EOSINOPHILS # (AUTO) 0.1 10^3/uL (0.0-0.7); HCT - HEMATOCRIT 38.3 % (37.0-47.0); HGB - HEMOGLOBIN 13.2 g/dL (12.0-16.0); LYMPHOCYTES # (AUTO) 1.2 10^3/uL (1.5-3.5); LYMPHOCYTES % (AUTO) 17.5 %; MEAN CORPUSCULAR HEMOGLOBIN 32.5 pg (27.0-31.0); MEAN CORPUSCULAR HGB CONC 34.5 g/dL (32.0-36.0); MEAN CORPUSCULAR VOLUME 94.3 fL (81.0-99.0); MEAN PLATELET VOLUME 10.7 fL (7.9-10.8); MONOCYTES # (AUTO) 0.8 10^3/uL (0.0-1.0); MONOCYTES % (AUTO) 11.4 %; NEUTROPHILS # (AUTO) 4.5 10^3/uL (1.5-6.6); NEUTROPHILS % (AUTO) 68.4 %; PLT - PLATELET COUNT 214 10^3/uL (130-450); RED BLOOD COUNT 4.06 10^6/uL (4.20-5.40); RED CELL DISTRIBUTION WIDTH 12.6 % (12.0-15.0); WHITE BLOOD COUNT 6.6 x10^3/uL (4.8-10.8)
[2022-01-15 08:16] LABS: ALBUMIN 4.1 g/dL (3.2-5.5); ALBUMIN/GLOBULIN RATIO 1.2 (1.0-2.2); BILIRUBIN,TOTAL 0.3 mg/dL (0.2-1.0); CALCIUM 9.8 mg/dL (8.5-10.3); CREATININE 0.7 mg/dL (0.4-1.0); POTASSIUM 4.4 mmol/L (3.5-5.0); TOTAL PROTEIN 7.6 g/dL (6.7-8.2)
[2022-01-15] MEDS ORDERED: MORPHINE 10 MG/ML VIAL IM STA (08:25)
--- NOTE | 2022-01-15 08:41 | XRAY Report ---
PROCEDURE: Ribs w/PA Chest LT INDICATIONS: left lower chest pain/tenderness TECHNIQUE: 2 views of the left ribs were acquired, along with a single view chest. COMPARISON: March 17, 2020. It FINDINGS: SUPPORT DEVICES: None. LUNGS/PLEURA: Coarsened interstitial markings. No focal consolidation, pleural effusion or space-occu pying pneumothorax. MEDIASTINUM: The cardiomediastinal silhouette is within normal limits. BONES/SOFT TISSUES: No acute abnormality. Specifically, no acute, displaced left rib fractures apprec iated. IMPRESSION: 1.No acute cardiopulmonary abnormality. 2.No acute, displaced left rib fracture. If patient's pain persists, consider bone scan for further e valuation. Reviewed by: Gama Howard MD on 01/15/2022 8:40 AM PDT Approved by: Gama Howard MD on 01/15/2022 8:40 AM PDT Station ID: [id number]
[2022-01-15 09:11] VITALS: BP 118/72
== END 2022-01-15 09:16 | disposition home or self-care (01) ==
LOC: ED 06:49
DX: R07.89 Other chest pain (principal); K92.1 Melena
CPT/HCPCS: 36415; 80053; 82272; 83690; 85025; 96372; 99282; 99284

== ENCOUNTER 2022-07-21 07:09 | Outpatient (CLI) | payer MEDICARE, MEDICAID | END 2022-07-21 07:10 | disposition critical access hospital (66) | LOC: EMS 07:09 | DX: M54.50 Low back pain, unspecified (principal) | CPT/HCPCS: A0425; A0429 ==

== ENCOUNTER 2022-07-21 07:25 | Emergency (ER) | payer MEDICARE, MEDICAID ==
[2022-07-21] MEDS ORDERED: DEXAMETHASONE 10 MG/ML VIAL IM STA (07:34)
[2022-07-21] MEDS ORDERED: MORPHINE 10 MG/ML VIAL IM STA (07:34)
--- NOTE | 2022-07-21 07:39 | ED Physician Documentation ---
PD HPI BACK PAIN - Stated complaint Stated Complaint: LOW BACK PX - Chief complaint Chief Complaint: Back Pain - History obtained from History obtained from: Patient - Additional information Additional information: 72-year-old woman with chronic low back pain presents with an exacerbation starting about 2 weeks ago. She thinks it might of started after lifting a suitcase about 19 days ago, but she did not actually have pain at that point. Pain is in the low back, lower than her usual pain and radiating down the left leg. It is not associated with numbness, tingling, fevers, saddle anesthesia, or new incontinence. She went to see her doctor and was given oxycodone which was modestly helpful. She is chronically on baclofen and also takes as needed to tizanidine although that gives her too much of a dry mouth. So she does not like it. She is intolerant of all NSAIDs because it flares her eczema. 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5 mg PO BID PRN #20 tab 11/24/20 01/15/22 Oxycodone HCl/Acetaminophen 1 - 2 each PO Q6H PRN #14 tab 11/24/20 01/15/22 [Percocet 5-325 mg Tablet] Gabapentin [Neurontin] 300 mg PO TID #60 11/26/20 01/15/22 Acetaminophen [Pain Relief Extra 500 mg PO Q6HR PRN 01/15/22 01/15/22 Strength] Albuterol Sulfate [Proair Hfa 1 - 2 puffs INH Q4H PRN 01/15/22 01/15/22 Inhaler] Atorvastatin [Lipitor] 40 mg PO QPM 01/15/22 01/15/22 Azelastine HCl 1 drops OP BID PRN 01/15/22 01/15/22 Baclofen [Lioresal] 10 mg PO TID PRN 01/15/22 01/15/22 Cholecalciferol (Vitamin D3) 125 mcg PO DAILY 01/15/22 01/15/22 [Vitamin D3] Montelukast [Singulair] 10 mg PO QPM 01/15/22 01/15/22 Vitamin B Complex Vit C No.3 [B 1 each PO DAILY 01/15/22 01/15/22 Complex with Vitamin C] oxyCODONE [Roxicodone] 5 mg ORAL Q6HR PRN 01/15/22 01/15/22 Morphine Ir [Ms Ir] 15 mg PO Q6H PRN #30 tablet 07/21/22 predniSONE [Deltasone] 20 mg PO [id number] #21 tab 07/21/22 - Allergies Allergies/Adverse Reactions: Allergies Allergy/AdvReac Type Severity Reaction Status Date / Time aspirin Allergy Nausea Verified 07/21/22 07:38 fentanyl Allergy Anaphylaxis Verified 07/21/22 07:38 Penicillins Allergy vomiting, Verified 07/21/22 07:38 visual changes - Social History Does the pt smoke?: No Smoking Status: Never smoker Does the pt drink ETOH?: No Does the pt have substance abuse?: No - Immunizations Immunizations are current?: Yes - POLST Patient has POLST: No PD ED PE NORMAL - Vitals Vital signs reviewed: Yes - General General: Alert and oriented X 3, No acute distress - Abdomen Abdomen: Normal bowel sounds, Soft, Non tender - Back Back: No spinal TTP - Extremities Extremities: Other (The patient has equal and normal Achilles and patellar reflexes bilaterally. Normal sensation in all areas of the legs. Patient denies saddle anesthesia. Normal strength in flexion-extension at the ankles, knees, and flexion of the hips.) - Neuro Neuro: Alert and oriented X 3, Normal speech Results - Vitals Vitals: Vital Signs - 24 hr 07/21/22 07/21/22 07/21/22 07:35 08:37 09:52 Temperature 36.3 C L Heart Rate 69 68 81 Respiratory 18 18 18 Rate Blood Pressure 118/89 H 149/93 H 140/74 H O2 Saturation 94 95 99 Oxygen O2 Source Room air - Rads (name of study) CT Lumbar spine Radiology: EMP read contemporaneously PD MEDICAL DECISION MAKING - ED course ED course: 72-year-old woman with a severe exacerbation of chronic back pain. CT of the lumbar spine done and showing worsening spinal stenosis at L3-L4 related to a disc herniation. That said she does not have any symptoms or signs concerning for recurrent cauda equina syndrome. Pain much better after 6 mg of morphine IM as well as Decadron IM. Departure - Departure Disposition: Home, Self Care Clinical Impression: Lumbar disc herniation with radiculopathy Back pain Qualifiers: Back pain location: low back pain Chronicity: acute Back pain laterality: midline Sciatica presence: with sciatica Sciatica laterality: sciatica of left side Qualified Code(s): M54.42 - Lumbago with sciatica, left side Spinal stenosis Qualifiers: Spinal region: lumbar Neurogenic claudication status: unspecified Qualified Code(s): M48.061 - Spinal stenosis, lumbar region without neurogenic claudication Condition: Good Instructions: ED Sciatica Prescriptions: predniSONE [Deltasone] 20 mg PO [id number] #21 tab Morphine Ir [Ms Ir] 15 mg PO Q6H PRN #30 tablet PRN Reason: Pain Comments: I sent your prescriptions electronically to [facility] in [place]. As discussed, on CT imaging today we identified that you do have a large L3-L4 central disc herniation causing spinal stenosis. Talk with your primary care physician tomorrow about referral to a spine surgeon for evaluation for intervention if they feel it is appropriate such as discectomy or laminectomy. I am prescribing a short course of narcotic pain medication for you. These are potentially dangerous and addictive medications that should be used carefully. These medications may constipate you. Take an [id number] stool softener (docusate) twice daily with plenty of water while taking these medications. If you go 24 hours without a bowel movement, take [id number] miralax, per package instructions. Do not drink or drive while taking these medications. If you received narcotic or sedating medications while in the emergency department, do not drive for 24 hours. Store this medication in a safe, secure place and out of reach of children. It is a violation of federal law to give or sell this medication to another person or to use in a manner other than prescribed. The ED will not refill narcotic prescriptions, including prescriptions lost or stolen. To dispose of unwanted medications: 1. [facility] at [address] in [place] has a medication drop box. They accept prescription medications (in pill form) Friday through Friday 9:00 a.m. to 5:00 p.m. 2. The [facility] [employer] [facility] accepts prescription medications (in pill form only) for disposal year round. Call for more information. 3. Contact the [facility] for the next [facility] sponsored prescription drug collection event. , [phone], or [phone]; Note that many narcotic pain relievers also contain Tylenol/acetaminophen. Please ensure that your total dose of acetaminophen from all sources does not exceed 3 g (3000 mg) per day. Discharge Date/Time: 07/21/22 09:52
--- NOTE | 2022-07-21 08:46 | CT Report ---
PROCEDURE: LUMBAR SPINE WO INDICATIONS: back pain TECHNIQUE: Noncontrast 3 mm thick sections acquired from the T12 level to the sacrum. Sagittal and coronal refo rmats were constructed. For radiation dose reduction, the following was used: automated exposure co ntrol, adjustment of mA and/or kV according to patient size. COMPARISON: 11/26/2020 FINDINGS: Image quality: Excellent. Bones: There is stable bony alignment. This includes loss of normal lumbar lordosis and stable moder ately severe disc height loss at L1-2. There is subtle leftward curvature of the upper lumbar spine w ith apex at L1-2 and right lateral reactive endplate osteophytes. No significant change compared to t he prior study. No acute vertebral body compression fractures. There is vacuum phenomenon in both sacroiliac joints. No suspicious lytic or blastic bony lesions. No pars defects. T12-L1: Normal in appearance. L1-L2: Mild diffuse circumferential disc osteophyte and mild central canal narrowing, stable. L2-L3: Moderate, chronic circumferential disc bulge and facet arthropathy. Moderate central canal narrowing. Stable. L3-L4: Moderate to large circumferential disc bulge. There is new broad-based posterior disc hernia tion and cranial extrusion of disc material about 1.4 cm above the disc line. Severe central canal st enosis at this level has progressed due to disc extrusion. Mild bilateral foraminal narrowing. L4-L5: Moderate broad-based circumferential disc bulge. Ligamentum flavum hypertrophy. Moderate janette ateral foraminal narrowing and moderately severe central canal narrowing. Mild progression. L5-S1: Minor broad-based disc bulge. No significant central canal or foraminal narrowing. Soft tissues: No retroperitoneal masses or hematomas. Visualized aorta is normal in caliber. Sever al nonobstructing bilateral intrarenal calculi, largest in the right upper pole measuring up to 1.0 c m. A coarse parenchymal calcification is partially imaged in the lateral lower pole of the left kidne y. No hydronephrosis. IMPRESSION: 1. Compared to 11/26/2020, there is been a new disc herniation and cranial extrusion at the L3-4 level accentuating already severe central canal stenosis. 2. Mild progression of foraminal narrowing and central canal stenosis at L4-5. 3. No vertebral body fractures or change in vertebral body alignment. Reviewed by: Elza Guzman MD on 07/21/2022 7:45 AM [facility] Approved by: Elza Guzman MD on 07/21/2022 7:45 AM [facility] Station ID: [id number]
[2022-07-21 09:54] VITALS: BP 140/74
== END 2022-07-21 09:52 | disposition home or self-care (01) ==
LOC: EDUNIT# → ED 07:25
DX: M51.16 Intervertebral disc disorders with radiculopathy, lumbar region (principal); M48.061 Spinal stenosis, lumbar region without neurogenic claudication
CPT/HCPCS: 96372; 99283; 99284

== ENCOUNTER 2022-08-02 15:13 | Outpatient (CLI) | payer MEDICARE, MEDICAID | END 2022-08-02 15:14 | disposition critical access hospital (66) | LOC: EMS 15:13 | DX: M54.50 Low back pain, unspecified (principal); W19.XXXA Unspecified fall, initial encounter | CPT/HCPCS: A0425; A0429 ==

== ENCOUNTER 2022-08-02 15:40 | Emergency (ER) | payer MEDICARE, MEDICAID ==
[2022-08-02] MEDS ORDERED: DEXAMETHASONE 10 MG/ML VIAL IM STA (16:14)
[2022-08-02] MEDS ORDERED: MORPHINE 10 MG/ML VIAL IM STA (16:14)
--- NOTE | 2022-08-02 16:20 | ED Physician Documentation ---
PD HPI BACK PAIN - Stated complaint Stated Complaint: GLF/BACK PX - Chief complaint Chief Complaint: Trauma Ch/Bk - History obtained from History obtained from: Patient, EMS - History of Present Illness Associated symptoms: No: Fever, Weakness, Numbness, Incontinent of urine, Unable to urinate, Hematuria, Incontinent of stool Improves with: Rest Worsened by: Movement Contributing factors: No: Anticoagulated, Cancer, IVDA - Additional information Additional information: Patient is a 72-year-old female with a longstanding history of chronic back pain. She states that she had an MRI last week and does not yet know the results. She states that it is set to be reviewed by orthopedics next week. She had this done at [facility]. She states that last night she tripped and fell. Did not have much pain after the event, but has had more pain today. She states that she also ran out of her morphine today and would like a refill of that. She has not talked to her doctor about her pain medication. The morphine was given by the last emergency department physician that she saw. No numbness or tingling. No loss of bowel or bladder control. Worse with movement, better with rest. She states that she feels that the steroids helped her as well. No fevers. No chills. No recent illnesses. Review of Systems Ten Systems: 10 systems reviewed and negative Constitutional: denies: Fever, Chills Respiratory: denies: Cough GI: denies: Nausea, Vomiting, Diarrhea Skin: denies: Rash Musculoskeletal: denies: Neck pain, Back pain Neurologic: denies: Headache PD PAST MEDICAL HISTORY - Past Medical History Past Medical History: Yes Cardiovascular: High cholesterol Respiratory: COPD Neuro: None Endocrine/Autoimmune: HyPOthyroidism GI: None LIQUID LOADER: None : Kidney stones HEENT: Other Psych: None Musculoskeletal: Osteoarthritis, Chronic back pain Derm: Eczema, Psoriasis - Past Surgical History Past Surgical History: Yes /LIQUID LOADER: Hysterectomy, Oophrectomy, Breast reduction Cardiovascular: Lobectomy, Other HEENT: Tonsil/Adenoidectomy - Present Medications Home Medications: Ambulatory Orders Medication Instructions Recorded Confirmed Primidone [Mysoline] 50 mg PO BID PRN 02/29/20 01/15/22 Tizanidine HCl 4 mg PO DAILY PRN 02/29/20 01/15/22 Loratadine [Claritin] 10 mg PO DAILY PRN #10 tablet 03/21/20 01/15/22 Meloxicam [Mobic] 7.5 mg PO BID PRN #20 tab 11/24/20 01/15/22 Oxycodone HCl/Acetaminophen 1 - 2 each PO Q6H PRN #14 tab 11/24/20 01/15/22 [Percocet 5-325 mg Tablet] Gabapentin [Neurontin] 300 mg PO TID #60 11/26/20 01/15/22 Acetaminophen [Pain Relief Extra 500 mg PO Q6HR PRN 01/15/22 01/15/22 Strength] Albuterol Sulfate [Proair Hfa 1 - 2 puffs INH Q4H PRN 01/15/22 01/15/22 Inhaler] Atorvastatin [Lipitor] 40 mg PO QPM 01/15/22 01/15/22 Azelastine HCl 1 drops OP BID PRN 01/15/22 01/15/22 Baclofen [Lioresal] 10 mg PO TID PRN 01/15/22 01/15/22 Cholecalciferol (Vitamin D3) 125 mcg PO DAILY 01/15/22 01/15/22 [Vitamin D3] Montelukast [Singulair] 10 mg PO QPM 01/15/22 01/15/22 Vitamin B Complex Vit C No.3 [B 1 each PO DAILY 01/15/22 01/15/22 Complex with Vitamin C] oxyCODONE [Roxicodone] 5 mg ORAL Q6HR PRN 01/15/22 01/15/22 predniSONE [Deltasone] 20 mg PO [id number] #21 tab 07/21/22 Morphine Ir [Ms Ir] 15 mg PO Q6H PRN #14 tablet 08/02/22 predniSONE [Deltasone] 10 mg PO [id number] #42 tab 08/02/22 - Allergies Allergies/Adverse Reactions: Allergies Allergy/AdvReac Type Severity Reaction Status Date / Time aspirin Allergy Nausea Verified 07/21/22 07:38 fentanyl Allergy Anaphylaxis Verified 07/21/22 07:38 Penicillins Allergy vomiting, Verified 07/21/22 07:38 visual changes - Social History Does the pt smoke?: No Smoking Status: Never smoker Does the pt drink ETOH?: No Does the pt have substance abuse?: No - Immunizations Immunizations are current?: Yes - POLST Patient has POLST: No PD ED PE NORMAL - Vitals Vital signs reviewed: Yes - General General: Alert and oriented X 3, No acute distress, Well developed/nourished - HEENT HEENT: PERRL, Moist mucous membranes - Neck Neck: Supple, no meningeal sign - Cardiac Cardiac: RRR, Strong equal pulses - Respiratory Respiratory: No respiratory distress, Clear bilaterally - Abdomen Abdomen: Soft, Non tender, Non distended - Back Back: No spinal TTP, Other (No midline tenderness to palpation or percussion. No step-off or deformity.) - Derm Derm: Warm and dry - Extremities Extremities: No edema, No calf tenderness / cord - Neuro Neuro: Alert and oriented X 3, No motor deficit, No sensory deficit, Other (Normal bilateral lower extremity patellar and ankle jerk reflexes. Normal great toe extension bilaterally. no saddle anesthesia) - Psych Psych: Normal mood, Normal affect Results - Vitals Vitals: Vital Signs - 24 hr 08/02/22 08/02/22 08/02/22 15:47 17:50 19:00 Temperature 36.6 C Heart Rate 64 69 64 Respiratory 18 18 18 Rate Blood Pressure 101/71 143/104 H 123/83 H O2 Saturation 97 95 96 Oxygen O2 Source Room air - Rads (name of study) Ct L spine Radiology: Final report received, EMP read contemporaneously, See rad report PD MEDICAL DECISION MAKING - ED course Complexity details: reviewed results, re-evaluated patient, considered differential (No cauda equina, no spinal epidural abscess, no fracture, no aortic dissection or evidence of aneursym rupture), d/w patient ED course: 72-year-old female with chronic findings on CT scan. No acute findings. Pain well controlled. Will prescribe a small amount of pain medication to get her through the weekend and then have her follow-up with her doctor for further care. No focal neurological deficits. Ambulating well in the emergency department. No evidence of cauda equina, epidural abscess. Patient counseled regarding signs and symptoms for which I believe and urgent re-evaluation would be necessary. Patient with good understanding of and agreement to plan and is comfortable going home at this time This document was made in part using voice recognition software. While efforts are made to proofread this document, sound alike and grammatical errors may occur. Departure - Departure Disposition: 01 Home, Self Care Clinical Impression: Lumbar disc herniation with radiculopathy Condition: Good Instructions: ED Neck Back Pain General, ED Sciatica Follow-Up: Roseline Rogers MD [Primary Care Provider] - Within 3 Days Prescriptions: predniSONE [Deltasone] 10 mg PO [id number] #42 tab Morphine Ir [Ms Ir] 15 mg PO Q6H PRN #14 tablet PRN Reason: Pain Comments: Your prescriptions were sent to [facility] in [place]. Please follow-up with your doctor for further care. All further pain medications will need to come from your doctor. Your CT scan does not show any acute abnormalities. We do not have access to the MRI that was performed at [facility] I am prescribing a short course of narcotic pain medication for you. These are potentially dangerous and addictive medications that should be used carefully. These medications may constipate you. Take an [id number]-[id number] stool softener (docusate) twice daily with plenty of water while taking these medications. If you go 24 hours without a bowel movement, take [id number] miralax, per package instructions. Do not drink or drive while taking these medications. If you received narcotic or sedating medications while in the emergency department, do not drive for 24 hours. Store this medication in a safe, secure place and out of reach of children. It is a violation of federal law to give or sell this medication to another person or to use in a manner other than prescribed. The ED will not refill narcotic prescriptions, including prescriptions lost or stolen. To dispose of unwanted medications: 1. [facility] at [address] [facility] in [place] has a medication drop box. They accept prescription medications (in pill form) Friday through Friday 9:00 a.m. to 5:00 p.m. 2. [facility] [employer] accepts prescription medications (in pill form only) for disposal year round. Call for more information. 3. Contact the [facility] for the next [facility] sponsored prescription drug collection event. , [phone], or [phone]; Discharge Date/Time: 08/02/22 20:01
--- OUTSIDE RECORDS SUMMARY | 2022-08-02 16:52 | EXTERNAL MEDICAL SUMMARY RPT | Continuity of Care Document ---
:1950 Author Organization [facility] Address [address] [place] [address] Phone Allergies No information. Encounters No information. Functional Status No information. Immunizations No information. Medications No information. Problems No information. Procedures No information. Results/Labs test date author facility value unit interpret ation Result panel 1 (unknown) (no (unknown) (unknown) (no value) (units (unk nown) date) unknown) (unknown) (no (unknown) (unknown) [id number] (units (unkno wn) date) unknown) (unknown) (no (unknown) (unknown) 07/21/2022. (units (un known) date) unknown) (unknown) (no (unknown) (unknown) 07/31/22 (units (unkno wn) date) unknown) (unknown) (no (unknown) (unknown) [address] [place] [address] (units (unknown) date) unknown) (unknown) (no (unknown) (unknown) 16:04. Outside (units (unknown) date) Film, CT, CT LUMBAR unknown) SPINE WITHOUT CONTRAST, 07/21/2022, 7:49. (unknown) (no (unknown) (unknown) 12/25/2021, (units (unk nown) date) unknown) (unknown) (no (unknown) (unknown) Accession Number: (units (unknown) date) [id number] unknown) (unknown) (no (unknown) (unknown) Age/Sex: 72 / F (units (unknown) date) Date of Service: unknown) (unknown) (no (unknown) (unknown) Alignment and (units ( unknown) date) Curvature: There is unknown) mild leftward curvature with apex at L1. (unknown) (no (unknown) (unknown) SATISH Gomez (units ( unknown) date) [id number] unknown) (unknown) (no (unknown) (unknown) Approved by: (units (u nknown) date) Dinora Cortes M.D. unknown) on 08/01/2022 at 10:18 (unknown) (no (unknown) (unknown) Bone Marrow: (units (u nknown) date) Marrow is of normal unknown) overall signal. Mild reactive endplate (unknown) (no (unknown) (unknown) COMPARISON: [facility] (units (unknown) date) [facility], unknown) MR, MR LUMBAR SPINE WITHOUT CONTRAST, (unknown) (no (unknown) (unknown) : 1950 (units (unknown) date) Acct:[id number] unknown) (unknown) (no (unknown) (unknown) Dictated by: (units (u nknown) date) Dinora Cortes M.D. unknown) on 08/01/2022 at 9:43 (unknown) (no (unknown) (unknown) Disc bulge with (units (unknown) date) cranial extrusion unknown) migration is again noted L3-4 causing severe (unknown) (no (unknown) (unknown) Discs: Multilevel (units (unknown) date) overall moderate to unknown) severe disc desiccation is present most (unknown) (no (unknown) (unknown) Epidural (units (unkno wn) date) unknown) (unknown) (no (unknown) (unknown) FINDINGS: (units (unkn own) date) unknown) (unknown) (no (unknown) (unknown) IMPRESSION: (units (un known) date) unknown) (unknown) (no (unknown) (unknown) INDICATIONS: (units (u nknown) date) Radiculopathy, unknown) lumbar region (unknown) (no (unknown) (unknown) Image quality: (units (unknown) date) Excellent. unknown) (unknown) (no (unknown) (unknown) [facility] (units (unknown) date) unknown) (unknown) (no (unknown) (unknown) L1-2, L3-4. (units (un known) date) unknown) (unknown) (no (unknown) (unknown) L1-L2: Mild disc (units (unknown) date) bulge with slightly unknown) less prominent appearance of posterior (unknown) (no (unknown) (unknown) L2-L3: Mild disc (units (unknown) date) bulge with moderate unknown) spinal stenosis. Slight posterior (unknown) (no (unknown) (unknown) L3-L4: Disc bulge (units (unknown) date) with superimposed unknown) posterior central extrusion with 1.7 cm (unknown) (no (unknown) (unknown) L4-L5: Mild disc (units (unknown) date) bulge with moderate unknown) to severe spinal stenosis. Small (unknown) (no (unknown) (unknown) L5-S1: Mild disc (units (unknown) date) bulge with small unknown) posterior central protrusion. Minimal canal (unknown) (no (unknown) (unknown) Loc: MRI (units (unkno wn) date) unknown) (unknown) (no (unknown) (unknown) Magnetic Resonance (units (unknown) date) Report unknown) (unknown) (no (unknown) (unknown) Mild spinal (units (un known) date) stenosis. Minimal unknown) right and moderate left foraminal narrowing with (unknown) (no (unknown) (unknown) Noncontrast (units (un known) date) sagittal T1 spin unknown) echo and T2 fast echo, sagittal STIR, and T2 fast (unknown) (no (unknown) (unknown) Ordering Provider: (units (unknown) date) Angela Obrien unknown) P.A-C (unknown) (no (unknown) (unknown) PROCEDURE: MR (units ( unknown) date) LUMBAR SPINE WO CON unknown) (unknown) (no (unknown) (unknown) Paraspinous Soft (units (unknown) date) Tissues: No unknown) paravertebral masses. Increased T2 (unknown) (no (unknown) (unknown) Patient: (units (unkno wn) date) Nohemy Sousa A unknown) MR#: [id number] (unknown) (no (unknown) (unknown) Procedure: MR (units ( unknown) date) lumbar spine wo con unknown) (unknown) (no (unknown) (unknown) Signed (units (unkno wn) date) unknown) (unknown) (no (unknown) (unknown) Spinal Cord: Conus (units (unknown) date) medullaris unknown) terminates at the T12-L1 level. Visualized cord (unknown) (no (unknown) (unknown) Stable interval (units (unknown) date) exam compared to unknown) 07/21/2022. (unknown) (no (unknown) (unknown) T12-L1: No disc (units (unknown) date) bulge, spinal unknown) stenosis or foraminal narrowing. (unknown) (no (unknown) (unknown) TECHNIQUE: (units (unk nown) date) unknown) (unknown) (no (unknown) (unknown) appreciable (units (un known) date) unknown) (unknown) (no (unknown) (unknown) are present. (units (u nknown) date) unknown) (unknown) (no (unknown) (unknown) canal (units (unkno wn) date) unknown) (unknown) (no (unknown) (unknown) central (units (unkno wn) date) unknown) (unknown) (no (unknown) (unknown) changes are (units (un known) date) unknown) (unknown) (no (unknown) (unknown) compression. (units (u nknown) date) Epidural unknown) lipomatosis is present. Moderate bilateral left greater (unknown) (no (unknown) (unknown) cranial (units (unkno wn) date) unknown) (unknown) (no (unknown) (unknown) cysts. (units (unkno wn) date) unknown) (unknown) (no (unknown) (unknown) demonstrates (units (u nknown) date) normal signal and unknown) size. (unknown) (no (unknown) (unknown) facet and (units (unkn own) date) unknown) (unknown) (no (unknown) (unknown) hyperintensities (units (unknown) date) are unknown) (unknown) (no (unknown) (unknown) interval change. (units (unknown) date) unknown) (unknown) (no (unknown) (unknown) ligamentum flavum (units (unknown) date) hypertrophy. Mild unknown) epidural lipomatosis. No interval change. (unknown) (no (unknown) (unknown) ligamentum flavum (units (unknown) date) hypertrophy. unknown) Minimal epidural lipomatosis. (unknown) (no (unknown) (unknown) lipomatosis. (units (u nknown) date) Overall appearance unknown) is stable compared to prior exam on (unknown) (no (unknown) (unknown) may be performed. (units (unknown) date) unknown) (unknown) (no (unknown) (unknown) migration (units (unkn own) date) measuring 1.6 x 1.0 unknown) x 1.7 cm. There is severe spinal stenosis with (unknown) (no (unknown) (unknown) narrowing (units (unkn own) date) unknown) (unknown) (no (unknown) (unknown) narrowing. No (units ( unknown) date) foraminal unknown) narrowing. Facet and ligamentum flavum hypertrophy (unknown) (no (unknown) (unknown) notable at (units (unk nown) date) unknown) (unknown) (no (unknown) (unknown) posterior central (units (unknown) date) unknown) (unknown) (no (unknown) (unknown) present at L3-4, (units (unknown) date) L4-5. No acute unknown) vertebral body compression fractures. (unknown) (no (unknown) (unknown) present within the (units (unknown) date) kidneys bilaterally unknown) with the larger foci most suggestive of (unknown) (no (unknown) (unknown) protrusion is (units ( unknown) date) again noted. There unknown) is mild right and moderate left foraminal (unknown) (no (unknown) (unknown) protrusion is (units ( unknown) date) unchanged. Moderate unknown) bilateral foraminal narrowing with facet and (unknown) (no (unknown) (unknown) protrusion. (units (un known) date) unknown) (unknown) (no (unknown) (unknown) right foraminal (units (unknown) date) narrowing with unknown) facet and ligamentum flavum hypertrophy. (unknown) (no (unknown) (unknown) simple (units (unkno wn) date) unknown) (unknown) (no (unknown) (unknown) spin echo (units (unkn own) date) unknown) (unknown) (no (unknown) (unknown) spinal (units (unkno wn) date) unknown) (unknown) (no (unknown) (unknown) stenosis with (units ( unknown) date) canal compression, unknown) overall stable. (unknown) (no (unknown) (unknown) than (units (unkno wn) date) unknown) (unknown) (no (unknown) (unknown) through the lumbar (units (unknown) date) spine. In cases unknown) with scoliosis, additional coronal T2 fast (unknown) (no (unknown) (unknown) with facet and (units (unknown) date) ligamentum flavum unknown) hypertrophy. Epidural lipomatosis. No Social History No information. Vital Signs No information.
--- NOTE | 2022-08-02 18:36 | CT Report ---
PROCEDURE: LUMBAR SPINE WO INDICATIONS: fall, acute on chronic back pain TECHNIQUE: Noncontrast 3 mm thick sections acquired from the T12 level to the sacrum. Sagittal and coronal refo rmats were constructed. For radiation dose reduction, the following was used: automated exposure co ntrol, adjustment of mA and/or kV according to patient size. COMPARISON: 07/21/2022, 11/26/2020 FINDINGS: Image quality: Excellent. Bones: No acute vertebral body compression fractures. No suspicious lytic or blastic bony lesions. Central spinal caliber is of normal overall caliber. No pars defects. Mild levoconvex scoliotic curvature is seen. No significant AP alignment abnormality can be seen. Multiple levels of lumbar spine degenerative change are seen. There is moderate to severe disc space narrowing at L1-L2. At L3-L4, there is again seen a disc extrusion, with superior migration of the di sc material, as demonstrated on series 3 image 52 and on series 9 image 55. This disc extrusion appea rs similar to the prior. Soft tissues: No retroperitoneal masses or hematomas. Visualized aorta is normal in caliber. Ather osclerotic calcification is seen. Bilateral nonobstructing kidney stones are seen, with the largest o n the left measuring 12 mm and 720 counseling units. The largest solitary stone on the right measures 6 mm and 620 Hounsfield units. No hydronephrosis is seen on either side. IMPRESSION: Negative for acute fracture. Stable L3-L4 disc extrusion. Moderate to severe disc space narrowing seen at L1-L2. Levoconvex lumbar scoliosis noted. If it would be helpful for clinical management decision making, please consider a dedicated, schedule d lumbar MRI for further evaluation (assuming that there is no contraindication). Incidental note is made of: Bilateral nonobstructing kidney stones Reviewed by: Tc Hammond MD on 08/02/2022 5:34 PM [facility] Approved by: Tc Hammond MD on 08/02/2022 5:34 PM [facility] Station ID: [id number]
[2022-08-02 19:38] VITALS: BP 123/83
== END 2022-08-02 20:01 | disposition home or self-care (01) ==
LOC: EDUNIT# → ED 15:40
DX: M51.16 Intervertebral disc disorders with radiculopathy, lumbar region (principal)
CPT/HCPCS: 96372; 99283; 99284

== ENCOUNTER 2022-10-04 21:41 | Outpatient (CLI) | payer MEDICARE, MEDICAID | END 2022-10-04 21:42 | disposition critical access hospital (66) | LOC: EMS 21:41 | DX: M54.50 Low back pain, unspecified (principal) | CPT/HCPCS: A0425; A0429 ==

== ENCOUNTER 2022-10-04 21:56 | Emergency (ER) | payer MEDICARE, MEDICAID ==
[2022-10-04] MEDS ORDERED: DEXAMETHASONE 10 MG/ML VIAL IM STA (22:23)
[2022-10-04] MEDS ORDERED: MORPHINE 10 MG/ML VIAL IM STA (22:25)
--- NOTE | 2022-10-04 22:58 | ED Physician Documentation ---
PD HPI BACK PAIN - Stated complaint Stated Complaint: BACK PAIN - Chief complaint Chief Complaint: Back Pain - History obtained from History obtained from: Patient - Additional information Additional information: Patient is a 72-year-old female with a history of chronic back pain presenting for evaluation of worsening pain for at least the past week. Patient had spinal surgery in mid August at [facility]. She has continued to have significant pain since her surgery. She saw her spine surgeon last FridayWho evaluated her incision and felt that things were looking good. She did reach out to her PCP this week for increased amounts of Percocet. She has continued to have pain and also sent her orthopedic surgeon a message through [employer] today and the plan was for a course of steroids as she was told that there is still a lot of inflammation that needs to settle.However when she went to the pharmacy, they did not have the prescription for the steroids. Patient denies any new injuries or trauma that could have exacerbated her pain. The pain is in the low back and radiates to the right hip and into the right leg. She does have a history of sciatica and this feels similar to prior episodes. She denies bowel or bladder incontinence, saddle anesthesia, fevers.She does not take a blood thinner. She denies chest pain or difficulty breathing.She denies abdominal pain. Review of Systems Constitutional: denies: Fever Nose: denies: Congestion Cardiac: denies: Chest pain / pressure Respiratory: denies: Dyspnea GI: denies: Abdominal Pain : denies: Incontinent Musculoskeletal: reports: Back pain Neurologic: denies: Headache PD PAST MEDICAL HISTORY - Past Medical History Cardiovascular: High cholesterol Respiratory: COPD Neuro: None Endocrine/Autoimmune: HyPOthyroidism GI: None PEDIATRIC AUDIOLOGIST: None : Kidney stones HEENT: Other Psych: None Musculoskeletal: Osteoarthritis, Chronic back pain Derm: Eczema, Psoriasis - Past Surgical History Past Surgical History: Yes /PEDIATRIC AUDIOLOGIST: Hysterectomy, Oophrectomy, Breast reduction Cardiovascular: Lobectomy, Other HEENT: Tonsil/Adenoidectomy - Present Medications Home Medications: Ambulatory Orders Medication Instructions Recorded Confirmed Primidone [Mysoline] 50 mg PO BID PRN 02/29/20 01/15/22 Tizanidine HCl 4 mg PO DAILY PRN 02/29/20 01/15/22 Loratadine [Claritin] 10 mg PO DAILY PRN #10 tablet 03/21/20 01/15/22 Meloxicam [Mobic] 7.5 mg PO BID PRN #20 tab 11/24/20 01/15/22 Oxycodone HCl/Acetaminophen 1 - 2 each PO Q6H PRN #14 tab 11/24/20 01/15/22 [Percocet 5-325 mg Tablet] Gabapentin [Neurontin] 300 mg PO TID #60 11/26/20 01/15/22 Acetaminophen [Pain Relief Extra 500 mg PO Q6HR PRN 01/15/22 01/15/22 Strength] Albuterol Sulfate [Proair Hfa 1 - 2 puffs INH Q4H PRN 01/15/22 01/15/22 Inhaler] Atorvastatin [Lipitor] 40 mg PO QPM 01/15/22 01/15/22 Azelastine HCl 1 drops OP BID PRN 01/15/22 01/15/22 Baclofen [Lioresal] 10 mg PO TID PRN 01/15/22 01/15/22 Cholecalciferol (Vitamin D3) 125 mcg PO DAILY 01/15/22 01/15/22 [Vitamin D3] Montelukast [Singulair] 10 mg PO QPM 01/15/22 01/15/22 Vitamin B Complex Vit C No.3 [B 1 each PO DAILY 01/15/22 01/15/22 Complex with Vitamin C] oxyCODONE [Roxicodone] 5 mg ORAL Q6HR PRN 01/15/22 01/15/22 predniSONE [Deltasone] 20 mg PO [id number] #21 tab 07/21/22 Morphine Ir [Ms Ir] 15 mg PO Q6H PRN #14 tablet 08/02/22 predniSONE [Deltasone] 10 mg PO [id number] #42 tab 08/02/22 - Allergies Allergies/Adverse Reactions: Allergies Allergy/AdvReac Type Severity Reaction Status Date / Time aspirin Allergy Nausea Verified 10/04/22 22:05 fentanyl Allergy Anaphylaxis Verified 10/04/22 22:05 Penicillins Allergy vomiting, Verified 10/04/22 22:05 visual changes - Social History Does the pt smoke?: No Smoking Status: Never smoker Does the pt drink ETOH?: No Does the pt have substance abuse?: No - Immunizations Immunizations are current?: Yes - POLST Patient has POLST: No PD ED PE NORMAL - General General: Alert and oriented X 3, No acute distress, Well developed/nourished - HEENT HEENT: Atraumatic - Neck Neck: Supple, no meningeal sign - Cardiac Cardiac: RRR, Strong equal pulses - Respiratory Respiratory: No respiratory distress, Clear bilaterally - Abdomen Abdomen: Soft, Non tender, Non distended - Back Back: No spinal TTP, Other (Well-healing midline lumbar incision, no erythema, no abnormal drainage, no swelling) - Derm Derm: Warm and dry - Extremities Extremities: No calf tenderness / cord - Neuro Neuro: Alert and oriented X 3, No motor deficit, No sensory deficit, Normal speech, Other (Normal bilateral patellar and ankle jerk reflexes, normal great toe extension bilaterally) Results - Vitals Vitals: Vital Signs - 24 hr 10/04/22 10/05/22 10/05/22 22:03 03:48 04:46 Temperature 36.9 C Heart Rate 79 75 83 Respiratory 20 17 18 Rate Blood Pressure 120/72 111/51 L 116/76 O2 Saturation 98 98 97 Oxygen O2 Source Room air - Labs Labs: Laboratory Tests 10/05/22 10/05/22 10/05/22 00:56 00:56 00:56 WBC 9.4 RBC 3.86 L Hgb 12.0 Hct 36.1 L MCV 93.5 MCH 31.1 H MCHC 33.2 RDW 12.0 Plt Count 306 MPV 9.7 Neut # (Auto) 8.2 H Lymph # (Auto) 0.8 L [place] # (Auto) 0.3 Eos # (Auto) 0.2 Baso # (Auto) 0.0 Absolute Nucleated RBC 0.00 Nucleated RBC % 0.0 ESR 84 H Sodium 136 Potassium 4.6 Chloride 99 L Carbon Dioxide 25 Anion Gap 12.0 BUN 23 H Creatinine 0.7 Estimated GFR (MDRD) 82 L Glucose 130 H Calcium 9.6 Total Bilirubin 0.4 AST 17 ALT 16 Alkaline Phosphatase 88 C-Reactive Protein 5.8 H Total Protein 7.9 Albumin 3.6 Globulin 4.3 H Albumin/Globulin Ratio 0.8 L PD Medical Decision Making - ED course Complexity details: reviewed results, re-evaluated patient, d/w patient ED course: Patient presenting for evaluation of worsening back pain for the past 1 week. Patient does have a history of chronic back pain with recent surgery in August.She has no deficits noted on her neuro exam and is ambulating. She is afebrile. Her incision site looks well. Initially IM Decadron and morphine were ordered for symptom control. Due to persistent symptoms of pain and given recent surgery, noncontrast CT of the L-spine was obtained To evaluate hardware as it was unclear what kind of surgery she had had.CT scan with irregularities concerning for possible discitis osteomyelitis, epidural fluid collection. Labs were obtained which demonstrate an elevated CRP and sed rate. Images were pushed to [facility] and [facility]. I did speak with the patient's surgeon, Dr. Orozco who agrees with plan for MRI. [facility] does not have MRI capabilities this weekend. [facility] does have guitar repair technician on Saturdays so an MRI order was placed. For the time being we are going to hold on antibiotics as patient does not appear septic Or have deficits. Pt signed out at shift change. 0206 - D/W Dr. Orozco. Agrees with plan for MRI. [facility] does not have guitar repair technician over the weekends or after hours and so Transfer there would not get an MRI done quicker than if the patient stayed here at [facility]. He recommends holding off on antibiotics at this time Unless she becomes septic.He is on-call over the weekend and would appreciate follow-up phone call once we are able to get an MRI. 0210 - Discussed with [facility] transfer center.They will also reach out to their spine doctor to evaluate our images to offer any further guidance. 0250 - Patient ambulating in the hallway with her walker. Assisted back to her bed and reviewed the plan for MRI in the morning. Departure - Departure Clinical Impression: Postoperative back pain
[2022-10-04] MEDS: oxyCODONE 5 MG TABLET PO STA ×2 (23:36→23:37)
[2022-10-04] MEDS ORDERED: tiZANidine 4 MG TABLET PO SCH (23:45)
[2022-10-04] MEDS ORDERED: oxyCODONE 5 MG TABLET PO STA (23:59)
[2022-10-05] MEDS ORDERED: GABAPENTIN 100 MG CAPSULE PO STA ×3 (00:08→14:40)
[2022-10-05 01:07] LABS: BASOPHILS % (AUTO) 0.2 %; EOSINOPHILS # (AUTO) 0.2 10^3/uL (0.0-0.7); EOSINOPHILS % (AUTO) 1.7 %; HCT - HEMATOCRIT 36.1 % (37.0-47.0); LYMPHOCYTES # (AUTO) 0.8 10^3/uL (1.5-3.5); LYMPHOCYTES % (AUTO) 8.1 %; MEAN CORPUSCULAR HEMOGLOBIN 31.1 pg (27.0-31.0); MEAN CORPUSCULAR HGB CONC 33.2 g/dL (32.0-36.0); MEAN CORPUSCULAR VOLUME 93.5 fL (81.0-99.0); MEAN PLATELET VOLUME 9.7 fL (7.9-10.8); MONOCYTES # (AUTO) 0.3 10^3/uL (0.0-1.0); MONOCYTES % (AUTO) 3.2 %; NEUTROPHILS # (AUTO) 8.2 10^3/uL (1.5-6.6); NEUTROPHILS % (AUTO) 86.6 %; PLT - PLATELET COUNT 306 10^3/uL (130-450); RED BLOOD COUNT 3.86 10^6/uL (4.20-5.40); WHITE BLOOD COUNT 9.4 x10^3/uL (4.8-10.8)
--- NOTE | 2022-10-05 01:08 | CT Report ---
PROCEDURE: LUMBAR SPINE WO INDICATIONS: recent surgery/increased pain TECHNIQUE: Noncontrast 3 mm thick sections acquired from the T12 level to the sacrum. Sagittal and coronal refo rmats were constructed. For radiation dose reduction, the following was used: automated exposure co ntrol, adjustment of mA and/or kV according to patient size. COMPARISON: CT lumbar spine 08/02/2022, 11/18/2020 FINDINGS: Image quality: Excellent. Bones: There is overall unchanged bony alignment. Interval left hemilaminectomy demonstrated at L3-L4 . There is interval loss of height of the L3-L4 disc with new associated endplate sclerosis. In addit ion, there are are also erosive changes along the endplates at L3-L4 with erosive changes involving a pproximately 50% of the L4 vertebral body height. There is slight posterior displacement of the super ior endplate of the L4 vertebral body with associated moderate severe spinal canal narrowing. There i s an associated epidural collection or extruded disc fragment posterior to the L3 vertebral body with associated moderate to severe spinal canal narrowing. There is moderate to severe right and moderate left neuroforaminal narrowing at L3-L4. Elsewhere, there is moderate loss of disc height at L1-L2, L2-L3, and L4-5 with small broad-based dis c bulges contributing to mild spinal canal narrowing at these levels. There is a minimal disc bulge w ith minimal spinal canal narrowing also demonstrated at L5-S1. Moderate bilateral neuroforaminal narr owing inserted at L4-L5. No acute vertebral body compression fractures. Central spinal caliber is of normal overall caliber. No pars defects. Soft tissues: There are postsurgical changes within the posterior paraspinous soft tissues at L3-L4. No retroperitoneal masses or hematomas. Visualized aorta is normal in caliber. There are bilateral nonobstructing renal stones within the partially visualized kidneys. Focal cortical calcification wi thin the left kidney is also noted and suggestive of dystrophic calcifications. IMPRESSION: 1. Interval postsurgical changes status post left hemilaminectomy and discectomy at L3-L4. There are new erosive bony changes along the endplates at L3-L4 with loss of height suspicious for discitis ost eomyelitis. Recommend further evaluation with a contrast-enhanced MRI when clinically feasible. 2. Posterior epidural collection or extruded disc fragment demonstrated posterior to the L3 vertebral body. Further evaluation may obtained with MRI. 3. Associated moderate to severe spinal canal narrowing at L3-L4 and posterior to the L3 vertebral bruno dy. Moderate to severe right neuroforaminal narrowing also present. 4. Multilevel degenerative changes redemonstrated elsewhere within the lumbar spine. Findings discussed with Dr. Pace on 10/05/2022 at 12:41 AM. Reviewed by: Tr Barron MD on 10/05/2022 1:17 AM PST Approved by: Tr Barron MD on 10/05/2022 1:17 AM PST Station ID: [id number]
[2022-10-05 01:24] LABS: ALBUMIN 3.6 g/dL (3.2-5.5); ALBUMIN/GLOBULIN RATIO 0.8 (1.0-2.2); BILIRUBIN,TOTAL 0.4 mg/dL (0.2-1.0); CALCIUM 9.6 mg/dL (8.5-10.3); CREATININE 0.7 mg/dL (0.4-1.0); CRP - C-REACTIVE PROTEIN 5.8 mg/dL (0-1.0); POTASSIUM 4.6 mmol/L (3.5-5.0); TOTAL PROTEIN 7.9 g/dL (6.7-8.2)
[2022-10-05] MEDS ORDERED: MORPHINE 2 MG/ML CARPUJECT IVP STA (04:33)
[2022-10-05] MEDS ORDERED: ACETAMINOPHEN 500 MG TABLET PO STA (06:32)
[2022-10-05] MEDS ORDERED: HYDROmorphone 1 MG/ML CARPUJECT IVP STA (11:10)
[2022-10-05] MEDS ORDERED: diazePAM INJ 5 MG/ML SYRINGE IVP STA (11:10)
[2022-10-05] MEDS ORDERED: KETOROLAC 15 MG/ML VIAL IVP STA (11:10)
[2022-10-05] MEDS ORDERED: GADOBUTROL 10 MMOL/10 ML VIAL ONE (11:25)
[2022-10-05] MEDS ORDERED: GADOBUTROL 10 MMOL/10 ML VIAL IVP ONE (12:16)
[2022-10-05] MEDS ORDERED: MORPHINE 10 MG/ML VIAL IVP STA ×2 (12:53→15:37)
--- NOTE | 2022-10-05 12:53 | MRI Report ---
PROCEDURE: MRI lumbar spine with and without contrast INDICATIONS: 72-year-old female with recent surgery and increasing pain CONTRAST: GADAVIST 8.9 TECHNIQUE: Noncontrast sagittal T1 spin echo and T2 fast spin echo, sagittal STIR, axial T1 and T2 fast spin ech o through the lumbar spine. In cases with scoliosis, additional coronal T2 fast spin echo may be per formed. After the administration of contrast, sagittal and axial T1 spin echo with fat saturation th rough the lumbar spine. COMPARISON: None. FINDINGS: At L3-4, there is fluid replacement of the disc with multiple erosions of the endplates, particularl y involving the superior endplate of L4. Vigorous L3 and L4 marrow edema with enhancement present. En capsulated epidural fluid extending from the posterior disc space tracks superiorly behind the L3 raymond tebral body, consistent with epidural abscess measuring 6 mm in thickness resulting in moderate centr al stenosis. There has been a left L3 laminotomy. Enhancing granulation tissue noted along the posterior soft tiss ue surgical track. Additionally, there is an encapsulated fluid collection in the subcutaneous tissue s measuring 4 cm superior-inferior and 1.5 cm in thickness, consistent with soft tissue abscess IMPRESSION: 1. 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 2. Prior left L3 laminotomy. Associated subcutaneous abscess measures 4 x 1.5 cm. Reviewed by: Bradley Dent MD on 10/05/2022 11:52 AM [facility] Approved by: Bradley Dent MD on 10/05/2022 11:52 AM [facility] Station ID: [id number]
[2022-10-05 13:11] VITALS: BP 155/70
--- NOTE | 2022-10-05 13:18 | ED Physician Documentation ---
ED Addendum - Addendum Addendum: 10/05/22 13:14 The patient has continued with significant back pain through the morning and has gotten repeated doses of IV morphine or hydromorphone. A dose of Toradol was also given. She is in a sitting position bedside with legs hanging over. She denies any weakness or numbness of the legs. Exam of the back skin does not show any redness or swelling. She has movement and sensation in both lower extremities. The patient had her MRI at their soonest available which was 11 AM. The reading has just resulted. The radiology reading is a fluid replacement of the disc at the L3-4 level with multiple erosions of the endplates particularly involving the superior endplate of L4. Vigorous L3 and L4 marrow edema with enhancement present. Encapsulated epidural fluid extending from the posterior disc tract superiorly behind the L3 vertebral body. This is most likely consistent with epidural abscess. They can see the L3 laminotomy changes with some enhancing granulation tissue along the posterior soft tissue surgical tract. There is also a fluid collection in that area most likely consistent with a soft tissue abscess. The impression is of a discitis and osteomyelitis with epidural abscess. I contacted Dr. Gallardo directly on his cell phone and reviewed the findings. He asked that the images be pushed over. He will contact their nursing ovens supervisor to arrange a transfer to their facility. I would believe the urgency of the findings would hopefully necessitate a high- priority transfer and perhaps even ER to ER given that is her back surgeon and not developing infection. Dr. Gallardo said to hold off on antibiotics at this point as he would like to get a fluid aspirate and culture from the OR and have it obtained prior to antibiotics. Disposition: The patient will hopefully be transferred to acute care facility. Diagnoses: Postoperative lumbar back surgery. 2. Increasing back pain 3. Postoperative discitis and abscess in the lumbar region
[2022-10-05] MEDS ORDERED: tiZANidine 4 MG TABLET PO STA (14:40)
== END 2022-10-05 16:07 | disposition short-term general hospital (02) ==
LOC: EDUNIT# → EDBD → ED 21:56
DX: T81.49XA Infection following a procedure, other surgical site, initial encounter (principal); L02.212 Cutaneous abscess of back [any part, except buttock and flank]; Y83.8 Other surgical procedures as the cause of abnormal reaction of the patient, or of later complication, without mention of misadventure at the time of the procedure; Y79.8 Miscellaneous orthopedic devices associated with adverse incidents, not elsewhere classified; G89.28 Other chronic postprocedural pain; M54.9 Dorsalgia, unspecified; Z20.822 Contact with and (suspected) exposure to COVID-19
CPT/HCPCS: 36415; 72131; 72158; 80053; 85025; 85651; 86140; 87040; 87635; 96372; 96374; 96375; 96376; 99284; 99285; A9270; A9585

== ENCOUNTER 2022-10-05 15:48 | Outpatient (CLI) | payer MEDICARE, MEDICAID | END 2022-10-05 15:49 | disposition short-term general hospital (02) | LOC: EMS 15:48 | PROVIDERS: ATTEND Emergency Medicine | DX: T81.49XA Infection following a procedure, other surgical site, initial encounter (principal); M54.50 Low back pain, unspecified | CPT/HCPCS: A0425; A0429 ==

== ENCOUNTER 2022-12-03 15:49 | Outpatient (CLI) | payer MEDICARE, MEDICAID ==
[2022-12-03 18:54] LABS: BASOPHILS % (AUTO) 0.4 %; EOSINOPHILS # (AUTO) 0.2 10^3/uL (0.0-0.7); EOSINOPHILS % (AUTO) 3.5 %; HCT - HEMATOCRIT 40.4 % (37.0-47.0); HGB - HEMOGLOBIN 12.3 g/dL (12.0-16.0); LYMPHOCYTES # (AUTO) 1.2 10^3/uL (1.5-3.5); LYMPHOCYTES % (AUTO) 25.8 %; MEAN CORPUSCULAR HEMOGLOBIN 29.4 pg (27.0-31.0); MEAN CORPUSCULAR HGB CONC 30.4 g/dL (32.0-36.0); MEAN CORPUSCULAR VOLUME 96.7 fL (81.0-99.0); MEAN PLATELET VOLUME 11.5 fL (7.9-10.8); MONOCYTES # (AUTO) 0.7 10^3/uL (0.0-1.0); MONOCYTES % (AUTO) 13.7 %; NEUTROPHILS # (AUTO) 2.7 10^3/uL (1.5-6.6); NEUTROPHILS % (AUTO) 56.4 %; PLT - PLATELET COUNT 237 10^3/uL (130-450); RED BLOOD COUNT 4.18 10^6/uL (4.20-5.40); RED CELL DISTRIBUTION WIDTH 14.4 % (12.0-15.0); WHITE BLOOD COUNT 4.8 x10^3/uL (4.8-10.8)
[2022-12-03 19:05] LABS: ALBUMIN 3.8 g/dL (3.2-5.5); ALKALINE PHOSPHATASE 65 IU/L (42-121); ALT ALANINE AMINOTRANSFERASE 16 IU/L (10-60); AST ASPARTATE AMINOTRANSFERASE 15 IU/L (10-42); BILIRUBIN,TOTAL 0.3 mg/dL (0.2-1.0); BUN - BLOOD UREA NITROGEN 16 mg/dL (6-20); CREATININE 0.6 mg/dL (0.4-1.0); GFR - MDRD 98 (>89); TOTAL PROTEIN 7.5 g/dL (6.7-8.2)
[2022-12-03 19:14] LABS: BILIRUBIN,DIRECT < 0.1 mg/dL (0.1-0.5); CRP - C-REACTIVE PROTEIN < 1.0 mg/dL (0-1.0)
== END 2022-12-03 15:50 | disposition home or self-care (01) ==
LOC: LAB.N 15:49
PROVIDERS: ATTEND Internal Medicine Infectious Disease
DX: M46.46 Discitis, unspecified, lumbar region (principal)
CPT/HCPCS: 36415; 80076; 82565; 84520; 85025; 85651; 86140

== ENCOUNTER 2022-12-17 11:43 | Outpatient (CLI) | payer MEDICARE, MEDICAID ==
[2022-12-17 17:44] LABS: BASOPHILS % (AUTO) 0.5 %; EOSINOPHILS # (AUTO) 0.2 10^3/uL (0.0-0.7); HCT - HEMATOCRIT 42.8 % (37.0-47.0); HGB - HEMOGLOBIN 12.8 g/dL (12.0-16.0); LYMPHOCYTES # (AUTO) 1.5 10^3/uL (1.5-3.5); LYMPHOCYTES % (AUTO) 35.7 %; MEAN CORPUSCULAR HEMOGLOBIN 29.2 pg (27.0-31.0); MEAN CORPUSCULAR HGB CONC 29.9 g/dL (32.0-36.0); MEAN CORPUSCULAR VOLUME 97.7 fL (81.0-99.0); MEAN PLATELET VOLUME 12.3 fL (7.9-10.8); MONOCYTES # (AUTO) 0.5 10^3/uL (0.0-1.0); MONOCYTES % (AUTO) 12.4 %; NEUTROPHILS % (AUTO) 47.2 %; PLT - PLATELET COUNT 227 10^3/uL (130-450); RED BLOOD COUNT 4.38 10^6/uL (4.20-5.40); RED CELL DISTRIBUTION WIDTH 14.2 % (12.0-15.0); WHITE BLOOD COUNT 4.3 x10^3/uL (4.8-10.8)
[2022-12-17 17:58] LABS: ALBUMIN 3.7 g/dL (3.2-5.5); ALKALINE PHOSPHATASE 59 IU/L (42-121); ALT ALANINE AMINOTRANSFERASE 17 IU/L (10-60); AST ASPARTATE AMINOTRANSFERASE 22 IU/L (10-42); BILIRUBIN,DIRECT 0.1 mg/dL (0.1-0.5); BILIRUBIN,TOTAL 0.4 mg/dL (0.2-1.0); BUN - BLOOD UREA NITROGEN 10 mg/dL (6-20); TOTAL PROTEIN 7.1 g/dL (6.7-8.2)
[2022-12-17 18:30] LABS: CRP - C-REACTIVE PROTEIN < 1.0 mg/dL (0-1.0)
== END 2022-12-17 11:44 | disposition home or self-care (01) ==
LOC: LAB.N 11:43
PROVIDERS: ATTEND Internal Medicine Infectious Disease
DX: M46.46 Discitis, unspecified, lumbar region (principal)
CPT/HCPCS: 36415; 80076; 84520; 85025; 85651; 86140

== ENCOUNTER 2023-07-15 21:21 | Outpatient (CLI) | payer MEDICARE, MEDICAID | END 2023-07-15 21:22 | disposition critical access hospital (66) | LOC: EMS 21:21 | DX: R19.7 Diarrhea, unspecified (principal) | CPT/HCPCS: A0425; A0429 ==

== ENCOUNTER 2023-08-14 18:50 | Outpatient (CLI) | payer MEDICARE, MEDICAID | END 2023-08-14 18:51 | disposition critical access hospital (66) | LOC: EMS 18:50 | DX: M54.50 Low back pain, unspecified (principal); M79.605 Pain in left leg; Z98.890 Other specified postprocedural states | CPT/HCPCS: A0425; A0429 ==

== ENCOUNTER 2023-08-14 19:04 | Emergency (ER) | payer MEDICARE, MEDICAID ==
[2023-08-14] MEDS ORDERED: ONDANSETRON 4 MG/2 ML VIAL IVP STA (19:10)
[2023-08-14] MEDS ORDERED: MORPHINE 2 MG/ML CARPUJECT IVP STA ×2 (19:10→20:34)
--- NOTE | 2023-08-14 19:11 | ED Physician Documentation ---
PD HPI BACK PAIN - Stated complaint Stated Complaint: INCREASING BACK PAIN/LEFT LEG NUMBNESS - History obtained from History obtained from: Patient - Additional information Additional information: 73-year-old woman with history of lumbar fusion had a discectomy done by Dr. Gallardo at [facility] today. She left the hospital around 1130 this morning and despite taking oxycodone, Tylenol, gabapentin and Valium has severe low back pain. She also has tingling of the left lateral leg. She denies saddle anesthesia, fevers, incontinence. She cannot walk but that is due to the pain. She is feeling nauseous from the pain. PD PAST MEDICAL HISTORY - Past Medical History Cardiovascular: High cholesterol Respiratory: COPD Neuro: None Endocrine/Autoimmune: HyPOthyroidism GI: None HARVEST MANAGER: None : Kidney stones HEENT: Other Psych: None Musculoskeletal: Osteoarthritis, Chronic back pain Derm: Eczema, Psoriasis - Past Surgical History Past Surgical History: Yes /HARVEST MANAGER: Hysterectomy, Oophrectomy, Breast reduction Cardiovascular: Lobectomy, Other HEENT: Tonsil/Adenoidectomy - Present Medications Home Medications: Ambulatory Orders Medication Instructions Recorded Confirmed Primidone [Mysoline] 50 mg PO BID PRN 02/29/20 01/15/22 Tizanidine HCl 4 mg PO DAILY PRN 02/29/20 01/15/22 Loratadine [Claritin] 10 mg PO DAILY PRN #10 tablet 03/21/20 01/15/22 Meloxicam [Mobic] 7.5 mg PO BID PRN #20 tab 11/24/20 01/15/22 Oxycodone HCl/Acetaminophen 1 - 2 each PO Q6H PRN #14 tab 11/24/20 01/15/22 [Percocet 5-325 mg Tablet] Gabapentin [Neurontin] 300 mg PO TID #60 11/26/20 01/15/22 Acetaminophen [Pain Relief Extra 500 mg PO Q6HR PRN 01/15/22 01/15/22 Strength] Albuterol Sulfate [Proair Hfa 1 - 2 puffs INH Q4H PRN 01/15/22 01/15/22 Inhaler] Atorvastatin [Lipitor] 40 mg PO QPM 01/15/22 01/15/22 Azelastine HCl 1 drops OP BID PRN 01/15/22 01/15/22 Baclofen [Lioresal] 10 mg PO TID PRN 01/15/22 01/15/22 Cholecalciferol (Vitamin D3) 125 mcg PO DAILY 01/15/22 01/15/22 [Vitamin D3] Montelukast [Singulair] 10 mg PO QPM 01/15/22 01/15/22 Vitamin B Complex Vit C No.3 [B 1 each PO DAILY 01/15/22 01/15/22 Complex with Vitamin C] oxyCODONE [Roxicodone] 5 mg ORAL Q6HR PRN 01/15/22 01/15/22 predniSONE [Deltasone] 20 mg PO [id number] #21 tab 07/21/22 Morphine Ir [Ms Ir] 15 mg PO Q6H PRN #14 tablet 08/02/22 predniSONE [Deltasone] 10 mg PO [id number] #42 tab 08/02/22 - Allergies Allergies/Adverse Reactions: Allergies Allergy/AdvReac Type Severity Reaction Status Date / Time aspirin Allergy Nausea Verified 08/14/23 19:18 fentanyl Allergy Anaphylaxis Verified 08/14/23 19:18 hydromorphone Allergy Unknown Verified 08/14/23 19:18 Penicillins Allergy vomiting, Verified 08/14/23 19:18 visual changes - Social History Does the pt smoke?: No Smoking Status: Never smoker Does the pt drink ETOH?: No Does the pt have substance abuse?: No - Immunizations Immunizations are current?: Yes - POLST Patient has POLST: No PD ED PE NORMAL - Vitals Vital signs reviewed: Yes - General General: Alert and oriented X 3, Other (Crying and shaking and quite anxious) - Abdomen Abdomen: Normal bowel sounds, Soft, Non tender - Back Back: No CVA TTP, No spinal TTP, Other (There is a sutured midline incision over the low back that is clean dry and intact. There is just a little bit of blood on the bandage but not a significant amount.) - Extremities Extremities: Other (The patient has equal and normal Achilles and patellar reflexes bilaterally. Normal sensation in all areas of the legs. Patient denies saddle anesthesia. Normal strength in flexion-extension at the ankles, knees, and flexion of the hips.) - Neuro Neuro: Alert and oriented X 3, Normal speech Results - Vitals Vitals: Vital Signs - 24 hr 08/14/23 08/14/23 19:05 21:50 Temperature 35.9 C L 37 C Heart Rate 106 H 83 Respiratory 18 20 Rate Blood Pressure 135/106 H 128/76 O2 Saturation 98 100 Oxygen O2 Source Room air - Labs Labs: Laboratory Tests 08/14/23 08/14/23 19:30 19:30 WBC 7.1 RBC 4.14 L Hgb 13.0 Hct 39.1 MCV 94.4 MCH 31.4 H MCHC 33.2 RDW 12.7 Plt Count 226 MPV 10.3 Neut # (Auto) 5.6 Lymph # (Auto) 0.7 L [place] # (Auto) 0.8 Eos # (Auto) 0.0 Baso # (Auto) 0.0 Absolute Nucleated RBC 0.00 Nucleated RBC % 0.0 Sodium 136 Potassium 3.8 Chloride 100 L Carbon Dioxide 26 Anion Gap 10.0 BUN 8 Creatinine 0.6 Estimated GFR (MDRD) 98 Glucose 123 H Calcium 9.4 PD Medical Decision Making - ED course ED course: 73-year-old woman with back pain after a discectomy today that has not been responsive to her home meds. She received divided doses of morphine here and pain improved but she was still unable to ambulate due to the pain. Called to [facility] for consultation and hopeful transfer up of postoperative pain control at 9:10 PM. Departure - Departure Disposition: 02 Transfer Acute Care Hosp Clinical Impression: Intractable low back pain, Postoperative pain Condition: Serious Discharge Date/Time: 08/14/23 23:09
[2023-08-14 20:01] LABS: BASOPHILS % (AUTO) 0.3 %; EOSINOPHILS % (AUTO) 0.1 %; HCT - HEMATOCRIT 39.1 % (37.0-47.0); LYMPHOCYTES # (AUTO) 0.7 10^3/uL (1.5-3.5); LYMPHOCYTES % (AUTO) 9.9 %; MEAN CORPUSCULAR HEMOGLOBIN 31.4 pg (27.0-31.0); MEAN CORPUSCULAR HGB CONC 33.2 g/dL (32.0-36.0); MEAN CORPUSCULAR VOLUME 94.4 fL (81.0-99.0); MEAN PLATELET VOLUME 10.3 fL (7.9-10.8); MONOCYTES # (AUTO) 0.8 10^3/uL (0.0-1.0); MONOCYTES % (AUTO) 10.6 %; NEUTROPHILS # (AUTO) 5.6 10^3/uL (1.5-6.6); PLT - PLATELET COUNT 226 10^3/uL (130-450); RED BLOOD COUNT 4.14 10^6/uL (4.20-5.40); RED CELL DISTRIBUTION WIDTH 12.7 % (12.0-15.0); WHITE BLOOD COUNT 7.1 x10^3/uL (4.8-10.8)
[2023-08-14 20:16] LABS: CALCIUM 9.4 mg/dL (8.5-10.3); CREATININE 0.6 mg/dL (0.6-1.3); POTASSIUM 3.8 mmol/L (3.5-4.5)
[2023-08-14] MEDS ORDERED: ONDANSETRON 4 MG/2 ML VIAL IVP PRN (21:10)
[2023-08-14] MEDS ORDERED: ACETAMINOPHEN 500 MG TABLET PO PRN (21:10)
[2023-08-14] MEDS ORDERED: MORPHINE 2 MG/ML CARPUJECT IVP PRN (21:11)
[2023-08-14 21:56] VITALS: BP 128/76; O2SAT 100
--- NOTE | 2023-08-14 21:58 | ED Physician Documentation ---
ED Addendum - Addendum Addendum: 08/14/23 21:57 d/w Dr. kunz, [facility] orthopedist who recommends admission to hospitalist service at [facility] with him consulting. 08/14/23 22:20 d/w hospitalist Dr. Barakat who accepts in transfer. Disposition transfer condition stable impression 1. postsurgical pain 2. chronic back pain 08/14/23 22:22
[2023-08-14] MEDS ORDERED: ACETAMINOPHEN 500 MG TABLET PO SCH (22:00)
[2023-08-14] MEDS ORDERED: GABAPENTIN 100 MG CAPSULE PO SCH (22:00)
[2023-08-14] MEDS ORDERED: oxyCODONE 5 MG TABLET PO SCH (22:00)
[2023-08-15] MEDS ORDERED: PANTOPRAZOLE 40 MG TABLET PO SCH (07:00)
== END 2023-08-14 23:09 | disposition short-term general hospital (02) ==
LOC: EDUNIT# → ED 19:04
DX: G89.18 Other acute postprocedural pain (principal); M54.50 Low back pain, unspecified; G89.29 Other chronic pain; E78.00 Pure hypercholesterolemia, unspecified; J44.9 Chronic obstructive pulmonary disease, unspecified; E03.9 Hypothyroidism, unspecified; Z79.899 Other long term (current) drug therapy
CPT/HCPCS: 36415; 80048; 85025; 96374; 96375; 96376; 99285; A9270; 85610

== ENCOUNTER 2023-08-14 23:11 | Outpatient (CLI) | payer MEDICARE, MEDICAID | END 2023-08-14 23:12 | disposition short-term general hospital (02) | LOC: EMS 23:11 | PROVIDERS: ATTEND Emergency Medicine | DX: G89.18 Other acute postprocedural pain (principal); Z74.01 Bed confinement status; R53.1 Weakness | CPT/HCPCS: A0425; A0428 ==